=== PATIENT | female | born 1940 | race Caucasian/White ===

== ENCOUNTER 2017-04-11 19:38 | Inpatient (IN) | payer MEDICARE, MEDICAID ==
[2017-04-11] MEDS ORDERED: Albuterol 2.5 MG/3 ML NEB.SOL* (0.083%) INH PRN (20:13)
[2017-04-11] MEDS ORDERED: Piperacillin/Tazobac ADVAN(*) 3.375 GM in NS 0.9% 100 ML* 100 ML IVPB ONE (20:17)
[2017-04-11] MEDS ORDERED: NS 0.9% 1000 ML* 1,000 ML IV SCH (20:30)
[2017-04-11 21:20] LABS: Hematocrit 43 % (35-47); Hemoglobin 13.8 g/dl (12.0-16.0); Mean Corpuscular HGB Conc 32 g/dl (31-36); Mean Corpuscular Hemoglobin 29 pg (27-31); Mean Corpuscular Volume 92 fL (80-97); Mean Platelet Volume 10 um3 (7.4-10.4); Red Blood Count 4.71 10^6/ul (4.0-5.4); Red Cell Distribution Width 14 % (10.5-15); White Blood Count 26.1 10^3/ul (3.5-10.8)
[2017-04-11 21:30] LABS: Albumin 3.5 g/dL (3.2-5.2); BUN/Creatinine Ratio 26.6 (8-20); Calcium 9.9 mg/dL (8.6-10.3); Direct Bilirubin 0.3 mg/dL (0.03-0.18); EGFR African American 36.9 (>60); EGFR Non-African American 28.7 (>60); Globulin 4.5 g/dL (2-4); Indirect Bilirubin 0.4 mg/dL (0.3-1.0); Potassium 4.1 mmol/L (3.5-5.0); Total Bilirubin 0.7 mg/dL (0.2-1.0)
[2017-04-11 21:33] LABS: Troponin I 0.04 ng/mL (<0.04)
[2017-04-11] MEDS ORDERED: Levofloxacin 500 MG IVPREMIX(* 500 MG/100 ML BAG IVPB ONE (21:58)
--- NOTE | 2017-04-11 22:11 | RAD ---
Indication: Fever, sepsis. Single frontal view of the chest performed at 2119 hours was reviewed. Comparison is made with previous exam dated July 31, 2015. Cardiomegaly is noted. Mild vascular congestion is noted. Left base atelectasis is noted. IMPRESSION: CARDIOMEGALY. MILD INTERSTITIAL EDEMA IS NOTED.
[2017-04-11] MEDS ORDERED: Acetaminophen TAB* 325 MG PO PRN ×2 (23:03→23:05)
[2017-04-11] MEDS ORDERED: CMCS: Melatonin (NF) 3 MG TAB PO PRN (23:09)
[2017-04-11] MEDS ORDERED: Ondansetron INJ* 2 MG/ML VIAL IV PRN (23:21)
--- NOTE | 2017-04-12 00:14 | HP ---
H&P (Free Text) History and Physical: PCP: Jesenia Date/Time: 04/11/2017 2282 CC: "They [[facility] staff] thought I was sick." HPI: Mrs Munoz is a 76YO female HX chronic diastolic HF, DM2, AFIB who states she doesn't know why she is in the ER. She was brought in by ambulance from [facility] with report of confusion & fever to 102F. She reports chills, but denies fever, sweats, N/V/D, chest pain, cough, congestion, headache, neck pain , abdominal pain, earache, sore throat, change in bowel/bladder, open wound, and rash. She adds that she "feels fine". PMedHx DM2, insulin requiring CKD stg 3b chronic diastolic HF AFIB, on warfarin HTN GERD Ambulatory Orders Nursing to reconcile. Ascorbic Acid [Vitamin C] 250 mg PO DAILY 03/16/15 Cholecalciferol [Vitamin D3] 5,000 unit PO WEEKLY 03/16/15 Ferrous Sulfate TAB* 325 mg PO DAILY 03/16/15 Fesoterodine (NF) [Toviaz (NF)] 8 mg PO DAILY 03/16/15 Insulin Detemir (NF) [Levemir (NF)] 17 unit SUBCUT BID 03/16/15 Omeprazole CAP* [Prilosec CAP* 20 MG] 20 mg PO DAILY 03/16/15 Pregabalin CAP(*) [Lyrica CAP(*)] 100 mg PO BID 03/16/15 Simvastatin (NF) [Zocor (NF)] 40 mg PO DAILY 03/16/15 Torsemide TAB* [Demadex 20 MG*] 20 mg PO DAILY 03/16/15 HYDROcodone/ACETAMIN 5-325 MG* [[place] 5-325 TAB*] 2 tab PO Q4H PRN 04/08/15 Calcium Carbonate-Cholecalcife [Calcium 500+D 500-200 mg-Unit] 1 tab PO DAILY Polyethylene Glycol 3350* [Miralax*] 17 gm PO DAILY 07/31/15 Senna/Docusate (NF) [Sennokot-S(NF)] 2 tab PO BEDTIME 07/31/15 predniSONE TAB* [Deltasone TAB*] 5 mg PO DAILY 07/31/15 Heparin Sodium (Porcine) [Heparin Sodium] 5,000 unit SUBCUT Q8H 3 Days ml 08/02 Levofloxacin TAB* [Levaquin 250 Tab*] 250 mg PO DAILY #5 tab 08/03/15 Warfarin TAB(*) [Coumadin TAB(*)] 4 mg PO DAILY #0 08/03/15 Allergies No Known Allergies Allergy (Verified 07/31/15 15:51) SocHx: no tobacco, alcohol, or recreational drugs; resides at [facility], wheelchair bound; DNR code status FamHx: reviewed, paucity of information, non-contributory to presentation ROS: as above, otherwise reviewed and all were negative vitals: Vital Signs Temp 38.2 C 04/11/17 23:50 Pulse 86 04/11/17 23:50 Resp 16 04/11/17 23:50 BP 140/65 04/11/17 23:50 Pulse Ox 96 04/11/17 23:50 Intake & Output 04/11/17 04/11/17 04/12/17 11:59 23:59 11:59 Intake Total 1200 Balance 1200 Weight 136.078 kg Intake: IV Fluids 1200 Constitutional: NAD, normally developed, supermorbidly obese white female HEENM: atraumatic; sclera/conjunctiva: non-icteric/clear; hearing: clinically intact; oropharynx: clear, mucosa tacky Neck: soft tissue: no nuchal rigidity, non-tender; thyroid: normal Pulmonary: diminished B with sparse mild crackles, fair aeration, no accessory muscle use CV: RR/RR, normal S1S2, no carotid bruit, no jugular venous distention, 2+ B DP/ PT, no edema Abdominal: soft, non-distended, non-tender, no rebound/guarding/rigidity, normoactive bowel sounds, no hepatosplenomegaly or masses, no costovertebral angle tenderness Lymph: neck: ; axilla: ; groin: Musculoskeletal: general: grossly intact, non-tender to palpation; gait: non- ambulatory at baseline, uses wheelchair Integumental: normal appearance and texture of exposed skin Psychiatric orientation: AA&O to PP, not ST affect: calm mood: cooperative eye contact: fair content: unreliable responses: timely insight: poor Testing: Lab Results 04/11/17 04/11/17 04/11/17 Range/Units 21:02 21:02 21:02 WBC 26.1 H (3.5-10.8) 10^3/ul RBC 4.71 (4.0-5.4) 10^6/ul Hgb 13.8 (12.0-16.0) g/dl Hct 43 (35-47) % MCV 92 (80-97) fL MCH 29 (27-31) pg MCHC 32 (31-36) g/dl RDW 14 (10.5-15) % Plt Count 534 H (150-450) 10^3/ul MPV 10 (7.4-10.4) um3 Neut % (Auto) 74.9 (38-83) % Lymph % (Auto) 14.7 L (25-47) % [place] % (Auto) 8.7 (1-9) % Eos % (Auto) 0.4 (0-6) % Baso % (Auto) 1.3 (0-2) % Absolute Neuts (auto) 19.5 H (1.5-7.7) 10^3/ul Absolute Lymphs (auto) 3.8 (1.0-4.8) 10^3/ul Absolute Monos (auto) 2.3 H (0-0.8) 10^3/ul Absolute Eos (auto) 0.1 (0-0.6) 10^3/ul Absolute Basos (auto) 0.3 H (0-0.2) 10^3/ul Absolute Nucleated RBC 0.02 10^3/ul Nucleated RBC % 0.1 INR (Anticoag Therapy) 1.20 H (0.77-1.02) APTT 58.1 H (26.0-36.3) seconds Sodium 136 (133-145) mmol/L Potassium 4.1 (3.5-5.0) mmol/L Chloride 86 L (101-111) mmol/L Carbon Dioxide 43 H* (22-32) mmol/L Anion Gap 7 (2-11) mmol/L BUN 46 H (6-24) mg/dL Creatinine 1.73 H (0.51-0.95) mg/dL Est GFR ( Amer) 36.9 (>60) Est GFR (Non-Af Amer) 28.7 (>60) BUN/Creatinine Ratio 26.6 H (8-20) Glucose 197 H (70-100) mg/dL Lactic Acid (0.5-2.0) mmol/L Calcium 9.9 (8.6-10.3) mg/dL Total Bilirubin 0.70 (0.2-1.0) mg/dL Direct Bilirubin 0.30 H (0.03-0.18) mg/dL Indirect Bilirubin 0.4 (0.3-1.0) mg/dL AST 18 (13-39) U/L ALT 8 (7-52) U/L Alkaline Phosphatase 129 H (34-104) U/L Troponin I 0.04 H* (<0.04) ng/mL Total Protein 8.0 (6.4-8.9) g/dL Albumin 3.5 (3.2-5.2) g/dL Globulin 4.5 H (2-4) g/dL Albumin/Globulin Ratio 0.8 L (1-3) 04/11/17 Range/Units 21:02 WBC (3.5-10.8) 10^3/ul RBC (4.0-5.4) 10^6/ul Hgb (12.0-16.0) g/dl Hct (35-47) % MCV (80-97) fL MCH (27-31) pg MCHC (31-36) g/dl RDW (10.5-15) % Plt Count (150-450) 10^3/ul MPV (7.4-10.4) um3 Neut % (Auto) (38-83) % Lymph % (Auto) (25-47) % [place] % (Auto) (1-9) % Eos % (Auto) (0-6) % Baso % (Auto) (0-2) % Absolute Neuts (auto) (1.5-7.7) 10^3/ul Absolute Lymphs (auto) (1.0-4.8) 10^3/ul Absolute Monos (auto) (0-0.8) 10^3/ul Absolute Eos (auto) (0-0.6) 10^3/ul Absolute Basos (auto) (0-0.2) 10^3/ul Absolute Nucleated RBC 10^3/ul Nucleated RBC % INR (Anticoag Therapy) (0.77-1.02) APTT (26.0-36.3) seconds Sodium (133-145) mmol/L Potassium (3.5-5.0) mmol/L Chloride (101-111) mmol/L Carbon Dioxide (22-32) mmol/L Anion Gap (2-11) mmol/L BUN (6-24) mg/dL Creatinine (0.51-0.95) mg/dL Est GFR ( Amer) (>60) Est GFR (Non-Af Amer) (>60) BUN/Creatinine Ratio (8-20) Glucose (70-100) mg/dL Lactic Acid 1.6 (0.5-2.0) mmol/L Calcium (8.6-10.3) mg/dL Total Bilirubin (0.2-1.0) mg/dL Direct Bilirubin (0.03-0.18) mg/dL Indirect Bilirubin (0.3-1.0) mg/dL AST (13-39) U/L ALT (7-52) U/L Alkaline Phosphatase (34-104) U/L Troponin I (<0.04) ng/mL Total Protein (6.4-8.9) g/dL Albumin (3.2-5.2) g/dL Globulin (2-4) g/dL Albumin/Globulin Ratio (1-3) ECG, personally reviewed: sinus tachycardia rate 103, no ischemia CXR, personally reviewed: IMPRESSION: CARDIOMEGALY. MILD INTERSTITIAL EDEMA IS NOTED. Impression: 76F presenting from [place] w/ AMS and fever to 102F found to have bibasilar pneumonia w/ probable L effusion DIAGNOSIS & PLAN Primary sepsis 2nd bibasilar pneumonia w/ probable L effusion, HCAP : IV piperacillin & levofloxacin; will hold on using vancomycin to avoid nephrotoxicity as her renal function is stg 3b : IVFs, cautiously given chronic distolic HF : supplemental oxygen : blood & sputum CXs : check urine Legionella & S pneumo antigens : check rapid influenza : supportive care Secondary DM2, insulin requiring : update A1c : insulin carb ratio diet : basal/bolus/correctional insulin : ACHS glucometry CKD stg 3b : montitor periodically chronic diastolic HF : daily weights : strict I&Os AFIB, on warfarin : review meds once reconciled HTN : review meds once reconciled GERD : continue omeprazole Admission Rational: inpatient for sepsis 2nd HCAP requiring IVFs & IV ABX in patient at high risk of rapid/terminal decompensation; inappropriate for outpatient setting DVTp: warfarin, once reconciled Code Status: DNR/I HCP: son, Syed
[2017-04-12 01:47] LABS: Urine Bacteria Absent (Absent); Urine Bilirubin Negative (Negative); Urine Glucose Negative (Negative); Urine Nitrite Negative (Negative)
[2017-04-12] MEDS: NS 0.9% 1000 ML* 1,000 ML IV SCH ×2 (02:32→13:26)
[2017-04-12] MEDS ORDERED: Omeprazole CAP* 20 MG PO SCH (06:00)
[2017-04-12] MEDS ORDERED: Cefepime 1 GM in Dextrose(*) 1 GM/50 ML BAG IV SCH (06:00)
[2017-04-12 06:41] LABS: Hematocrit 40 % (35-47); Mean Corpuscular HGB Conc 32 g/dl (31-36); Mean Corpuscular Hemoglobin 30 pg (27-31); Mean Corpuscular Volume 93 fL (80-97); Mean Platelet Volume 10 um3 (7.4-10.4); Red Blood Count 4.35 10^6/ul (4.0-5.4); Red Cell Distribution Width 14 % (10.5-15); White Blood Count 22.8 10^3/ul (3.5-10.8)
[2017-04-12 06:45] LABS: Comments Flag Yes
[2017-04-12 07:07] LABS: Calcium 9.2 mg/dL (8.6-10.3); EGFR African American 39.6 (>60); EGFR Non-African American 30.8 (>60); Potassium 3.4 mmol/L (3.5-5.0)
[2017-04-12] MEDS ORDERED: Docusate CAP* 100 MG PO SCH (09:00)
[2017-04-12] MEDS: Insulin LISPRO* 1 UNITS UNIT SUBCUT SCH ×8 (09:00→22:43)
[2017-04-12] MEDS: guaiFENesin ER TAB 600 MG PO SCH ×2 (09:01→22:22)
[2017-04-12 10:15] LABS: Troponin I 0.05 ng/mL (<0.04)
--- NOTE | 2017-04-12 18:01 | PN ---
Subjective Date of Service: 04/12/17 Interval History: Pt is feeling well. She denies any pain or SOB. She states she is not coughing much. Objective Active Medications: Acetaminophen (Tylenol Tab*) 650 mg PO Q6H PRN PRN Reason: FEVER/PAIN Last Admin: 04/12/17 02:51 Dose: 650 mg Guaifenesin (Mucinex*) 1,200 mg PO BID [facility] Last Admin: 04/12/17 09:01 Dose: 1,200 mg Levofloxacin/Dextrose (Levaquin 750 Mg Ivpremix(*)) 750 mg in 150 mls @ 100 mls /hr IVPB Q24H [facility] Sodium Chloride (Ns 0.9% 1000 Ml*) 1,000 mls @ 100 mls/hr IV PER RATE [facility] Last Admin: 04/12/17 13:26 Dose: 100 mls/hr Insulin Glargine (Lantus(*)) 17 units SUBCUT BID [facility] Stop: 04/13/17 20:00 Insulin Human Lispro (Humalog*) 0 units SUBCUT AC [facility] PRN Reason: Protocol Last Admin: 04/12/17 13:05 Dose: 4 unit Insulin Human Lispro (Humalog*) 0 units SUBCUT ACHS [facility] PRN Reason: Protocol Last Admin: 04/12/17 13:05 Dose: 6 unit Melatonin (Melatonin (Nf)) 3 mg PO BEDTIME PRN; Protocol PRN Reason: Sleep Omeprazole (Prilosec Cap*) 20 mg PO DAILY@0600 [facility] Last Admin: 04/12/17 05:40 Dose: 20 mg Ondansetron HCl (Zofran Inj*) 4 mg IV Q6H PRN PRN Reason: NAUSEA Vital Signs - 8 hr 04/12/17 04/12/17 11:21 15:31 Temperature 98.2 F 98.1 F Pulse Rate 76 76 Respiratory 16 15 Rate Blood Pressure 112/43 126/63 (mmHg) O2 Sat by Pulse 95 97 Oximetry Oxygen Devices in Use Now: Nasal Cannula Appearance: Elderly obese female sitting in a recliner, NAD Eyes: No Scleral Icterus Ears/Nose/Mouth/Throat: Mucous Membranes Moist Respiratory: Symmetrical Chest Expansion and Respiratory Effort, Clear to Auscultation - few bibasilar crackles Cardiovascular: NL Sounds; No Murmurs; No JVD, RRR, No Edema Abdominal: NL Sounds; No Tenderness; No Distention Extremities: No Clubbing, Cyanosis Skin: No Rash or Ulcers, No Nodules or Sclerosis Neurological: - - pleasantly confused Result Diagrams: 04/12/17 06:13 04/12/17 06:13 Microbiology and Other Data: Microbiology 04/12/17 01:20 Legionella Urinary Antigen - Final Urine Negative Legionella Streptococcus pneumoniae Ag Screen - Final Negative S. pneumo Antigen 04/12/17 02:00 Nasal Screen MRSA (PCR)(ANDREEA) - Final Nasal Mrsa Negative 04/12/17 02:00 Influenza Types A,B Antigen (ANDREEA) - Final Nasal Specimen received for Influenza A/B Molecular testing Assess/Plan/Problems-Billing Ms Munoz is a 76 yo F who has a h/o type II DM, afib, diastolic CHF, CKD and HTN who presented to the ER with confusion and fever from [facility]. - Patient Problems (1) Sepsis Current Visit: Yes Status: Acute Comment: Sepsis by sepsis 2 criteria ( leukocytosis and fever). Continue IVF and treat bibasilar pneumonia. (2) Pneumonia Current Visit: Yes Status: Acute Code(s): J18.9 - PNEUMONIA, UNSPECIFIED ORGANISM SNOMED Code(s): 785509958 Comment: The patient has a bibasilar pneumonia. Will check sputum culture, legionella and s. pneumoniae urinary antigens. Continue levaquin 750mg IV daily. (3) Type 2 diabetes mellitus Current Visit: Yes Status: Acute Comment: Sugars are under fair control. Monitor on home dose of insulin. (4) CKD (chronic kidney disease) stage 3, GFR 30-59 ml/min Current Visit: Yes Status: Acute Code(s): N18.3 - CHRONIC KIDNEY DISEASE, STAGE 3 (MODERATE) SNOMED Code(s): 919215137 Comment: Creatinine is close to baseline. Hold diuretic and follow up labs tomorrow. (5) Afib Current Visit: Yes Status: Acute Code(s): I48.91 - UNSPECIFIED ATRIAL FIBRILLATION SNOMED Code(s): 80191503 Comment: INR is subtherapeutic. Will increase coumadin to 6mg daily. She is in a controlled rate. (6) DVT prophylaxis Current Visit: Yes Status: Acute Code(s): TIR7344 - SNOMED Code(s): 362764817 Comment: SQ heparin while INR is subtherapeutic. (7) DNR (do not resuscitate) Current Visit: Yes Status: Acute
[2017-04-12] MEDS ORDERED: HYDROcodone/ACETAMIN 5-325 MG* 1 TAB PO PRN (18:15)
[2017-04-12] MEDS ORDERED: Warfarin TAB(*) 6 MG PO SCH (18:17)
[2017-04-12] MEDS ORDERED: Insulin GLARGINE(*) 1 UNITS UNIT SUBCUT SCH (21:00)
[2017-04-12] MEDS ORDERED: Levofloxacin 750 MG IVPREMIX(* 750 MG/150 ML BAG IVPB SCH (22:00)
[2017-04-12] MEDS: Heparin VIAL(*) 5000 UNITS/ML VIAL (FIVE THOUSAND) SUBCUT SCH (22:22)
[2017-04-12] MEDS: Pregabalin CAP(*) 100 MG PO SCH (22:22)
[2017-04-12] MEDS: Insulin GLARGINE(*) 1 UNITS UNIT SUBCUT SCH (22:36)
[2017-04-13] MEDS: NS 0.9% 1000 ML* 1,000 ML IV SCH ×2 (01:16→11:10)
[2017-04-13] MEDS ORDERED: Albuterol 2.5 MG/3 ML NEB.SOL* (0.083%) INH ONE (01:20)
[2017-04-13] MEDS: Heparin VIAL(*) 5000 UNITS/ML VIAL (FIVE THOUSAND) SUBCUT SCH (06:12)
[2017-04-13] MEDS: Insulin LISPRO* 1 UNITS UNIT SUBCUT SCH ×4 (08:03→12:41)
[2017-04-13] MEDS ORDERED: predniSONE TAB* 5 MG PO SCH (09:00)
[2017-04-13] MEDS ORDERED: Omeprazole CAP* 20 MG PO SCH (09:00)
[2017-04-13] MEDS ORDERED: Atorvastatin* 20 MG TAB PO SCH (09:00)
[2017-04-13 10:07] LABS: Hematocrit 41 % (35-47); Mean Corpuscular HGB Conc 32 g/dl (31-36); Mean Corpuscular Hemoglobin 30 pg (27-31); Mean Corpuscular Volume 93 fL (80-97); Mean Platelet Volume 10 um3 (7.4-10.4); Red Blood Count 4.42 10^6/ul (4.0-5.4); Red Cell Distribution Width 14 % (10.5-15); White Blood Count 18.1 10^3/ul (3.5-10.8)
[2017-04-13 10:08] LABS: Add Diff/Slide Review? Slide Review Added; Comments Flag Yes
[2017-04-13] MEDS: Pregabalin CAP(*) 100 MG PO SCH (10:08)
[2017-04-13] MEDS: guaiFENesin ER TAB 600 MG PO SCH (10:08)
[2017-04-13] MEDS: Insulin GLARGINE(*) 1 UNITS UNIT SUBCUT SCH (10:10)
[2017-04-13] MEDS: Polyethylene Glycol 3350* 17 GM PACKET PO SCH ×2 (10:10→10:12)
[2017-04-13 10:21] LABS: BUN/Creatinine Ratio 25.8 (8-20); Calcium 9.4 mg/dL (8.6-10.3); EGFR African American 52.3 (>60); EGFR Non-African American 40.7 (>60); Potassium 3.5 mmol/L (3.5-5.0)
[2017-04-13 12:09] VITALS: BP 136/59
--- NOTE | 2017-04-13 15:12 | DS ---
CC: Providers at [facility] * DISCHARGE SUMMARY DATE OF ADMISSION: 04/11/2017 DATE OF DISCHARGE: 04/13/2017 PRIMARY CARE PROVIDER: Provider at [facility] PRINCIPAL DIAGNOSIS: 1. Probable pneumonia. SECONDARY DIAGNOSES: 1. Type 2 diabetes. 2. Stage 4 chronic kidney disease. 3. Chronic diastolic congestive heart failure. 4. Atrial fibrillation. 5. Hypertension. 6. Gastroesophageal reflux disease. DISCHARGE MEDICATIONS: 1. Prednisone 5 mg p.o. daily. 2. Torsemide 20 mg p.o. daily. 3. Simvastatin 40 mg p.o. daily. 4. Senokot S 2 tabs p.o. q.h.s. 5. Lyrica 100 mg p.o. b.i.d. 6. MiraLAX 17 g p.o. daily. 7. Omeprazole 20 mg p.o. daily. 8. Insulin detemir 17 units subcutaneous twice a day. 9. Heparin 5000 units subcutaneous every 8 hours until INR is greater than 2. 10. [place] 5/325 two tabs p.o. every 4 hours p.r.n. pain. 11. Toviaz 8 mg p.o. daily. 12. Ferrous sulfate 325 mg p.o. daily. 13. Vitamin D3 5000 units p.o. weekly. 14. Calcium Plus D 1 tab p.o. daily. 15. Ascorbic acid 250 mg p.o. daily. 16. Coumadin 6 mg p.o. daily (new dose). 17. Melatonin 3 mg p.o. q.h.s. p.r.n. insomnia. 18. Levofloxacin 500 mg p.o. daily x4 doses. HOSPITAL COURSE: Ms. Munoz is a 76-year-old female who was brought to the emergency room with confusion and fever. The patient in the emergency room stated that she felt fine. She reported that the [facility] staff thought she was ill. The patient was found to have possible bibasilar pneumonia and was admitted, and started on IV antibiotic therapy. This has been tailored to levofloxacin. She will continue on levofloxacin 500 mg p.o. daily x4 more doses. The patient did have a markedly elevated white blood cell count of 26.1 thousand on admission. It is down to 18.1 thousand on the day of discharge. The patient has been afebrile since admission. The patient is requiring supplemental oxygen at 3L per minute but states she uses oxygen at [facility]. Also on admission patient was found to have also have elevated platelet count. This is trending down. Of note, the patient does have a chronically elevated white blood cell count and platelet count. Patient was also found to have increased creatinine above her baseline. This has now trended down back to her baseline with hydration. At this point the patient is felt to be stable for discharge back to [facility]. FOLLOWUP CONCERNS: The patient is being discharged to [facility] today 04/13/17. ACTIVITY LEVEL: As tolerated. DIET: Diabetic heart healthy. CONDITION ON DISCHARGE: Stable. 35 minutes was spent discharging this patient. [id number]/CPS #: [id number] EVELINE
== END 2017-04-13 16:51 | DRG 871 ==
LOC: ED 19:38 → MEDTELE 22:35
PROVIDERS: ADMIT Hospitalist; ATTEND Hospitalist
DX: A41.9 Sepsis, unspecified organism (principal); J18.9 Pneumonia, unspecified organism; N18.4 Chronic kidney disease, stage 4 (severe); E11.22 Type 2 diabetes mellitus with diabetic chronic kidney disease; I48.91 Unspecified atrial fibrillation; I13.0 Hypertensive heart and chronic kidney disease with heart failure and stage 1 through stage 4 chronic kidney disease, or unspecified chronic kidney disease; I50.32 Chronic diastolic (congestive) heart failure; Z68.41 Body mass index [BMI] 40.0-44.9, adult; E66.01 Morbid (severe) obesity due to excess calories; K21.9 Gastro-esophageal reflux disease without esophagitis; Z66 Do not resuscitate; Z79.52 Long term (current) use of systemic steroids; Z99.81 Dependence on supplemental oxygen; Z79.4 Long term (current) use of insulin; Z79.01 Long term (current) use of anticoagulants
CPT/HCPCS: 36415; 71010; 80048; 80053; 80076; 81003; 81015; 83036; 83605; 84484; 85025; 85610; 85730; 87040; 87502; 87641; 87899; 93005; 94640; A9270-GY; J0692; J1644; J1956; J2543; J7512

== ENCOUNTER 2017-04-14 14:40 | Inpatient (IN) | payer MEDICAID, MEDICARE ==
--- NOTE | 2017-04-14 15:44 | RAD ---
Indication: Shortness of breath, respiratory distress. Chronic obstructive pulmonary disease. Comparison: April 11, 2017 chest radiograph and March 18, 2015 CT abdomen. Technique: Upright AP 1524 hours Report: Elevated lung volumes and mild prominence of the interstitial markings. Grossly clear pleural spaces. Negative for pneumothorax. Cardiomegaly. Prominent mildly ill-defined central pulmonary vasculature with cephalization. Pulmonary vascular congestion may account for the prominence of the RIGHT hilum. IMPRESSION: 1. The constellation of findings favors pulmonary vascular congestion and interstitial edema. Radiographic follow-up suggested after therapy to assess for decrease in size of the RIGHT hilum to exclude a RIGHT hilar mass. 2. Stigmata of chronic obstructive pulmonary disease.
[2017-04-14] MEDS ORDERED: Ondansetron INJ* 2 MG/ML VIAL IV PRN (15:52)
[2017-04-14] MEDS ORDERED: Melatonin (NF) 3 MG TAB PO PRN (15:56)
[2017-04-14] MEDS ORDERED: Albuterol 2.5 MG/3 ML NEB.SOL* (0.083%) INH PRN (15:58)
[2017-04-14] MEDS ORDERED: Cefepime 2 GM in Dextrose(*) 2 GM/50 ML BAG IV SCH (16:00)
[2017-04-14] MEDS ORDERED: NS 0.9% 1000 ML* 1,000 ML IV SCH (16:00)
[2017-04-14] MEDS ORDERED: Albuterol/Ipratropium NEB.SOL* Albuterol 2.5 MG/Ipratropium 0.5 MG 3 ML INH SCH ×3 (16:00→19:00)
[2017-04-14] MEDS ORDERED: Dextrose 50% Syringe 50 ML* 25 GM/50 ML SYRINGE IV PUSH PRN (16:01)
[2017-04-14] MEDS ORDERED: Cefepime 2 GM in Dextrose(*) 2 GM/50 ML BAG IV ONE (16:22)
[2017-04-14 16:35] LABS: Add Diff/Slide Review? Manual Diff Added; Comments Flag Yes; Hematocrit 41 % (35-47); Hemoglobin 12.9 g/dl (12.0-16.0); Mean Corpuscular HGB Conc 32 g/dl (31-36); Mean Corpuscular Hemoglobin 30 pg (27-31); Mean Corpuscular Volume 93 fL (80-97); Mean Platelet Volume 10 um3 (7.4-10.4); Red Blood Count 4.35 10^6/ul (4.0-5.4); Red Cell Distribution Width 14 % (10.5-15); White Blood Count 13.4 10^3/ul (3.5-10.8)
[2017-04-14 16:47] LABS: Albumin 3.4 g/dL (3.2-5.2); C Reactive Protein 49.11 mg/L (< 5.00); Calcium 9.4 mg/dL (8.6-10.3); EGFR African American 47.9 (>60); EGFR Non-African American 37.3 (>60); Globulin 4.5 g/dL (2-4); Potassium 3.2 mmol/L (3.5-5.0); Total Bilirubin 0.3 mg/dL (0.2-1.0); Total Protein 7.9 g/dL (6.4-8.9)
[2017-04-14 16:49] LABS: Troponin I 0.01 ng/mL (<0.04)
[2017-04-14] MEDS ORDERED: Potassium Chlor TAB* 20 MEQ TAB.ER PO ONE (16:49)
[2017-04-14 16:52] LABS: Eosinophils % 2 % (0-6); Immature Granulocytes 1 % (0-9); Neutrophil % 61 % (38-83); Reactive Lymph % 7 % (0-6)
[2017-04-14 16:53] LABS: Add Path Review? YES; RBC Morphology Normal (Normal)
[2017-04-14] MEDS: Warfarin TAB(*) 6 MG PO SCH (17:52)
[2017-04-14] MEDS: Insulin LISPRO* 1 UNITS UNIT SUBCUT SCH (17:52)
[2017-04-14] MEDS ORDERED: Azithromycin IV(*) 500 MG in D5W 250 ML BAG* 250 ML IVPB SCH (18:00)
[2017-04-14] MEDS: Azithromycin IV(*) 500 MG in NS 0.9% 250 ML* 250 ML IVPB SCH (18:26)
[2017-04-14] MEDS ORDERED: Vancomycin(*) 2,000 MG in NS 0.9% 500 ML* 500 ML IVPB ONE (18:30)
[2017-04-14] MEDS: Pregabalin CAP(*) 100 MG PO SCH (20:49)
[2017-04-14] MEDS: Heparin VIAL(*) 5000 UNITS/ML VIAL (FIVE THOUSAND) SUBCUT SCH (20:56)
[2017-04-14] MEDS: Mometasone/Formoter 200/5 MDI INH SCH (21:15)
--- NOTE | 2017-04-14 21:18 | ED ---
Orion Millan Gabriel, scribed for Jack Crews MD on 04/14/17 at 1452 . Respiratory - HPI Summary HPI Summary: This patient is a 76 year old F BIBA to [facility] with a chief complaint of PNA exacerbation since [employer]. Patient reports chills and fever. Patient denies SOB. Patient was admitted last night for PNA and was released this morning. She has used her at home neb with some relief and uses 2L of NC O2 at home. - History of Current Complaint Chief Complaint: EDShortnessOfBreath Stated Complaint: RESPIRATORY DISTRESS Time Seen by Provider: 04/14/17 14:49 Hx Obtained From: Patient Onset/Duration: Still Present Timing: Constant Alleviating Factor(s): Other - neb Associated Signs and Symptoms: Fever, Chills - Allergy/Home Medications Allergies/Adverse Reactions: Allergies Allergy/AdvReac Type Severity Reaction Status Date / Time Cetirizine [From [facility]] Allergy Unknown Verified 04/14/17 14:59 Reaction Details PMH/Surg Hx/FS Hx/Imm Hx Previously Healthy: No Endocrine/Hematology History: Reports: Hx Diabetes - DM II requries insulin Cardiovascular History: Reports: Hx Hypertension, Other Cardiovascular Problems/ Disorders - Afib, Chronic diastolic heart failure Respiratory History: Reports: Hx Chronic Obstructive Pulmonary Disease (COPD) GI History: Reports: Hx Gastroesophageal Reflux Disease History: Comment Only: Other Problems/Disorders - CKD stage 3 Sensory History: Reports: Hx Contacts or Glasses - glasses Denies: Hx Hearing Aid Opthamlomology History: Reports: Hx Contacts or Glasses - glasses Psychiatric History: Reports: Hx Depression - Surgical History Surgery Procedure, Year, and Place: hysterectomy Hx Anesthesia Reactions: No - Immunization History Date of Tetanus Vaccine: Unk Date of Influenza Vaccine: Fall 2014 - Family History Known Family History: Positive: Diabetes - Social History Alcohol Use: None Substance Use Type: Reports: None Smoking Status (MU): Former Smoker Have You Smoked in the Last Year: No Review of Systems Positive: Fever, Chills Positive: Other - PNA exacerbation. Negative: Shortness Of Breath All Other Systems Reviewed And Are Negative: Yes Physical Exam - Summary Physical Exam Summary: Appearance: The patient is obese in no acute distress and in no acute pain. Skin: The skin is warm and dry and skin color reflects adequate perfusion. HEENT: ~The head is normocephalic and atraumatic. The pupils are equal and reactive. The conjunctivae are clear and without drainage. ~Nares are patent and without drainage. ~Mouth reveals moist mucous membranes and the throat is without erythema and exudate. ~The external ears are intact. The ear canals are patent and without drainage. The tympanic membranes are intact. Neck: the neck is supple with full range of motion and non-tender. There are no carotid bruits. ~There is no neck vein distension. Respiratory: Chest is non-tender. ~Lungs are clear to auscultation and very decreased breath sounds Cardiovascular: Heart is regular rate and rhythm. ~There is no murmur or rub auscultated. ~ pulses are symmetrical and equal. Abdomen: The abdomen is soft and non-tender. ~There are normal bowel sounds heard in all four quadrants and there is no organomegaly palpated. Musculoskeletal: There is no back tenderness noted. ~Extremities are non-tender with full range of motion. ~There is good capillary refill. ~There is peripheral pitting edema Neurological: Patient is alert and oriented to person, place and time. ~The patient has symmetrical motor strength in all four extremities. ~Cranial nerves are grossly intact. Deep tendon reflexes are symmetrical and equal in all four extremities. Psychiatric: The patient has an appropriate affect and does not exhibit any anxiety or depression. Triage Information Reviewed: Yes Vital Signs On Initial Exam: Initial Vitals BP 156/68 04/14/17 14:47 Vital Signs Reviewed: Yes Diagnostics - Vital Signs Vital Signs Temp Pulse Resp BP Pulse Ox 04/14/17 17:00 99 19 125/58 92 04/14/17 16:39 98 19 149/66 92 04/14/17 16:30 172/72 04/14/17 16:29 100 93 04/14/17 16:05 103 87 04/14/17 16:00 130/79 04/14/17 15:58 103 99 04/14/17 15:30 95 147/64 80 04/14/17 15:00 106 133/75 93 04/14/17 14:49 101.4 F 104 16 156/68 88 04/14/17 14:47 156/68 - Laboratory Lab Results: Lab Results 04/14/17 04/14/17 04/14/17 Range/Units 16:15 16:15 16:15 WBC 13.4 H (3.5-10.8) 10^3/ul RBC 4.35 (4.0-5.4) 10^6/ul Hgb 12.9 (12.0-16.0) g/dl Hct 41 (35-47) % MCV 93 (80-97) fL MCH 30 (27-31) pg MCHC 32 (31-36) g/dl RDW 14 (10.5-15) % Plt Count 604 H D (150-450) 10^3/ul MPV 10 (7.4-10.4) um3 Immature Gran % (Auto) 1 (0-9) % Absolute Neuts (auto) 8.3 H (1.5-7.7) 10^3/ul Absolute Lymphs (auto) 4.0 (1.0-4.8) 10^3/ul Absolute Monos (auto) 0.8 (0-0.8) 10^3/ul Absolute Eos (auto) 0.3 (0-0.6) 10^3/ul Absolute Basos (auto) 0 (0-0.2) 10^3/ul Absolute Nucleated RBC 0.01 10^3/ul Neutrophils % 61 (38-83) % Band Neutrophils % 1 (0-8) % Lymphocytes % 23 L (25-47) % Reactive Lymphs % 7 H (0-6) % Monocytes % 6 (0-13) % Eosinophils % 2 (0-6) % Normal RBC Morphology Normal (Normal) Hem Pathologist Commnt Pending Sodium 139 (133-145) mmol/L Potassium 3.2 L (3.5-5.0) mmol/L Chloride 91 L (101-111) mmol/L Carbon Dioxide 42 H* (22-32) mmol/L Anion Gap 6 (2-11) mmol/L BUN 29 H (6-24) mg/dL Creatinine 1.38 H (0.51-0.95) mg/dL Est GFR ( Amer) 47.9 (>60) Est GFR (Non-Af Amer) 37.3 (>60) BUN/Creatinine Ratio 21.0 H (8-20) Glucose 276 H (70-100) mg/dL Lactic Acid (0.5-2.0) mmol/L Calcium 9.4 (8.6-10.3) mg/dL Total Bilirubin 0.30 (0.2-1.0) mg/dL AST 16 (13-39) U/L ALT 12 (7-52) U/L Alkaline Phosphatase 93 (34-104) U/L Troponin I 0.01 (<0.04) ng/mL C-Reactive Protein 49.11 H (< 5.00) mg/L B-Natriuretic Peptide 74 ( - 100) pg/mL Total Protein 7.9 (6.4-8.9) g/dL Albumin 3.4 (3.2-5.2) g/dL Globulin 4.5 H (2-4) g/dL Albumin/Globulin Ratio 0.8 L (1-3) Influenza A (Rapid) (Negative) Influenza B (Rapid) (Negative) 04/14/17 04/14/17 Range/Units 16:15 16:39 WBC (3.5-10.8) 10^3/ul RBC (4.0-5.4) 10^6/ul Hgb (12.0-16.0) g/dl Hct (35-47) % MCV (80-97) fL MCH (27-31) pg MCHC (31-36) g/dl RDW (10.5-15) % Plt Count (150-450) 10^3/ul MPV (7.4-10.4) um3 Immature Gran % (Auto) (0-9) % Absolute Neuts (auto) (1.5-7.7) 10^3/ul Absolute Lymphs (auto) (1.0-4.8) 10^3/ul Absolute Monos (auto) (0-0.8) 10^3/ul Absolute Eos (auto) (0-0.6) 10^3/ul Absolute Basos (auto) (0-0.2) 10^3/ul Absolute Nucleated RBC 10^3/ul Neutrophils % (38-83) % Band Neutrophils % (0-8) % Lymphocytes % (25-47) % Reactive Lymphs % (0-6) % Monocytes % (0-13) % Eosinophils % (0-6) % Normal RBC Morphology (Normal) Hem Pathologist Commnt Sodium (133-145) mmol/L Potassium (3.5-5.0) mmol/L Chloride (101-111) mmol/L Carbon Dioxide (22-32) mmol/L Anion Gap (2-11) mmol/L BUN (6-24) mg/dL Creatinine (0.51-0.95) mg/dL Est GFR ( Amer) (>60) Est GFR (Non-Af Amer) (>60) BUN/Creatinine Ratio (8-20) Glucose (70-100) mg/dL Lactic Acid 1.9 (0.5-2.0) mmol/L Calcium (8.6-10.3) mg/dL Total Bilirubin (0.2-1.0) mg/dL AST (13-39) U/L ALT (7-52) U/L Alkaline Phosphatase (34-104) U/L Troponin I (<0.04) ng/mL C-Reactive Protein (< 5.00) mg/L B-Natriuretic Peptide ( - 100) pg/mL Total Protein (6.4-8.9) g/dL Albumin (3.2-5.2) g/dL Globulin (2-4) g/dL Albumin/Globulin Ratio (1-3) Influenza A (Rapid) Negative (Negative) Influenza B (Rapid) Negative (Negative) Result Diagrams: 04/14/17 16:15 04/14/17 16:15 Lab Statement: Any lab studies that have been ordered have been reviewed, and results considered in the medical decision making process. - Radiology CXR Radiology Interpretation Completed By: Radiologist - 1. The constellation of findings favors pulmonary vascular congestion and interstitial edema. Radiographic follow-up suggested after therapy to assess for decrease in size of the RIGHT hilum to exclude a RIGHT hilar mass. 2. Stigmata of chronic obstructive pulmonary disease. ED physician has reviewed this radiology report. - EKG 15:56 Cardiac Rate: Tachycardia EKG Rhythm: Sinus Tachycardia - at 102 BPM EKG Interpretation: horizontal axis, diffuse non-specific ST changes Disposition - Course Course Of Treatment: Ms. Munoz got worse at home and was hypoxic when the EMS crew got there in spite of 2l NC O2. She was a bit better by the time she arrived here but still relativiely hypoxic and febrile. She is being admitted to the hospitalist service. - Diagnoses Provider Diagnoses: Pneumonia - Physician Notifications Discussed Care Of Patient With: Shante Shaffer Time Discussed With Above Provider: 15:01 Instructed by Provider To: Other - Discussed patient care with Dr. Shaffer, hospitalist and they agreed to admit the patient after she has labs done. Discharge - Discharge Plan Condition: Stable Disposition: ADMITTED TO [facility] The documentation as recorded by the Orion sterling Gabriel accurately reflects the service I personally performed and the decisions made by me, Jack Crews MD.
--- NOTE | 2017-04-14 22:57 | HP ---
CC: [facility] * HISTORY AND PHYSICAL: DATE OF ADMISSION: 04/14/17 PRIMARY CARE PROVIDER: [facility]. ATTENDING PHYSICIAN WHILE IN THE HOSPITAL: Dr. Shante Shaffer * (report dictated by Scott Birch NP) CHIEF COMPLAINT: 1. Fever. 2. Hypoxia. HISTORY OF PRESENT ILLNESS: Ms. Munoz is a 76-year-old female patient, who was recently just discharged yesterday with probable pneumonia. She comes in to our ER today. She said when she left yesterday she was feeling good. She was at her baseline. She felt well. She was breathing better. She had no complaints of chest pain or shortness of breath. She had no abdominal discomfort. She said she had been coughing and no fevers and she felt like she was back to her baseline. Unfortunately, though today, the patient around noon time developed rigors. She was not feeling well. She was having chills. She was feeling weak. She is coughing little bit more. She was concerned so was nursing staff. They checked her, it was noted that she had a fever and she was hypoxic, so they sent her back to our emergency room for evaluation. Apparently , her O2 saturations were down in the 70s. The patient came in to the ED. She was evaluated and when asking the patient, she says that she does have some pain in her chest when she takes deep breath. She denies having any abdominal pain or any nausea or vomiting. She said that she is not feeling short of breath. She has been now coughing, it has been nonproductive, and she does admit to having a fever and there has been no nausea, vomiting, or diarrhea. She came in, was evaluated in the ED. There was concern that she may have recurrence of pneumonia and we were asked to evaluate for admission. PAST MEDICAL HISTORY: Significant for: 1. Diabetes. 2. AFib. 3. Hypertension. 4. History of CHF. 5. CKD. 6. History of overactive bladder. PAST SURGICAL HISTORY: 1. She had a history of left hip surgery. 2. She has had a hysterectomy. MEDICATIONS: The home meds according to the discharge summary yesterday: 1. Prednisone 5 mg daily. 2. Demadex 20 mg daily. 3. Simvastatin 40 mg daily. 4. Senna-S 2 tablets p.o. h.s. 5. Lyrica 100 mg p.o. b.i.d. 6. MiraLAX 17 g p.o. daily. 7. Omeprazole 20 mg p.o. daily. 8. Insulin detemir 17 units twice a day. 9. Heparin 5000 units subcu every 8 hours until INR greater than 2. 10. [place] 5/325 two tablets every 4 hours as needed for pain. 11. Toviaz 8 mg daily. 12. Ferrous sulfate 325 mg daily. 13. Vitamin D 5000 units p.o. weekly. 14. Calcium with vitamin D 1 tablet p.o. daily. 15. Vitamin C 250 units daily. 16. Coumadin 6 mg daily, which is a new dose for her. 17. Melatonin 3 mg at h.s. as needed. 18. Lyrica 500 mg daily for 4 more days. ALLERGIES TO MEDICATIONS: Include no known drug allergies. FAMILY HISTORY: Her mother had a history of MVA and in MVA. Father had history of heart disease. SOCIAL HISTORY: She does not smoke. She does not drink. Surrogate decision maker is her son, Syed. REVIEW OF SYSTEMS: There is a documented fever here. She denied having any significant weight change. There was no double vision. There was no ear discharge. She denied having any rhinorrhea. No sore throat. No thyroid enlargement. She does admit to having chest pain and described as a short stabbing pain, worsening while taking a deep breath. She denies having any abdominal pain. There has been no nausea or vomiting. No dysuria, no frequency. She denied having any seizure. No loss of consciousness. No pruritus and no skin ulcerations. Review of 14 systems completed, all others negative. PHYSICAL EXAMINATION GENERAL: At this time, Ms. Dennison is a 76-year-old female patient. She is sitting in the ED stretcher. She appears to be well nourished, well developed, and does not appear to be in any distress. VITAL SIGNS: Here today revealed blood pressure 156/68, pulse 106, respirations 16, O2 sat 93% on 3 L, temperature 101.4. HEENT: Head atraumatic. Eyes: EOMs intact. Sclerae anicteric and not pale. Throat: Oral mucosa appears to be moist. No oropharyngeal erythema. NECK: Supple. LUNGS: She had crackles on the right side. She had equal diaphragmatic expansion. HEART: Sounds S1, S2. Regular rate and rhythm. No murmurs, rubs, or gallops. ABDOMEN: Soft. It was flat. Nontender. Bowel sounds present. EXTREMITIES: Pulses were 2+ throughout. She had 2+ pitting edema bilaterally. 5/5 strength NEUROLOGICAL: She is awake, she is alert, she is oriented x3. Speech is clear. Tongue is midline. [employer] were equal, no gross focal deficits. SKIN: Grossly intact. DIAGNOSTIC TESTS/LAB DATA: Labs from yesterday, WBC of 18.1, RBC of 4.42, hemoglobin of 13.0, hematocrit of 41, platelet count of 489. Her INR yesterday was 1.22. Sodium 137, potassium 3.5, chloride 91, bicarb 39, BUN 33, creatinine 1.28, glucose was 216. She had a chest x-ray obtained today. Impression: Constellation of findings favors pulmonary vascular congestion and interstitial edema. Radiographic followup suggested decrease in size of the right hilum to exclude a right hilar mass, stigmata of chronic obstructive pulmonary disease. She did have an EKG obtained today as well, which revealed sinus tachycardia, rate of 102 with what appears to be no ST elevations or T-wave inversions. It was reviewed to the previous EKG. There appears to be a right bundle branch block, which is similar to previous EKG. Old medical records were reviewed. ASSESSMENT AND PLAN: Ms. Munoz is a 76-year-old female patient, coming into the ED today after it was found that she was having rigors and she was complaining of shortness of breath and found to be in hypoxia at [facility] after being discharged for presumed pneumonia. She will be admitted under inpatient status for: 1. Pneumonia with signs of sepsis as evidenced by temperature and fever. At this point, I am going to go ahead and hold off on giving her fluid boluses because her blood pressure is stable. She does appear to have some edema on the x-ray. She does have some crackles. I am not going to diurese her. I think we will try to support her with p.o. fluids and p.r.n. boluses. She is perfusing well now. We will check her lactate, blood cultures, we will get legionella antigen, Strep pneumo antigen, flu swab her. In addition to this, try to get a sputum culture if possible. I am going to put her on vanco, cefepime. In addition to this, I will also put her on azithromycin and we will continue to follow. I have also checked a urine as well as there could be another source. We will put her on inhaled steroids and nebs around the clock with a flutter valve to help us mobilize secretions. 2. History of diabetes. Lispro sliding scale has been ordered along with her detemir. 3. Atrial fibrillation. Continue her meds as prescribed. Checking an INR. We will continue subcu heparin until her INR is greater than 2. 4. Hypertension. I will continue the meds as prescribed. 5. History of congestive heart failure. She does have a little bit of failure on x-ray. I am checking the BNP. I am not going to diurese her. We would check daily weights. We will follow her if she does become showing worsening signs of shortness of breath, we may consider some diuresis. 6. Chronic kidney failure, stage 3. Her creatinine yesterday was stable. We will check this today and follow. 7. Overactive bladder. Continue her meds as prescribed. 8. DVT prophylaxis. Again, the INR yesterday was 1.2. We will repeat the INR today. Restart her on Coumadin at 6 and continue Coumadin and heparin subcu until the INR is greater than 2. 9. Fluids, electrolytes, and nutrition. She can have a consistent carb diet. 10. Code status. She is a DNR. TIME SPENT: On admission 60 minutes, greater than half the time spent face-to- face with the patient obtaining my history and physical; other half time spent going over the plan of care with the patient and implementing plan of care. I did discuss plan of care with my attending, Dr. Shaffer; she is in agreement. SCOTT BIRCH, GUY [id number]/[facility] #: [id number] EVELINE
[2017-04-15] MEDS: Albuterol/Ipratropium NEB.SOL* Albuterol 2.5 MG/Ipratropium 0.5 MG 3 ML INH SCH ×3 (01:05→08:16)
[2017-04-15] MEDS: Cefepime 2 GM in Dextrose(*) 2 GM/50 ML BAG IV SCH ×2 (04:21→17:14)
[2017-04-15 05:08] LABS: Add Diff/Slide Review? Slide Review Added; Comments Flag Yes; Hematocrit 38 % (35-47); Hemoglobin 12.1 g/dl (12.0-16.0); Mean Corpuscular HGB Conc 32 g/dl (31-36); Mean Corpuscular Hemoglobin 30 pg (27-31); Mean Corpuscular Volume 93 fL (80-97); Mean Platelet Volume 9 um3 (7.4-10.4); Red Blood Count 4.05 10^6/ul (4.0-5.4); Red Cell Distribution Width 14 % (10.5-15); White Blood Count 16.4 10^3/ul (3.5-10.8)
[2017-04-15 05:38] LABS: BUN/Creatinine Ratio 20.9 (8-20); Calcium 8.9 mg/dL (8.6-10.3); EGFR African American 42.6 (>60); EGFR Non-African American 33.1 (>60); Potassium 3.4 mmol/L (3.5-5.0)
[2017-04-15] MEDS: Heparin VIAL(*) 5000 UNITS/ML VIAL (FIVE THOUSAND) SUBCUT SCH ×3 (05:43→21:48)
[2017-04-15] MEDS: Vancomycin(*) 1,000 MG in NS 0.9% 250 ML* 250 ML IVPB SCH ×2 (08:08→21:46)
[2017-04-15] MEDS: Omeprazole CAP* 20 MG PO SCH (08:09)
[2017-04-15] MEDS: Ferrous Sulfate TAB* 325 MG PO SCH (08:09)
[2017-04-15] MEDS: predniSONE TAB* 5 MG PO SCH (08:12)
[2017-04-15] MEDS: Pregabalin CAP(*) 100 MG PO SCH ×2 (08:12→21:48)
[2017-04-15] MEDS: Atorvastatin* 20 MG TAB PO SCH (08:12)
[2017-04-15] MEDS: Insulin GLARGINE(*) 1 UNITS UNIT SUBCUT SCH ×3 (08:14→21:48)
[2017-04-15] MEDS: Insulin LISPRO* 1 UNITS UNIT SUBCUT SCH ×3 (08:15→17:14)
[2017-04-15] MEDS: Polyethylene Glycol 3350* 17 GM PACKET PO SCH (08:15)
[2017-04-15] MEDS: Mometasone/Formoter 200/5 MDI INH SCH ×2 (08:17→21:12)
--- NOTE | 2017-04-15 08:54 | PN ---
Subjective Date of Service: 04/15/17 Interval History: HOSPITALIST PROGRESS NOTE Patient seen and examined at bedside. She feels better today. Still has dyspnea, but less intense than last night. Denies chest pain. Family History: Unchanged from Admission Social History: Unchanged from Admission Past Medical History: Unchanged from Admission Objective Active Medications: Acetaminophen (Tylenol Tab*) 650 mg PO Q4H PRN PRN Reason: FEVER/PAIN Hydrocodone Bitart/Acetaminophen (Tina 5-325 Tab*) 2 tab PO Q4H PRN PRN Reason: PAIN Albuterol (Ventolin 2.5 Mg/3 Ml Neb.Trisha*) 2.5 mg INH Q2H PRN PRN Reason: SOB/WHEEZING Atorvastatin Calcium (Lipitor*) 20 mg PO DAILY [facility] Last Admin: 04/15/17 08:12 Dose: 20 mg Dextrose (D50w Syringe 50 Ml*) 12.5 gm IV PUSH .FOR FS < 60 - SS PRN PRN Reason: FS < 60 Ferrous Sulfate (Ferrous Sulfate Tab*) 325 mg PO DAILY [facility] Last Admin: 04/15/17 08:09 Dose: 325 mg Fesoterodine Fumarate (Toviaz (Nf)) 8 mg PO DAILY [facility] Heparin Sodium (Porcine) (Heparin Vial(*)) 5,000 units SUBCUT Q8HR [facility] Last Admin: 04/15/17 05:43 Dose: 5,000 units Cefepime HCl (Maxipime 2 Gm In Dextrose Duplex (*)) 2 gm in 50 mls @ 100 mls/ hr IV Q12HR@0400,1600 [facility] Last Admin: 04/15/17 04:21 Dose: 100 mls/hr Vancomycin HCl 1,000 mg/ (Sodium Chloride) 250 mls @ 166.667 mls/hr IVPB Q12H [facility] Last Admin: 04/15/17 08:08 Dose: 166.667 mls/hr Azithromycin 500 mg/ Sodium (Chloride) 250 mls @ 250 mls/hr IVPB Q24H [facility] Last Admin: 04/14/17 18:26 Dose: 250 mls/hr Insulin Glargine (Lantus(*)) 17 units SUBCUT BID [facility] Last Admin: 04/15/17 08:14 Dose: 17 units Insulin Human Lispro (Humalog*) 0 units SUBCUT AC [facility] PRN Reason: Protocol Last Admin: 04/15/17 08:15 Dose: 3 unit Melatonin (Melatonin (Nf)) 3 mg PO BEDTIME PRN; Protocol PRN Reason: Sleep Mometasone Furoate/Formoterol Fumar (Dulera 200/5 Mdi*) 2 puff INH BID [facility] Last Admin: 04/15/17 08:17 Dose: 2 puff Omeprazole (Prilosec Cap*) 20 mg PO DAILY [facility] Last Admin: 04/15/17 08:09 Dose: 20 mg Ondansetron HCl (Zofran Inj*) 4 mg IV Q6H PRN PRN Reason: NAUSEA Pharmacy Profile Note (Vancomycin Trough Check) 1 note FOLLOW UP 07 ONE Stop: 04/17/17 07:31 Polyethylene Glycol/Electrolytes (Miralax*) 17 gm PO DAILY [facility] Last Admin: 04/15/17 08:15 Dose: 17 gm Prednisone (Deltasone Tab*) 5 mg PO DAILY [facility] Last Admin: 04/15/17 08:12 Dose: 5 mg Pregabalin (Lyrica Cap(*)) 100 mg PO BID [facility] Last Admin: 04/15/17 08:12 Dose: 100 mg Warfarin Sodium (Coumadin Tab(*)) 6 mg PO DAILY@1700 [facility] PRN Reason: Protocol Last Admin: 04/14/17 17:52 Dose: 6 mg Vital Signs - 8 hr 04/15/17 04/15/17 04/15/17 03:55 04:15 07:21 Temperature 98.7 F 99.6 F Pulse Rate 85 80 Respiratory 18 16 20 Rate Blood Pressure 141/61 121/54 (mmHg) O2 Sat by Pulse 97 98 Oximetry Oxygen Devices in Use Now: Nasal Cannula - 3 liters Appearance: Morbid obese lady lying in bed in NAD. Eyes: No Scleral Icterus Ears/Nose/Mouth/Throat: Mucous Membranes Moist Neck: Trachea Midline Respiratory: Symmetrical Chest Expansion and Respiratory Effort, - - BS+ bilaterally with crackles on the right Cardiovascular: RRR - Normal S1 and S2 Abdominal: NL Sounds; No Tenderness; No Distention Neurological: Alert and Oriented x 3 Result Diagrams: 04/15/17 04:41 04/15/17 04:41 Assess/Plan/Problems-Billing Assessment: Mrs. Munoz is a 76yo F with PMH of morbid obesity, type 2 DM, HTN, diastolic CHF , CKD stage 3, OAB, recent admission for pneumonia, who presents 24h after discharge with c/o dyspnea and fever. - Patient Problems (1) Sepsis Comment: - Patient met sepsis criteria on admission with fever and leukocytosis. - Source is pneumonia. (2) HCAP (healthcare-associated pneumonia) Comment: - Cultures so far show no growth. - Influenza is negative. - Continue Vanco and Cefepime. If no MRSA growing by tomorrow, will d/c Vanco. - Check CT chest. (3) Afib Comment: - Continue Warfarin and monitor INR. (4) CKD (chronic kidney disease) stage 3, GFR 30-59 ml/min Comment: - Renal function remains stable. (5) DVT prophylaxis Comment: - SQ heparin while INR is subtherapeutic. (6) DNR (do not resuscitate) Status and Disposition: Inpatient.
[2017-04-15] MEDS ORDERED: FESOTERODINE 8 MG PO SCH (09:00)
--- NOTE | 2017-04-15 12:50 | RAD ---
INDICATION: Chest x-ray shows pulmonary vascular congestion with right hilar fullness. Suggest follow-up chest x-ray request for CT to exclude hilar mass. COMPARISON: Chest x-ray April 14, 2017 TECHNIQUE: Axial source images were obtained from the thoracic inlet to the hemidiaphragms. Coronal and sagittal reconstructed images were acquired. The visualized neck to include the thyroid appear normal. Chest wall: There are no acute abnormalities of the bony thorax or chest wall. There is no supraclavicular, infraclavicular, or axillary lymphadenopathy. Lungs : There is mild bibasilar airspace disease with air bronchograms. The findings are most likely related atelectasis. The pulmonary interstitium is prominent consistent with interstitial edema with or without chronic interstitial change. There are no endobronchial lesions. Cardiomediastinal structures: The heart is normal in size. There is no pericardial effusion. There is no evidence of aortic aneurysm or dissection. The pulmonary vessels appear normal. There is no mediastinal or hilar adenopathy. There is prominent mediastinal fat. The esophagus appears normal. Pleura : There are no pleural-based masses or effusions. Other: There are no acute or significant CT findings of the visualized upper abdomen. IMPRESSION: AIRSPACE DISEASE CONSISTENT WITH INFILTRATE OR ATELECTASIS. SUSPECT INTERSTITIAL CONGESTION. NO EVIDENCE OF A HILAR MASS
[2017-04-15] MEDS: Oxybutynin XL TAB* 5 MG PO SCH (14:27)
[2017-04-15] MEDS ORDERED: Potassium Chlor TAB* 20 MEQ TAB.ER PO ONE (16:06)
[2017-04-15] MEDS: Warfarin TAB(*) 6 MG PO SCH (17:14)
[2017-04-15] MEDS: Azithromycin IV(*) 500 MG in NS 0.9% 250 ML* 250 ML IVPB SCH (18:15)
[2017-04-16] MEDS: Cefepime 2 GM in Dextrose(*) 2 GM/50 ML BAG IV SCH ×2 (03:42→16:28)
[2017-04-16] MEDS: Heparin VIAL(*) 5000 UNITS/ML VIAL (FIVE THOUSAND) SUBCUT SCH ×3 (05:38→21:26)
[2017-04-16 06:07] LABS: Hematocrit 39 % (35-47); Hemoglobin 12.4 g/dl (12.0-16.0); Mean Corpuscular HGB Conc 32 g/dl (31-36); Mean Corpuscular Hemoglobin 29 pg (27-31); Mean Corpuscular Volume 93 fL (80-97); Mean Platelet Volume 10 um3 (7.4-10.4); Red Cell Distribution Width 14 % (10.5-15); White Blood Count 16.3 10^3/ul (3.5-10.8)
[2017-04-16 06:09] LABS: Add Diff/Slide Review? Slide Review Added; Comments Flag Yes
[2017-04-16 07:30] LABS: BUN/Creatinine Ratio 22.8 (8-20); Calcium 9.2 mg/dL (8.6-10.3); EGFR African American 54.7 (>60); EGFR Non-African American 42.6 (>60); Potassium 3.9 mmol/L (3.5-5.0)
[2017-04-16] MEDS: Polyethylene Glycol 3350* 17 GM PACKET PO SCH (07:37)
[2017-04-16] MEDS: Pregabalin CAP(*) 100 MG PO SCH ×2 (07:37→21:25)
[2017-04-16] MEDS: Atorvastatin* 20 MG TAB PO SCH (07:37)
[2017-04-16] MEDS: Omeprazole CAP* 20 MG PO SCH (07:38)
[2017-04-16] MEDS: Ferrous Sulfate TAB* 325 MG PO SCH (07:38)
[2017-04-16] MEDS: predniSONE TAB* 5 MG PO SCH (07:38)
[2017-04-16] MEDS: Insulin GLARGINE(*) 1 UNITS UNIT SUBCUT SCH ×2 (07:38→21:25)
[2017-04-16] MEDS: Insulin LISPRO* 1 UNITS UNIT SUBCUT SCH ×3 (07:39→17:23)
[2017-04-16] MEDS: Mometasone/Formoter 200/5 MDI INH SCH ×2 (07:54→20:13)
[2017-04-16] MEDS: HYDROcodone/ACETAMIN 5-325 MG* 1 TAB PO PRN (07:55)
[2017-04-16 08:10] LABS: Eosinophils % 6 % (0-6); Immature Granulocytes 3 % (0-9); Myelocytes % 3 % (0-1); Neutrophil % 45 % (38-83); RBC Morphology Normal (Normal); Reactive Lymph % 3 % (0-6)
[2017-04-16] MEDS: Oxybutynin XL TAB* 5 MG PO SCH (14:06)
--- NOTE | 2017-04-16 14:25 | PN ---
Subjective Date of Service: 04/16/17 Interval History: HOSPITALIST PROGRESS NOTE Patient seen and examined at bedside. She feels a little better today, breathing is easier. Cough still present. C/o difficulty swallowing sometimes. Family History: Unchanged from Admission Social History: Unchanged from Admission Past Medical History: Unchanged from Admission Objective Active Medications: Acetaminophen (Tylenol Tab*) 650 mg PO Q4H PRN PRN Reason: FEVER/PAIN Hydrocodone Bitart/Acetaminophen ([place] 5-325 Tab*) 2 tab PO Q4H PRN PRN Reason: PAIN Last Admin: 04/16/17 07:55 Dose: 2 tab Albuterol (Ventolin 2.5 Mg/3 Ml Neb.Trisha*) 2.5 mg INH Q2H PRN PRN Reason: SOB/WHEEZING Atorvastatin Calcium (Lipitor*) 20 mg PO DAILY [facility] Last Admin: 04/16/17 07:37 Dose: 20 mg Dextrose (D50w Syringe 50 Ml*) 12.5 gm IV PUSH .FOR FS < 60 - SS PRN PRN Reason: FS < 60 Ferrous Sulfate (Ferrous Sulfate Tab*) 325 mg PO DAILY [facility] Last Admin: 04/16/17 07:38 Dose: 325 mg Heparin Sodium (Porcine) (Heparin Vial(*)) 5,000 units SUBCUT Q8HR [facility] Last Admin: 04/16/17 14:07 Dose: 5,000 units Heparin Sodium (Porcine) (Heparin Flush Picc/Ml/Cvc(*)) 1 - 3 ml FLUSH 0600, 1800 [facility] PRN Reason: Protocol Last Admin: 04/16/17 05:39 Dose: 1 ml Cefepime HCl (Maxipime 2 Gm In Dextrose Duplex (*)) 2 gm in 50 mls @ 100 mls/ hr IV Q12HR@0400,1600 [facility] Last Admin: 04/16/17 03:42 Dose: 100 mls/hr Azithromycin 500 mg/ Sodium (Chloride) 250 mls @ 250 mls/hr IVPB Q24H [facility] Last Admin: 04/15/17 18:15 Dose: 250 mls/hr Insulin Glargine (Lantus(*)) 20 units SUBCUT BID [facility] Last Admin: 04/16/17 07:38 Dose: 20 units Insulin Human Lispro (Humalog*) 0 units SUBCUT AC [facility] PRN Reason: Protocol Last Admin: 04/16/17 12:13 Dose: 9 unit Melatonin (Melatonin (Nf)) 3 mg PO BEDTIME PRN; Protocol PRN Reason: Sleep Mometasone Furoate/Formoterol Fumar (Dulera 200/5 Mdi*) 2 puff INH BID [facility] Last Admin: 04/16/17 07:54 Dose: 2 puff Omeprazole (Prilosec Cap*) 20 mg PO DAILY [facility] Last Admin: 04/16/17 07:38 Dose: 20 mg Ondansetron HCl (Zofran Inj*) 4 mg IV Q6H PRN PRN Reason: NAUSEA Oxybutynin Chloride (Ditropan Xl Tab*) 10 mg PO DAILY [facility] Last Admin: 04/16/17 14:06 Dose: 10 mg Polyethylene Glycol/Electrolytes (Miralax*) 17 gm PO DAILY [facility] Last Admin: 04/16/17 07:37 Dose: 17 gm Prednisone (Deltasone Tab*) 5 mg PO DAILY [facility] Last Admin: 04/16/17 07:38 Dose: 5 mg Pregabalin (Lyrica Cap(*)) 100 mg PO BID [facility] Last Admin: 04/16/17 07:37 Dose: 100 mg Warfarin Sodium (Coumadin Tab(*)) 6 mg PO DAILY@1700 [facility] PRN Reason: Protocol Last Admin: 04/15/17 17:14 Dose: 6 mg Vital Signs - 8 hr 04/16/17 04/16/17 04/16/17 07:37 07:55 07:56 Temperature Pulse Rate 83 Respiratory 20 20 16 Rate Blood Pressure (mmHg) O2 Sat by Pulse 93 Oximetry 04/16/17 04/16/17 04/16/17 08:00 08:03 10:49 Temperature 99.4 F Pulse Rate 82 Respiratory 20 20 18 Rate Blood Pressure 144/58 (mmHg) O2 Sat by Pulse 96 Oximetry Oxygen Devices in Use Now: Nasal Cannula - 3 liters Appearance: Elderly lady sitting up in a chair in NAD. Eyes: No Scleral Icterus Ears/Nose/Mouth/Throat: Mucous Membranes Moist Neck: Trachea Midline Respiratory: Symmetrical Chest Expansion and Respiratory Effort, - - BS+ bilaterally with bibasilar crackles Cardiovascular: RRR - Normal S1 and S2 Neurological: Alert and Oriented x 3, NL Muscle Strength and Tone Result Diagrams: 04/16/17 05:30 04/16/17 05:30 Assess/Plan/Problems-Billing Assessment: Mrs. Munoz is a 76yo F with PMH of morbid obesity, type 2 DM, HTN, diastolic CHF , CKD stage 3, OAB, recent admission for pneumonia, who presents 24h after discharge with c/o dyspnea and fever. - Patient Problems (1) Sepsis Comment: - Patient met sepsis criteria on admission with fever and leukocytosis. - Source is pneumonia. (2) HCAP (healthcare-associated pneumonia) Comment: - Cultures so far show no growth. - Influenza is negative. - Continue Vanco and Cefepime. If no MRSA growing by tomorrow, will d/c Vanco. - CT chest showed bibasilar air space disease, but no hilar mass. - Suspect a component of aspiration - check Swallow eval. (3) Afib Comment: - Continue Warfarin and monitor INR. (4) CKD (chronic kidney disease) stage 3, GFR 30-59 ml/min Comment: - Renal function remains stable. (5) DVT prophylaxis Comment: - SQ heparin while INR is subtherapeutic. (6) DNR (do not resuscitate) Status and Disposition: Inpatient.
[2017-04-16] MEDS: Warfarin TAB(*) 6 MG PO SCH (16:28)
[2017-04-16] MEDS: Azithromycin IV(*) 500 MG in NS 0.9% 250 ML* 250 ML IVPB SCH (17:23)
[2017-04-17] MEDS: Cefepime 2 GM in Dextrose(*) 2 GM/50 ML BAG IV SCH ×2 (03:47→17:11)
[2017-04-17] MEDS: Heparin VIAL(*) 5000 UNITS/ML VIAL (FIVE THOUSAND) SUBCUT SCH ×2 (05:43→14:26)
[2017-04-17] MEDS ORDERED: Furosemide IV* 10 MG/ML 2 ML VIAL (20 MG) IV ONE (06:15)
[2017-04-17 06:50] LABS: Hematocrit 39 % (35-47); Hemoglobin 12.6 g/dl (12.0-16.0); Mean Corpuscular HGB Conc 32 g/dl (31-36); Mean Corpuscular Hemoglobin 30 pg (27-31); Mean Corpuscular Volume 92 fL (80-97); Mean Platelet Volume 9 um3 (7.4-10.4); Red Blood Count 4.26 10^6/ul (4.0-5.4); Red Cell Distribution Width 14 % (10.5-15); White Blood Count 18.3 10^3/ul (3.5-10.8)
[2017-04-17 07:10] LABS: Add Diff/Slide Review? Manual Diff Added; Comments Flag Yes
[2017-04-17 07:10] LABS: BUN/Creatinine Ratio 22.5 (8-20); Calcium 9.6 mg/dL (8.6-10.3); EGFR African American 56.3 (>60); EGFR Non-African American 43.8 (>60); Potassium 3.4 mmol/L (3.5-5.0)
[2017-04-17] MEDS: HYDROcodone/ACETAMIN 5-325 MG* 1 TAB PO PRN ×2 (07:18→21:42)
[2017-04-17] MEDS: Mometasone/Formoter 200/5 MDI INH SCH ×2 (07:23→20:26)
[2017-04-17] MEDS ORDERED: Vancomycin Trough Check NOTE FOLLOW UP ONE (07:30)
[2017-04-17 07:43] LABS: Add Path Review? YES; Immature Granulocytes 1 % (0-9); Myelocytes % 1 % (0-1); Neutrophil % 66 % (38-83)
[2017-04-17 07:44] LABS: RBC Morphology Normal (Normal)
--- NOTE | 2017-04-17 08:20 | RAD ---
INDICATION: Pulmonary edema COMPARISON: Chest x-ray April 14, 2011 TECHNIQUE: An AP portable view obtained at 0752 hours is submitted. FINDINGS: Bones/Soft Tissues: There are no acute bony findings. Cardiomediastinal: The correct silhouette is unchanged. The examination is mildly rotated. Small left-sided effusion there is interstitial edema Lungs: Left basilar infiltrate. Pleura: There are no pleural effusions. Other: None IMPRESSION: LEFT BASE INFILTRATE WITH INTERSTITIAL EDEMA. NO ACUTE FINDINGS.
[2017-04-17] MEDS: Insulin LISPRO* 1 UNITS UNIT SUBCUT SCH ×3 (08:34→17:55)
[2017-04-17] MEDS: Insulin GLARGINE(*) 1 UNITS UNIT SUBCUT SCH ×2 (08:34→20:54)
[2017-04-17] MEDS: Ferrous Sulfate TAB* 325 MG PO SCH (08:35)
[2017-04-17] MEDS: Oxybutynin XL TAB* 5 MG PO SCH (08:35)
[2017-04-17] MEDS: Atorvastatin* 20 MG TAB PO SCH (08:35)
[2017-04-17] MEDS: Omeprazole CAP* 20 MG PO SCH (08:35)
[2017-04-17] MEDS: predniSONE TAB* 5 MG PO SCH (08:36)
[2017-04-17] MEDS: Pregabalin CAP(*) 100 MG PO SCH ×2 (08:36→20:55)
[2017-04-17] MEDS: Polyethylene Glycol 3350* 17 GM PACKET PO SCH (08:38)
[2017-04-17] MEDS ORDERED: Potassium Chlor TAB* 20 MEQ TAB.ER PO ONE (08:56)
[2017-04-17] MEDS ORDERED: Furosemide IV* 10 MG/ML 2 ML VIAL (20 MG) IV SLOW PU ONE (08:56)
--- NOTE | 2017-04-17 15:22 | PN ---
Subjective Date of Service: 04/17/17 Interval History: HOSPITALIST PROGRESS NOTE Patient seen and examined at bedside. She had more dyspnea overnight, improved with diuretics. Family History: Unchanged from Admission Social History: Unchanged from Admission Past Medical History: Unchanged from Admission Objective Active Medications: Acetaminophen (Tylenol Tab*) 650 mg PO Q4H PRN PRN Reason: FEVER/PAIN Hydrocodone Bitart/Acetaminophen ([place] 5-325 Tab*) 2 tab PO Q4H PRN PRN Reason: PAIN Last Admin: 04/17/17 07:18 Dose: 2 tab Albuterol (Ventolin 2.5 Mg/3 Ml Neb.Trisha*) 2.5 mg INH Q2H PRN PRN Reason: SOB/WHEEZING Atorvastatin Calcium (Lipitor*) 20 mg PO DAILY [facility] Last Admin: 04/17/17 08:35 Dose: 20 mg Dextrose (D50w Syringe 50 Ml*) 12.5 gm IV PUSH .FOR FS < 60 - SS PRN PRN Reason: FS < 60 Ferrous Sulfate (Ferrous Sulfate Tab*) 325 mg PO DAILY [facility] Last Admin: 04/17/17 08:35 Dose: 325 mg Heparin Sodium (Porcine) (Heparin Vial(*)) 5,000 units SUBCUT Q8HR [facility] Last Admin: 04/17/17 14:26 Dose: 5,000 units Heparin Sodium (Porcine) (Heparin Flush Picc/Ml/Cvc(*)) 1 - 3 ml FLUSH 0600, 1800 [facility] PRN Reason: Protocol Last Admin: 04/17/17 05:43 Dose: 1 ml Cefepime HCl (Maxipime 2 Gm In Dextrose Duplex (*)) 2 gm in 50 mls @ 100 mls/ hr IV Q12HR@0400,1600 [facility] Last Admin: 04/17/17 03:47 Dose: 100 mls/hr Azithromycin 500 mg/ Sodium (Chloride) 250 mls @ 250 mls/hr IVPB Q24H [facility] Last Admin: 04/16/17 17:23 Dose: 250 mls/hr Insulin Glargine (Lantus(*)) 20 units SUBCUT BID [facility] Last Admin: 04/17/17 08:34 Dose: 20 units Insulin Human Lispro (Humalog*) 0 units SUBCUT AC [facility] PRN Reason: Protocol Last Admin: 04/17/17 12:40 Dose: 6 unit Melatonin (Melatonin (Nf)) 3 mg PO BEDTIME PRN; Protocol PRN Reason: Sleep Mometasone Furoate/Formoterol Fumar (Dulera 200/5 Mdi*) 2 puff INH BID [facility] Last Admin: 04/17/17 07:23 Dose: 2 puff Omeprazole (Prilosec Cap*) 20 mg PO DAILY [facility] Last Admin: 04/17/17 08:35 Dose: 20 mg Ondansetron HCl (Zofran Inj*) 4 mg IV Q6H PRN PRN Reason: NAUSEA Oxybutynin Chloride (Ditropan Xl Tab*) 10 mg PO DAILY [facility] Last Admin: 04/17/17 08:35 Dose: 10 mg Polyethylene Glycol/Electrolytes (Miralax*) 17 gm PO DAILY [facility] Last Admin: 04/17/17 08:38 Dose: Not Given Prednisone (Deltasone Tab*) 5 mg PO DAILY [facility] Last Admin: 04/17/17 08:36 Dose: 5 mg Pregabalin (Lyrica Cap(*)) 100 mg PO BID [facility] Last Admin: 04/17/17 08:36 Dose: 100 mg Warfarin Sodium (Coumadin Tab(*)) 6 mg PO DAILY@1700 [facility] PRN Reason: Protocol Last Admin: 04/16/17 16:28 Dose: 6 mg Vital Signs - 8 hr 04/17/17 04/17/17 04/17/17 08:36 11:09 13:02 Temperature 98.4 F Pulse Rate 74 Respiratory 16 20 15 Rate Blood Pressure 120/43 (mmHg) O2 Sat by Pulse 96 Oximetry Oxygen Devices in Use Now: Nasal Cannula - 3 liters Appearance: Pleasant elderly lady sitting up in a recliner in [facility]. Eyes: No Scleral Icterus Ears/Nose/Mouth/Throat: Mucous Membranes Moist Neck: Trachea Midline Respiratory: Symmetrical Chest Expansion and Respiratory Effort, - - BS+ bilaterally with bibasilar crackles Cardiovascular: RRR - Normal S1 and S2 Extremities: - - Bilateral LE are WILLIE wrapped Neurological: Alert and Oriented x 3, NL Muscle Strength and Tone Result Diagrams: 04/17/17 06:36 04/17/17 06:37 Assess/Plan/Problems-Billing Assessment: Mrs. Munoz is a 76yo F with PMH of morbid obesity, type 2 DM, HTN, diastolic CHF , CKD stage 3, OAB, recent admission for pneumonia, who presents 24h after discharge with c/o dyspnea and fever. - Patient Problems (1) Sepsis Comment: - Patient met sepsis criteria on admission with fever and leukocytosis. - Source is pneumonia. (2) HCAP (healthcare-associated pneumonia) Comment: - Cultures so far show no growth. - Influenza is negative. - One blood culture grew Staph epidermidis suggestive of contamination - d/c Vanco and continue Cefepime. - CT chest showed bibasilar air space disease, but no hilar mass. - Did well during her Swallow eval but had complaints at a lower position - will check esophagogram. (3) CHF (congestive heart failure) Comment: - Continue diuresis and check echocardiogram. - Daily weights have not been consistent. (4) Afib Comment: - INR is therapeutic - continue Warfarin. (5) CKD (chronic kidney disease) stage 3, GFR 30-59 ml/min Comment: - Renal function remains stable. (6) DVT prophylaxis Comment: - Warfarin. (7) DNR (do not resuscitate) Status and Disposition: Inpatient.
[2017-04-17] MEDS: Azithromycin IV(*) 500 MG in NS 0.9% 250 ML* 250 ML IVPB SCH (17:47)
[2017-04-17] MEDS: Warfarin TAB(*) 6 MG PO SCH (17:55)
[2017-04-18] MEDS: Cefepime 2 GM in Dextrose(*) 2 GM/50 ML BAG IV SCH ×2 (03:54→16:58)
[2017-04-18] MEDS: Mometasone/Formoter 200/5 MDI INH SCH ×2 (09:03→19:33)
[2017-04-18] MEDS: Insulin LISPRO* 1 UNITS UNIT SUBCUT SCH ×3 (09:18→17:51)
[2017-04-18] MEDS: Omeprazole CAP* 20 MG PO SCH (09:19)
[2017-04-18] MEDS: Oxybutynin XL TAB* 5 MG PO SCH (09:19)
[2017-04-18] MEDS: Pregabalin CAP(*) 100 MG PO SCH ×2 (09:19→20:56)
[2017-04-18] MEDS: Atorvastatin* 20 MG TAB PO SCH (09:19)
[2017-04-18] MEDS: predniSONE TAB* 5 MG PO SCH (09:19)
[2017-04-18] MEDS: Insulin GLARGINE(*) 1 UNITS UNIT SUBCUT SCH ×2 (09:19→20:48)
[2017-04-18] MEDS: Ferrous Sulfate TAB* 325 MG PO SCH (09:19)
[2017-04-18] MEDS: Polyethylene Glycol 3350* 17 GM PACKET PO SCH (09:24)
[2017-04-18 09:48] LABS: BUN/Creatinine Ratio 24.8 (8-20); EGFR African American 60.4 (>60); EGFR Non-African American 46.9 (>60); Potassium 3.9 mmol/L (3.5-5.0)
[2017-04-18] MEDS: HYDROcodone/ACETAMIN 5-325 MG* 1 TAB PO PRN ×2 (10:21→21:28)
--- NOTE | 2017-04-18 15:51 | RAD ---
INDICATION: Dysphasia COMPARISON: None TECHNIQUE: Barium was administered per os and digital fluoroscopy of the esophagus was performed. 42 seconds of fluoroscopy was utilized. This is a limited examination. The examination was performed with the patient in a wheelchair. Esophagus: Esophagus appears mildly ectatic and there is discoordinated peristaltic contractions but the esophagus did empty adequately in the upright position. No mucosal irregularities or fixed stricture is identified The GE junction appears normally positioned IMPRESSION: A LIMITED ESOPHAGRAM SHOWS TERTIARY PERISTALTIC CONTRACTIONS. CPT II Codes: 6045F PQRS (Fluoro time doc)
[2017-04-18] MEDS ORDERED: Furosemide IV* 10 MG/ML 2 ML VIAL (20 MG) IV SLOW PU ONE (16:18)
--- NOTE | 2017-04-18 16:19 | PN ---
Subjective Date of Service: 04/18/17 Interval History: HOSPITALIST PROGRESS NOTE Patient seen and examined at bedside. She's sleeping, but arousable to voice. Very tired today. Family History: Unchanged from Admission Social History: Unchanged from Admission Past Medical History: Unchanged from Admission Objective Active Medications: Acetaminophen (Tylenol Tab*) 650 mg PO Q4H PRN PRN Reason: FEVER/PAIN Hydrocodone Bitart/Acetaminophen ([place] 5-325 Tab*) 2 tab PO Q4H PRN PRN Reason: PAIN Last Admin: 04/18/17 10:21 Dose: 2 tab Albuterol (Ventolin 2.5 Mg/3 Ml Neb.Trisha*) 2.5 mg INH Q2H PRN PRN Reason: SOB/WHEEZING Last Admin: 04/17/17 20:25 Dose: 2.5 mg Atorvastatin Calcium (Lipitor*) 20 mg PO DAILY [facility] Last Admin: 04/18/17 09:19 Dose: 20 mg Dextrose (D50w Syringe 50 Ml*) 12.5 gm IV PUSH .FOR FS < 60 - SS PRN PRN Reason: FS < 60 Ferrous Sulfate (Ferrous Sulfate Tab*) 325 mg PO DAILY [facility] Last Admin: 04/18/17 09:19 Dose: 325 mg Heparin Sodium (Porcine) (Heparin Flush Picc/Ml/Cvc(*)) 1 - 3 ml FLUSH 0600, 1800 [facility] PRN Reason: Protocol Last Admin: 04/18/17 05:04 Dose: 1 ml Cefepime HCl (Maxipime 2 Gm In Dextrose Duplex (*)) 2 gm in 50 mls @ 100 mls/ hr IV Q12HR@0400,1600 [facility] Last Admin: 04/18/17 03:54 Dose: 100 mls/hr Azithromycin 500 mg/ Sodium (Chloride) 250 mls @ 250 mls/hr IVPB Q24H [facility] Last Admin: 04/17/17 17:47 Dose: 250 mls/hr Insulin Glargine (Lantus(*)) 20 units SUBCUT BID [facility] Last Admin: 04/18/17 09:19 Dose: 20 units Insulin Human Lispro (Humalog*) 0 units SUBCUT AC [facility] PRN Reason: Protocol Last Admin: 04/18/17 13:41 Dose: 9 unit Melatonin (Melatonin (Nf)) 3 mg PO BEDTIME PRN; Protocol PRN Reason: Sleep Mometasone Furoate/Formoterol Fumar (Dulera 200/5 Mdi*) 2 puff INH BID [facility] Last Admin: 04/18/17 09:03 Dose: 2 puff Omeprazole (Prilosec Cap*) 20 mg PO DAILY [facility] Last Admin: 04/18/17 09:19 Dose: 20 mg Ondansetron HCl (Zofran Inj*) 4 mg IV Q6H PRN PRN Reason: NAUSEA Oxybutynin Chloride (Ditropan Xl Tab*) 10 mg PO DAILY [facility] Last Admin: 04/18/17 09:19 Dose: 10 mg Prednisone (Deltasone Tab*) 5 mg PO DAILY [facility] Last Admin: 04/18/17 09:19 Dose: 5 mg Pregabalin (Lyrica Cap(*)) 100 mg PO BID [facility] Last Admin: 04/18/17 09:19 Dose: 100 mg Senna (Senokot Tab*) 2 tab PO BEDTIME [facility] Warfarin Sodium (Coumadin Tab(*)) 6 mg PO DAILY@1700 [facility] PRN Reason: Protocol Last Admin: 04/17/17 17:55 Dose: 6 mg Vital Signs - 8 hr 04/18/17 15:10 Temperature 97.6 F Pulse Rate 71 Respiratory 17 Rate Blood Pressure 134/52 (mmHg) O2 Sat by Pulse 97 Oximetry Oxygen Devices in Use Now: Nasal Cannula - 3 liters Appearance: Elderly obese lady lying in recliner in NAD. Eyes: No Scleral Icterus Ears/Nose/Mouth/Throat: Mucous Membranes Moist Neck: Trachea Midline Respiratory: Symmetrical Chest Expansion and Respiratory Effort, - - BS+ bilaterally with bibasilar rales Cardiovascular: RRR - Normal S1 and S2 Extremities: - - WILLIE wrapped bilateral LE Neurological: - - Sleeping, arousable to voice Result Diagrams: 04/17/17 06:36 04/18/17 08:50 Assess/Plan/Problems-Billing Assessment: Mrs. Munoz is a 76yo F with PMH of morbid obesity, type 2 DM, HTN, diastolic CHF , CKD stage 3, OAB, recent admission for pneumonia, who presents 24h after discharge with c/o dyspnea and fever. - Patient Problems (1) Sepsis Comment: - Patient met sepsis criteria on admission with fever and leukocytosis. - Source is pneumonia. (2) HCAP (healthcare-associated pneumonia) Comment: - Cultures so far show no growth. - Influenza is negative. - One blood culture grew Staph epidermidis suggestive of contamination - d/c Vanco and continue Cefepime. - CT chest showed bibasilar air space disease, but no hilar mass. - Did well during her Swallow eval but had complaints at a lower position - awaiting esophagogram. (3) CHF (congestive heart failure) Comment: - Continue diuresis and awaiting echocardiogram. - Daily weights have not been consistent. (4) Afib Comment: - INR is therapeutic - continue Warfarin. (5) CKD (chronic kidney disease) stage 3, GFR 30-59 ml/min Comment: - Renal function remains stable. (6) DVT prophylaxis Comment: - Warfarin. (7) DNR (do not resuscitate) Status and Disposition: Inpatient.
[2017-04-18] MEDS: Warfarin TAB(*) 6 MG PO SCH (16:58)
[2017-04-18] MEDS: Azithromycin IV(*) 500 MG in NS 0.9% 250 ML* 250 ML IVPB SCH (17:51)
[2017-04-18] MEDS: Senna TAB PO SCH (20:58)
[2017-04-19] MEDS: HYDROcodone/ACETAMIN 5-325 MG* 1 TAB PO PRN ×2 (02:32→13:36)
[2017-04-19] MEDS: Cefepime 2 GM in Dextrose(*) 2 GM/50 ML BAG IV SCH ×2 (04:54→16:23)
[2017-04-19 05:43] LABS: Hematocrit 39 % (35-47); Hemoglobin 12.6 g/dl (12.0-16.0); Mean Corpuscular HGB Conc 32 g/dl (31-36); Mean Corpuscular Hemoglobin 30 pg (27-31); Mean Corpuscular Volume 93 fL (80-97); Mean Platelet Volume 9 um3 (7.4-10.4); Red Blood Count 4.21 10^6/ul (4.0-5.4); Red Cell Distribution Width 14 % (10.5-15); White Blood Count 14.5 10^3/ul (3.5-10.8)
[2017-04-19 05:45] LABS: Comments Flag Yes
[2017-04-19 06:02] LABS: BUN/Creatinine Ratio 25.9 (8-20); Calcium 9.4 mg/dL (8.6-10.3); EGFR African American 63.6 (>60); EGFR Non-African American 49.5 (>60); Potassium 3.2 mmol/L (3.5-5.0)
[2017-04-19] MEDS: Mometasone/Formoter 200/5 MDI INH SCH ×2 (07:28→19:11)
[2017-04-19] MEDS: Atorvastatin* 20 MG TAB PO SCH (07:55)
[2017-04-19] MEDS: Insulin LISPRO* 1 UNITS UNIT SUBCUT SCH ×3 (07:55→18:16)
[2017-04-19] MEDS: Insulin GLARGINE(*) 1 UNITS UNIT SUBCUT SCH ×2 (07:55→21:20)
[2017-04-19] MEDS: predniSONE TAB* 5 MG PO SCH (07:56)
[2017-04-19] MEDS: Ferrous Sulfate TAB* 325 MG PO SCH (07:56)
[2017-04-19] MEDS: Oxybutynin XL TAB* 5 MG PO SCH (07:56)
[2017-04-19] MEDS: Pregabalin CAP(*) 100 MG PO SCH ×2 (07:56→21:22)
[2017-04-19] MEDS: Omeprazole CAP* 20 MG PO SCH (07:56)
--- NOTE | 2017-04-19 09:51 | PN ---
Subjective Date of Service: 04/19/17 Interval History: HOSPITALIST PROGRESS NOTE Patient seen and examined at bedside. Sleeping in her recliner, arousable, seems to be very tired, offers no complaints. Family History: Unchanged from Admission Social History: Unchanged from Admission Past Medical History: Unchanged from Admission Objective Active Medications: Acetaminophen (Tylenol Tab*) 650 mg PO Q4H PRN PRN Reason: FEVER/PAIN Hydrocodone Bitart/Acetaminophen ([place] 5-325 Tab*) 2 tab PO Q4H PRN PRN Reason: PAIN Last Admin: 04/19/17 02:32 Dose: 2 tab Albuterol (Ventolin 2.5 Mg/3 Ml Neb.Trisha*) 2.5 mg INH Q2H PRN PRN Reason: SOB/WHEEZING Last Admin: 04/17/17 20:25 Dose: 2.5 mg Atorvastatin Calcium (Lipitor*) 20 mg PO DAILY [facility] Last Admin: 04/19/17 07:55 Dose: 20 mg Dextrose (D50w Syringe 50 Ml*) 12.5 gm IV PUSH .FOR FS < 60 - SS PRN PRN Reason: FS < 60 Ferrous Sulfate (Ferrous Sulfate Tab*) 325 mg PO DAILY [facility] Last Admin: 04/19/17 07:56 Dose: 325 mg Heparin Sodium (Porcine) (Heparin Flush Picc/Ml/Cvc(*)) 1 - 3 ml FLUSH 0600, 1800 [facility] PRN Reason: Protocol Last Admin: 04/19/17 06:57 Dose: 1 ml Cefepime HCl (Maxipime 2 Gm In Dextrose Duplex (*)) 2 gm in 50 mls @ 100 mls/ hr IV Q12HR@0400,1600 [facility] Last Admin: 04/19/17 04:54 Dose: 100 mls/hr Azithromycin 500 mg/ Sodium (Chloride) 250 mls @ 250 mls/hr IVPB Q24H [facility] Last Admin: 04/18/17 17:51 Dose: 250 mls/hr Insulin Glargine (Lantus(*)) 20 units SUBCUT BID [facility] Last Admin: 04/19/17 07:55 Dose: 20 units Insulin Human Lispro (Humalog*) 0 units SUBCUT AC [facility] PRN Reason: Protocol Last Admin: 04/19/17 07:55 Dose: 3 unit Melatonin (Melatonin (Nf)) 3 mg PO BEDTIME PRN; Protocol PRN Reason: Sleep Mometasone Furoate/Formoterol Fumar (Dulera 200/5 Mdi*) 2 puff INH BID [facility] Last Admin: 04/19/17 07:28 Dose: 2 puff Omeprazole (Prilosec Cap*) 20 mg PO DAILY [facility] Last Admin: 04/19/17 07:56 Dose: 20 mg Ondansetron HCl (Zofran Inj*) 4 mg IV Q6H PRN PRN Reason: NAUSEA Oxybutynin Chloride (Ditropan Xl Tab*) 10 mg PO DAILY [facility] Last Admin: 04/19/17 07:56 Dose: 10 mg Prednisone (Deltasone Tab*) 5 mg PO DAILY [facility] Last Admin: 04/19/17 07:56 Dose: 5 mg Pregabalin (Lyrica Cap(*)) 100 mg PO BID [facility] Last Admin: 04/19/17 07:56 Dose: 100 mg Senna (Senokot Tab*) 2 tab PO BEDTIME [facility] Last Admin: 04/18/17 20:58 Dose: 2 tab Vital Signs - 8 hr 04/19/17 04/19/17 04/19/17 04:32 07:26 07:56 Temperature 98.3 F Pulse Rate 72 Respiratory 16 16 16 Rate Blood Pressure 127/56 (mmHg) O2 Sat by Pulse 96 Oximetry Oxygen Devices in Use Now: Nasal Cannula Appearance: Elderly obese lady sitting up in a recliner in [facility]. Eyes: No Scleral Icterus Ears/Nose/Mouth/Throat: Mucous Membranes Moist Neck: Trachea Midline Respiratory: Symmetrical Chest Expansion and Respiratory Effort, - - BS+ bilaterally decreased in both bases Cardiovascular: RRR - Normal S1 and S2 Abdominal: NL Sounds; No Tenderness; No Distention - obese Extremities: - - WILLIE wrapped Neurological: - - Sleeping, arousable to voice Result Diagrams: 04/19/17 05:26 04/19/17 05:26 Assess/Plan/Problems-Billing Assessment: Mrs. Munoz is a 76yo F with PMH of morbid obesity, type 2 DM, HTN, diastolic CHF , CKD stage 3, OAB, recent admission for pneumonia, who presents 24h after discharge with c/o dyspnea and fever. - Patient Problems (1) Sepsis Comment: - Patient met sepsis criteria on admission with fever and leukocytosis. - Source is pneumonia. (2) HCAP (healthcare-associated pneumonia) Comment: - Cultures so far show no growth. - Influenza is negative. - One blood culture grew Staph epidermidis suggestive of contamination - d/c Vanco and continue Cefepime #4. - CT chest showed bibasilar air space disease, but no hilar mass. - Did well during her Swallow eval and esophagogram showed tertiary peristaltic contractions. (3) CHF (congestive heart failure) Comment: - Developing contraction alkalosis although she still has some signs of fluid overload - hold off on further diuresis for now. - Awaiting echocardiogram - called tech - it will be done today. - Daily weights have not been consistent. (4) Afib Comment: - INR is supratherapeutic today - hold Warfarin. (5) CKD (chronic kidney disease) stage 3, GFR 30-59 ml/min Comment: - Renal function remains stable. (6) DVT prophylaxis Comment: - Warfarin. (7) DNR (do not resuscitate) Status and Disposition: Inpatient.
[2017-04-19] MEDS: Analgesic BALM* 114 GM TOPICAL SCH ×2 (14:37→21:26)
[2017-04-19] MEDS ORDERED: Perflutren Lipid Microsphere* 3 ML VIAL ONE (15:50)
--- NOTE | 2017-04-19 16:51 | ECHO ---
Patient: DORETHA VALERIO [facility] Rec#: [id number] : 1940 Date: 04/19/2017 Age: 76y Height: 162.56 cm / 64.0 in Weight: 124.28 kg / 273.9 lbs Sex: F BSA: 2.24 Room#: 433 Admit Date#: 04/14/2017 Type: Inpatient Referring: Beverly Mathew MD Reading: Conner Villatoro MD Business Records Manager: Iman Mendiola [facility] Transthoracic Echocardiogram Indication: CHF BP: 127/56 HR: 81 Rhythm: NSR Findings History: DM,a-fib in the past,HTN,CKD,CHF. Technical Comments: The study is technically limited due to patient body habitus. Completed at 1640. The study was technically limited due to the patient's inability to lay in the left lateral decubitus position. Study done with patient OOB in cardiac chair. Definity used to enhance images. Left Ventricle: The left ventricular chamber size is normal. Global left ventricular wall motion and contractility are within normal limits. There is normal left ventricular systolic function. The estimated ejection fraction is greater than 65%. The assessment of diastolic function is non-diagnostic. The patient was unable to perform a Valsalva maneuver. Left Atrium: The left atrial chamber size is normal. Right Ventricle: The right ventricle is not well visualized. The right ventricle wall thickness is moderately increased.8 mm. The right ventricular global systolic function is normal. Right Atrium: The right atrium is not well visualized. Aortic Valve: The aortic valve structure is not well visualized. Mitral Valve: The mitral valve leaflets appear normal. There is no evidence of mitral regurgitation. There is no evidence of mitral stenosis. Tricuspid Valve: The tricuspid valve structure is not well visualized. Pulmonic Valve: The pulmonic valve appears normal. There is no evidence of pulmonic regurgitation. There is no pulmonic stenosis. Pericardium: A pericardial fat pad is visualized. Aorta: The ascending aorta is not well visualized. There is no dilatation of the aortic arch. There is no dilation of the aortic root. Pulmonary Artery: The main pulmonary artery appears normal. Venous: The venous system is not well visualized. Contrast: Definity was used to optimize study. Intravenous contrast was used to enhance endocardial border definition. Conclusions The study was technically suboptimal due to the patient's inability to lay in the left lateral decubitus position. Study done with patient OOB in cardiac chair. Global left ventricular wall motion and contractility are within normal limits. The estimated ejection fraction is greater than 65%. The right ventricle wall thickness is moderately increased.8 mm. The right ventricular global systolic function is normal. No significant valve issues. Similar to 2015 except that the RV function has improved and TR was not seen this time. Measurements Name Value Normal Range RVIDd (AP) 2D 1.8 cm (0.9 - 2.6) IVSd (2D) 1 cm (0.6 - 1) LVPWd (2D) 1 cm (0.6 - 1) LVIDd (2D) 3.8 cm (3.6 - 5.4) LVIDs (2D) 2.4 cm - LV FS (2D) 37 % (25 - 45) Aortic Annulus 1.8 cm (1.4 - 2.6) Ao root diameter (2D) 3.1 cm (2.1 - 3.5) Aortic arch 2.4 cm (1.8 - 3.4) Descending Ao 0.5 cm - LA dimension (AP) 2D 3.1 cm (2.3 - 3.8) Name Value Normal Range MV E-wave Vmax 0.8 m/sec - MV deceleration time 176 msec - MV A-wave Vmax 0.8 m/sec - MV E:A ratio 0.93 ratio - LV septal e' Vmax 0.11 m/sec - LV lateral e' Vmax 0.07 m/sec - LV E:e' septal ratio 7.27 ratio - LV E:e' lateral ratio 11.42 ratio - Name Value Normal Range AV Vmax 1.6 m/sec - AV VTI 30.2 cm - AV peak gradient 10.29 mmHg - AV mean gradient 5.81 mmHg - LVOT Vmax 1.2 m/sec - LVOT VTI 25.6 cm - LVOT peak gradient 5.43 mmHg - LVOT mean gradient 2.5 mmHg - Name Value Normal Range PV Vmax 0.9 m/sec - PV peak gradient 3.42 mmHg -
[2017-04-19] MEDS: Azithromycin IV(*) 500 MG in NS 0.9% 250 ML* 250 ML IVPB SCH (18:18)
[2017-04-19] MEDS: Senna TAB PO SCH (21:23)
[2017-04-20] MEDS: Cefepime 2 GM in Dextrose(*) 2 GM/50 ML BAG IV SCH ×2 (04:20→15:53)
[2017-04-20 06:56] LABS: BUN/Creatinine Ratio 26.5 (8-20); Calcium 9.5 mg/dL (8.6-10.3); EGFR African American 71.2 (>60); EGFR Non-African American 55.3 (>60); Potassium 3.3 mmol/L (3.5-5.0)
[2017-04-20] MEDS: Mometasone/Formoter 200/5 MDI INH SCH ×2 (07:44→19:13)
[2017-04-20] MEDS: Analgesic BALM* 114 GM TOPICAL SCH ×3 (07:44→20:52)
[2017-04-20] MEDS: Insulin LISPRO* 1 UNITS UNIT SUBCUT SCH ×3 (09:09→17:55)
[2017-04-20] MEDS: Ferrous Sulfate TAB* 325 MG PO SCH (09:20)
[2017-04-20] MEDS: Pregabalin CAP(*) 100 MG PO SCH ×2 (09:20→20:51)
[2017-04-20] MEDS: Omeprazole CAP* 20 MG PO SCH (09:20)
[2017-04-20] MEDS: Oxybutynin XL TAB* 5 MG PO SCH (09:22)
[2017-04-20] MEDS: Atorvastatin* 20 MG TAB PO SCH (09:22)
[2017-04-20] MEDS: Insulin GLARGINE(*) 1 UNITS UNIT SUBCUT SCH ×2 (09:22→20:50)
[2017-04-20] MEDS: predniSONE TAB* 5 MG PO SCH (09:22)
--- NOTE | 2017-04-20 11:14 | RAD ---
INDICATION: Short of breath COMPARISON: Chest x-ray April 17, 2017 TECHNIQUE: An AP portable view obtained at 1100 hours is submitted. FINDINGS: Bones/Soft Tissues: There are no acute bony findings. Cardiomediastinal: The correct silhouette, central pulmonary vessels and interstitium are prominent compatible with interstitial congestion. Lungs: Mild basilar airspace disease left greater than right unchanged. This could reflect infiltrate, atelectasis, pleural fluid, or combination of the three. Pleura: Small bilateral pleural effusions. Other: None IMPRESSION: MODERATE VASCULAR CONGESTION WITH BASILAR AIRSPACE DISEASE.
[2017-04-20 14:15] LABS: FIO2 2; PCO2 Arterial 69 mmHg (35-45)
--- NOTE | 2017-04-20 16:33 | PN ---
Subjective Date of Service: 04/20/17 Interval History: . Many interactions with patient today Repeat CXR --> still some pulmonary edema. got lasix... ABG --> CO2 retention (pH normal, so, compensated.) . Family History: Unchanged from Admission Social History: Unchanged from Admission Past Medical History: Unchanged from Admission Objective Active Medications: . Acetaminophen (Tylenol Tab*) 650 mg PO Q4H PRN PRN Reason: FEVER/PAIN Hydrocodone Bitart/Acetaminophen ([place] 5-325 Tab*) 2 tab PO Q4H PRN PRN Reason: PAIN Last Admin: 04/19/17 13:36 Dose: 2 tab Albuterol (Ventolin 2.5 Mg/3 Ml Neb.Trisha*) 2.5 mg INH Q2H PRN PRN Reason: SOB/WHEEZING Last Admin: 04/17/17 20:25 Dose: 2.5 mg Atorvastatin Calcium (Lipitor*) 20 mg PO DAILY [facility] Last Admin: 04/20/17 09:22 Dose: 20 mg Dextrose (D50w Syringe 50 Ml*) 12.5 gm IV PUSH .FOR FS < 60 - SS PRN PRN Reason: FS < 60 Ferrous Sulfate (Ferrous Sulfate Tab*) 325 mg PO DAILY [facility] Last Admin: 04/20/17 09:20 Dose: 325 mg Heparin Sodium (Porcine) (Heparin Flush Picc/Ml/Cvc(*)) 1 - 3 ml FLUSH 0600, 1800 [facility] PRN Reason: Protocol Last Admin: 04/20/17 05:30 Dose: 1 ml Cefepime HCl (Maxipime 2 Gm In Dextrose Duplex (*)) 2 gm in 50 mls @ 100 mls/ hr IV Q12HR@0400,1600 [facility] Last Admin: 04/20/17 15:53 Dose: 100 mls/hr Azithromycin 500 mg/ Sodium (Chloride) 250 mls @ 250 mls/hr IVPB Q24H [facility] Last Admin: 04/19/17 18:18 Dose: 250 mls/hr Insulin Glargine (Lantus(*)) 20 units SUBCUT BID [facility] Last Admin: 04/20/17 09:22 Dose: 20 units Insulin Human Lispro (Humalog*) 0 units SUBCUT AC [facility] PRN Reason: Protocol Last Admin: 04/20/17 14:15 Dose: 2 unit Melatonin (Melatonin (Nf)) 3 mg PO BEDTIME PRN; Protocol PRN Reason: Sleep Mometasone Furoate/Formoterol Fumar (Dulera 200/5 Mdi*) 2 puff INH BID [facility] Last Admin: 04/20/17 07:44 Dose: 2 puff Multi-Ingredient Liniment/Rub (Riki Valera*) 1 applic TOPICAL TID [facility] Last Admin: 04/20/17 14:17 Dose: 1 applic Omeprazole (Prilosec Cap*) 20 mg PO DAILY [facility] Last Admin: 04/20/17 09:20 Dose: 20 mg Ondansetron HCl (Zofran Inj*) 4 mg IV Q6H PRN PRN Reason: NAUSEA Oxybutynin Chloride (Ditropan Xl Tab*) 10 mg PO DAILY [facility] Last Admin: 04/20/17 09:22 Dose: 10 mg Prednisone (Deltasone Tab*) 5 mg PO DAILY [facility] Last Admin: 04/20/17 09:22 Dose: 5 mg Pregabalin (Lyrica Cap(*)) 100 mg PO BID [facility] Last Admin: 04/20/17 09:20 Dose: 100 mg Senna (Senokot Tab*) 2 tab PO BEDTIME [facility] Last Admin: 04/19/17 21:23 Dose: 2 tab . Vital Signs - 8 hr 04/20/17 04/20/17 04/20/17 09:20 09:30 12:29 Respiratory 16 16 16 Rate Oxygen Devices in Use Now: Nasal Cannula, OxyTrach Appearance: elderly and frail. Eyes: No Scleral Icterus Ears/Nose/Mouth/Throat: Clear Oropharnyx Neck: NL Appearance and Movements; NL JVP Respiratory: Symmetrical Chest Expansion and Respiratory Effort Cardiovascular: NL Sounds; No Murmurs; No JVD Abdominal: NL Sounds; No Tenderness; No Distention Lymphatic: No Cervical Adenopathy Extremities: - - peripheral edema noted Skin: No Rash or Ulcers Neurological: Alert and Oriented x 3 Lines/Tubes/Other Access: Clean, Dry and Intact Peripheral IV Nutrition: Taking PO's Result Diagrams: 04/21/17 04:40 04/21/17 04:40 Additional Lab and Data: . Microbiology and Other Data: Microbiology 04/15/17 01:32 Legionella Urinary Antigen - Final Urine Negative Legionella Streptococcus pneumoniae Ag Screen - Final Negative S. pneumo Antigen Assess/Plan/Problems-Billing . Assessment: Mrs. Munoz is a 76 y.o. F with PMH of morbid obesity, type-2 DM, HTN, diastolic CHF, CKD stage 3, OAB, recent admission for pneumonia, who presents 24h after discharge with c/o dyspnea and fever. Admitted with healthcare acquired pneumonia AND fluid overload. Likely also obesity hypo-ventilation syndrome +/- MILLICENT. . - Patient Problems (1) Sepsis Current Visit: Yes Status: Acute Priority: High Comment: - Patient met sepsis criteria (and was septic) on admission with fever and leukocytosis. - Source is pneumonia. (2) Hypercapnic respiratory failure, chronic Current Visit: Yes Status: Chronic Priority: High Comment: - secondary to Obesity Hypoventilation vs. COPD vs. MILLICENT vs combination. - pulmonary consultation...is there value in attempting to utilize NIPPV/BiPAP in this case? (3) HCAP (healthcare-associated pneumonia) Current Visit: Yes Status: Acute Priority: High Code(s): J18.9 - PNEUMONIA , UNSPECIFIED ORGANISM Comment: - Cultures so far no growth. - Influenza negative. - One blood culture grew Staph epidermidis, suggestive of contamination - off Vanco - continuing Cefepime - CT chest showed bibasilar air space disease, but no hilar mass. - Did well during her Swallow eval and esophagogram showed tertiary peristaltic contractions. (4) Afib Current Visit: Yes Status: Acute Priority: High Code(s): I48.91 - UNSPECIFIED ATRIAL FIBRILLATION Comment: - cont Warfarin. - follow INR (5) CHF (congestive heart failure) Current Visit: Yes Status: Acute Priority: High Code(s): I50.9 - HEART FAILURE, UNSPECIFIED Comment: - CXR with pulmonary edema --> furosemide IV 04/20/17. - Echocardiogram with unclear diastolic picture --> I think she clinically has fluid overload and likely diastolic failure. - follow daily weights - peripheral edema noted. (6) CKD (chronic kidney disease) stage 3, GFR 30-59 ml/min Current Visit: Yes Status: Acute Priority: High Code(s): N18.3 - CHRONIC KIDNEY DISEASE, STAGE 3 (MODERATE) Comment: - Renal function stable. - with diuresis, expect some cr increase. (7) DNR (do not resuscitate) Current Visit: Yes Status: Acute Priority: High (8) DVT prophylaxis Current Visit: Yes Status: Acute Code(s): [id number] - SNOMED Code(s): 624648299 Comment: - Warfarin. Status and Disposition: Inpatient.
[2017-04-20] MEDS ORDERED: Furosemide IV* 10 MG/ML VIAL (40 MG) IV ONE (16:34)
[2017-04-20] MEDS ORDERED: Potassium Chlor TAB* 20 MEQ TAB.ER PO ONE (16:34)
[2017-04-20] MEDS: HYDROcodone/ACETAMIN 5-325 MG* 1 TAB PO PRN (17:11)
[2017-04-20] MEDS: Azithromycin IV(*) 500 MG in NS 0.9% 250 ML* 250 ML IVPB SCH (17:56)
[2017-04-20] MEDS: Acetaminophen TAB* 325 MG PO PRN (20:50)
[2017-04-20] MEDS: Senna TAB PO SCH (20:51)
[2017-04-21] MEDS: Cefepime 2 GM in Dextrose(*) 2 GM/50 ML BAG IV SCH ×2 (04:49→17:35)
[2017-04-21 05:07] LABS: Hematocrit 39 % (35-47); Hemoglobin 12.6 g/dl (12.0-16.0); Mean Corpuscular HGB Conc 33 g/dl (31-36); Mean Corpuscular Hemoglobin 30 pg (27-31); Mean Corpuscular Volume 92 fL (80-97); Mean Platelet Volume 9 um3 (7.4-10.4); Red Cell Distribution Width 14 % (10.5-15); White Blood Count 13.6 10^3/ul (3.5-10.8)
[2017-04-21 05:20] LABS: Comments Flag Yes
[2017-04-21 05:30] LABS: BUN/Creatinine Ratio 24.3 (8-20); Calcium 9.5 mg/dL (8.6-10.3); EGFR African American 64.3 (>60); Potassium 3.5 mmol/L (3.5-5.0)
[2017-04-21] MEDS: Mometasone/Formoter 200/5 MDI INH SCH ×2 (08:16→20:28)
[2017-04-21] MEDS: Insulin GLARGINE(*) 1 UNITS UNIT SUBCUT SCH ×2 (08:18→20:24)
[2017-04-21] MEDS: Insulin LISPRO* 1 UNITS UNIT SUBCUT SCH ×3 (08:19→17:34)
[2017-04-21] MEDS: predniSONE TAB* 5 MG PO SCH (08:19)
[2017-04-21] MEDS: Ferrous Sulfate TAB* 325 MG PO SCH (08:20)
[2017-04-21] MEDS: Atorvastatin* 20 MG TAB PO SCH (08:20)
[2017-04-21] MEDS: Omeprazole CAP* 20 MG PO SCH (08:20)
[2017-04-21] MEDS: Pregabalin CAP(*) 100 MG PO SCH ×2 (08:20→20:18)
[2017-04-21] MEDS: Oxybutynin XL TAB* 5 MG PO SCH (08:35)
[2017-04-21] MEDS: Analgesic BALM* 114 GM TOPICAL SCH ×3 (08:38→20:32)
[2017-04-21] MEDS ORDERED: Furosemide IV* 10 MG/ML VIAL (40 MG) IV ONE (13:14)
[2017-04-21] MEDS ORDERED: Potassium Chlor TAB* 10 MEQ TAB.ER PO ONE ×2 (13:14→20:00)
--- NOTE | 2017-04-21 13:20 | PN ---
Subjective Date of Service: 04/21/17 Interval History: . Long meeting with family last night. Discussed case informally with pulm; patient qualifies for BiPAP given her CO2...will do BiPAP trial and repeat ABG to assess tolerability and subjective benefit and decrease of chronic hypercarbia. Patient feels she has a slight cold "I have the sniffles." Update at 6 PM: NIPPV trial with confusing results --> pCO2 upt to 77 ?? pt slept with mask on apparently. Most likely did not sync with the mask...will d/ w Dr. Garcia --> given this result I am not certain BiPAP would help, but perhaps it is a matter of her becoming better accustomed to the mask. Family History: Unchanged from Admission Social History: Unchanged from Admission Past Medical History: Unchanged from Admission Objective Active Medications: Acetaminophen (Tylenol Tab*) 650 mg PO Q4H PRN PRN Reason: FEVER/PAIN Last Admin: 04/20/17 20:50 Dose: 650 mg Hydrocodone Bitart/Acetaminophen ([place] 5-325 Tab*) 2 tab PO Q4H PRN PRN Reason: PAIN Last Admin: 04/20/17 17:11 Dose: 2 tab Albuterol (Ventolin 2.5 Mg/3 Ml Neb.Trisha*) 2.5 mg INH Q2H PRN PRN Reason: SOB/WHEEZING Last Admin: 04/17/17 20:25 Dose: 2.5 mg Atorvastatin Calcium (Lipitor*) 20 mg PO DAILY [facility] Last Admin: 04/21/17 08:20 Dose: 20 mg Dextrose (D50w Syringe 50 Ml*) 12.5 gm IV PUSH .FOR FS < 60 - SS PRN PRN Reason: FS < 60 Ferrous Sulfate (Ferrous Sulfate Tab*) 325 mg PO DAILY [facility] Last Admin: 04/21/17 08:20 Dose: 325 mg Heparin Sodium (Porcine) (Heparin Flush Picc/Ml/Cvc(*)) 1 - 3 ml FLUSH 0600, 1800 [facility] PRN Reason: Protocol Last Admin: 04/21/17 06:12 Dose: Not Given Cefepime HCl (Maxipime 2 Gm In Dextrose Duplex (*)) 2 gm in 50 mls @ 100 mls/ hr IV Q12HR@0400,1600 [facility] Last Admin: 04/21/17 04:49 Dose: 100 mls/hr Azithromycin 500 mg/ Sodium (Chloride) 250 mls @ 250 mls/hr IVPB Q24H [facility] Last Admin: 04/20/17 17:56 Dose: 250 mls/hr Insulin Glargine (Lantus(*)) 20 units SUBCUT BID [facility] Last Admin: 04/21/17 08:18 Dose: 20 units Insulin Human Lispro (Humalog*) 0 units SUBCUT AC [facility] PRN Reason: Protocol Last Admin: 04/21/17 08:19 Dose: 2 unit Melatonin (Melatonin (Nf)) 3 mg PO BEDTIME PRN; Protocol PRN Reason: Sleep Last Admin: 04/20/17 20:51 Dose: 3 mg Mometasone Furoate/Formoterol Fumar (Dulera 200/5 Mdi*) 2 puff INH BID [facility] Last Admin: 04/21/17 08:16 Dose: 2 puff Multi-Ingredient Liniment/Rub (Riki Valera*) 1 applic TOPICAL TID [facility] Last Admin: 04/21/17 08:38 Dose: 1 applic Omeprazole (Prilosec Cap*) 20 mg PO DAILY [facility] Last Admin: 04/21/17 08:20 Dose: 20 mg Ondansetron HCl (Zofran Inj*) 4 mg IV Q6H PRN PRN Reason: NAUSEA Oxybutynin Chloride (Ditropan Xl Tab*) 10 mg PO DAILY [facility] Last Admin: 04/21/17 08:35 Dose: 10 mg Prednisone (Deltasone Tab*) 5 mg PO DAILY [facility] Last Admin: 04/21/17 08:19 Dose: 5 mg Pregabalin (Lyrica Cap(*)) 100 mg PO BID [facility] Last Admin: 04/21/17 08:20 Dose: 100 mg Senna (Senokot Tab*) 2 tab PO BEDTIME [facility] Last Admin: 04/20/17 20:51 Dose: 2 tab Vital Signs - 8 hr 04/21/17 04/21/17 04/21/17 07:38 07:42 08:18 Temperature 97.1 F Pulse Rate 71 71 Respiratory 16 18 19 Rate Blood Pressure 139/65 (mmHg) O2 Sat by Pulse 97 97 Oximetry 04/21/17 04/21/17 04/21/17 08:19 08:20 11:10 Temperature Pulse Rate 71 Respiratory 19 20 18 Rate Blood Pressure (mmHg) O2 Sat by Pulse 97 Oximetry Oxygen Devices in Use Now: Nasal Cannula, OxyTrach Appearance: elderly, obese. NAD. Eyes: No Scleral Icterus Ears/Nose/Mouth/Throat: Clear Oropharnyx Neck: NL Appearance and Movements; NL JVP Respiratory: - - distant BS, no rhonchi. inermittent non-vocal sounds (grunting , ? anxiety, ? tic) Cardiovascular: NL Sounds; No Murmurs; No JVD Abdominal: NL Sounds; No Tenderness; No Distention Lymphatic: No Cervical Adenopathy Extremities: - - + edema LE bilaterally. Skin: No Rash or Ulcers Neurological: Alert and Oriented x 3 Lines/Tubes/Other Access: Clean, Dry and Intact Peripheral IV Nutrition: Taking PO's Result Diagrams: 04/21/17 04:40 04/21/17 04:40 Additional Lab and Data: . Microbiology and Other Data: Microbiology 04/15/17 01:32 Legionella Urinary Antigen - Final Urine Negative Legionella Streptococcus pneumoniae Ag Screen - Final Negative S. pneumo Antigen Assess/Plan/Problems-Billing . Assessment: Mrs. Munoz is a 76 y.o. F with PMH of morbid obesity, type-2 DM, HTN, diastolic CHF, CKD stage 3, OAB, recent admission for pneumonia, who presents 24h after discharge with c/o dyspnea and fever. Admitted with healthcare acquired pneumonia AND fluid overload. Likely also obesity hypo-ventilation syndrome +/- MILLICENT. . - Patient Problems (1) Sepsis Current Visit: Yes Status: Acute Priority: High Comment: - Patient met sepsis criteria (and was septic) on admission with fever and leukocytosis. - Source is pneumonia. (2) Hypercapnic respiratory failure, chronic Current Visit: Yes Status: Chronic Priority: High Comment: - Secondary to Obesity Hypoventilation vs. COPD vs. MILLICENT vs Combination. - Will trial NIPPV to see if hypercarbia improves or patient feels relief (if she tolerates). - Her pCO2 of 69 while awake (her best) qualify her regardless of whether the dx is COPD or obesity hypoventilation. (3) HCAP (healthcare-associated pneumonia) Current Visit: Yes Status: Acute Priority: High Code(s): J18.9 - PNEUMONIA , UNSPECIFIED ORGANISM Comment: - Cultures so far no growth. - Influenza negative. - One blood culture grew Staph epidermidis, suggestive of contamination - off Vanco - continuing Cefepime - CT chest showed bibasilar air space disease, but no hilar mass. - Did well during her Swallow eval and esophagogram showed tertiary peristaltic contractions. (4) Afib Current Visit: Yes Status: Acute Priority: High Code(s): I48.91 - UNSPECIFIED ATRIAL FIBRILLATION Comment: - cont Warfarin. - follow INR (5) CHF (congestive heart failure) Current Visit: Yes Status: Acute Priority: High Code(s): I50.9 - HEART FAILURE, UNSPECIFIED Comment: - CXR with pulmonary edema --> furosemide IV 04/20/17. - Echocardiogram with unclear diastolic picture --> I think she clinically has fluid overload and likely diastolic failure. - follow daily weights - peripheral edema noted. (6) CKD (chronic kidney disease) stage 3, GFR 30-59 ml/min Current Visit: Yes Status: Acute Priority: High Code(s): N18.3 - CHRONIC KIDNEY DISEASE, STAGE 3 (MODERATE) Comment: - Renal function stable. - with diuresis, expect some cr increase. (7) DNR (do not resuscitate) Current Visit: Yes Status: Acute Priority: High (8) DVT prophylaxis Current Visit: Yes Status: Acute Code(s): [id number] - SNOMED Code(s): 208141119 Comment: - Warfarin. Status and Disposition: Inpatient.
[2017-04-21 16:07] LABS: EPAP 5; FIO2 70; IPAP 12; Resp Rate 12
[2017-04-21 16:29] LABS: PCO2 Arterial 77 mmHg (35-45)
[2017-04-21] MEDS: Azithromycin IV(*) 500 MG in NS 0.9% 250 ML* 250 ML IVPB SCH (19:14)
[2017-04-21] MEDS: HYDROcodone/ACETAMIN 5-325 MG* 1 TAB PO PRN (20:15)
[2017-04-21] MEDS: Senna TAB PO SCH (20:18)
[2017-04-22] MEDS: Cefepime 2 GM in Dextrose(*) 2 GM/50 ML BAG IV SCH ×2 (04:24→15:18)
[2017-04-22 05:26] LABS: BUN/Creatinine Ratio 26.3 (8-20); Calcium 9.7 mg/dL (8.6-10.3); EGFR African American 59.8 (>60); EGFR Non-African American 46.5 (>60); Potassium 4.5 mmol/L (3.5-5.0)
[2017-04-22] MEDS: Mometasone/Formoter 200/5 MDI INH SCH ×2 (07:44→21:15)
[2017-04-22] MEDS: Insulin GLARGINE(*) 1 UNITS UNIT SUBCUT SCH ×2 (08:39→21:24)
[2017-04-22] MEDS: Insulin LISPRO* 1 UNITS UNIT SUBCUT SCH ×3 (08:39→18:05)
[2017-04-22] MEDS: Oxybutynin XL TAB* 5 MG PO SCH (08:40)
[2017-04-22] MEDS: Ferrous Sulfate TAB* 325 MG PO SCH (08:40)
[2017-04-22] MEDS: predniSONE TAB* 5 MG PO SCH (08:40)
[2017-04-22] MEDS: Pregabalin CAP(*) 100 MG PO SCH ×2 (08:40→21:23)
[2017-04-22] MEDS: Analgesic BALM* 114 GM TOPICAL SCH ×3 (08:40→21:24)
[2017-04-22] MEDS: Atorvastatin* 20 MG TAB PO SCH (08:40)
[2017-04-22] MEDS: Omeprazole CAP* 20 MG PO SCH (08:40)
[2017-04-22] MEDS: HYDROcodone/ACETAMIN 5-325 MG* 1 TAB PO PRN (15:17)
[2017-04-22] MEDS: Senna TAB PO SCH (21:23)
[2017-04-23] MEDS: Cefepime 2 GM in Dextrose(*) 2 GM/50 ML BAG IV SCH ×2 (03:54→15:35)
[2017-04-23] MEDS: Mometasone/Formoter 200/5 MDI INH SCH ×2 (08:12→20:54)
[2017-04-23] MEDS: Insulin LISPRO* 1 UNITS UNIT SUBCUT SCH ×3 (08:18→16:50)
[2017-04-23] MEDS: Analgesic BALM* 114 GM TOPICAL SCH ×3 (09:48→21:21)
[2017-04-23] MEDS: Insulin GLARGINE(*) 1 UNITS UNIT SUBCUT SCH ×2 (09:48→21:20)
[2017-04-23] MEDS: Atorvastatin* 20 MG TAB PO SCH (09:49)
[2017-04-23] MEDS: predniSONE TAB* 5 MG PO SCH (09:49)
[2017-04-23] MEDS: Ferrous Sulfate TAB* 325 MG PO SCH (09:49)
[2017-04-23] MEDS: Omeprazole CAP* 20 MG PO SCH (09:49)
[2017-04-23] MEDS: Oxybutynin XL TAB* 5 MG PO SCH (09:49)
[2017-04-23] MEDS: Pregabalin CAP(*) 100 MG PO SCH ×2 (09:49→19:36)
--- NOTE | 2017-04-23 15:03 | PN ---
Subjective Date of Service: 04/22/17 Interval History: . did ok overall today no CP - still SOB often tolerated BiPAP acceptably, though did not get pCO2 reduction advantage I was hoping for. Will discuss with RT and formulate a plan Done with antibiotics. . Family History: Unchanged from Admission Social History: Unchanged from Admission Past Medical History: Unchanged from Admission Objective Active Medications: . Acetaminophen (Tylenol Tab*) 650 mg PO Q4H PRN PRN Reason: FEVER/PAIN Last Admin: 04/20/17 20:50 Dose: 650 mg Hydrocodone Bitart/Acetaminophen ([place] 5-325 Tab*) 2 tab PO Q4H PRN PRN Reason: PAIN Last Admin: 04/22/17 15:17 Dose: 2 tab Albuterol (Ventolin 2.5 Mg/3 Ml Neb.Trisha*) 2.5 mg INH Q2H PRN PRN Reason: SOB/WHEEZING Last Admin: 04/17/17 20:25 Dose: 2.5 mg Atorvastatin Calcium (Lipitor*) 20 mg PO DAILY [facility] Last Admin: 04/23/17 09:49 Dose: 20 mg Dextrose (D50w Syringe 50 Ml*) 12.5 gm IV PUSH .FOR FS < 60 - SS PRN PRN Reason: FS < 60 Ferrous Sulfate (Ferrous Sulfate Tab*) 325 mg PO DAILY [facility] Last Admin: 04/23/17 09:49 Dose: 325 mg Cefepime HCl (Maxipime 2 Gm In Dextrose Duplex (*)) 2 gm in 50 mls @ 100 mls/ hr IV Q12HR@0400,1600 [facility] Last Admin: 04/23/17 03:54 Dose: 100 mls/hr Insulin Glargine (Lantus(*)) 20 units SUBCUT BID [facility] Last Admin: 04/23/17 09:48 Dose: 20 units Insulin Human Lispro (Humalog*) 0 units SUBCUT AC [facility] PRN Reason: Protocol Last Admin: 04/23/17 12:41 Dose: 2 unit Melatonin (Melatonin (Nf)) 3 mg PO BEDTIME PRN; Protocol PRN Reason: Sleep Last Admin: 04/20/17 20:51 Dose: 3 mg Mometasone Furoate/Formoterol Fumar (Dulera 200/5 Mdi*) 2 puff INH BID [facility] Last Admin: 04/23/17 08:12 Dose: 2 puff Multi-Ingredient Liniment/Rub (Riki Valera*) 1 applic TOPICAL TID [facility] Last Admin: 04/23/17 13:35 Dose: Not Given Omeprazole (Prilosec Cap*) 20 mg PO DAILY [facility] Last Admin: 04/23/17 09:49 Dose: 20 mg Ondansetron HCl (Zofran Inj*) 4 mg IV Q6H PRN PRN Reason: NAUSEA Oxybutynin Chloride (Ditropan Xl Tab*) 10 mg PO DAILY [facility] Last Admin: 04/23/17 09:49 Dose: 10 mg Prednisone (Deltasone Tab*) 5 mg PO DAILY [facility] Last Admin: 04/23/17 09:49 Dose: 5 mg Pregabalin (Lyrica Cap(*)) 100 mg PO BID [facility] Last Admin: 04/23/17 09:49 Dose: 100 mg Senna (Senokot Tab*) 2 tab PO BEDTIME [facility] Last Admin: 04/22/17 21:23 Dose: 2 tab . Vital Signs - 8 hr 04/23/17 04/23/17 04/23/17 07:42 08:00 08:14 Temperature 97.7 F Pulse Rate 65 84 Respiratory 18 20 20 Rate Blood Pressure 126/56 (mmHg) O2 Sat by Pulse 95 95 Oximetry 04/23/17 09:49 Temperature Pulse Rate Respiratory 16 Rate Blood Pressure (mmHg) O2 Sat by Pulse Oximetry Oxygen Devices in Use Now: Nasal Cannula Appearance: NAD Eyes: No Scleral Icterus Ears/Nose/Mouth/Throat: Clear Oropharnyx Neck: Trachea Midline Respiratory: Symmetrical Chest Expansion and Respiratory Effort - evident difficult breathing at times Cardiovascular: NL Sounds; No Murmurs; No JVD Abdominal: NL Sounds; No Tenderness; No Distention Extremities: - - + lower extremity edema Skin: No Rash or Ulcers Neurological: Alert and Oriented x 3 Lines/Tubes/Other Access: Clean, Dry and Intact Peripheral IV Nutrition: Taking PO's Result Diagrams: 04/21/17 04:40 04/22/17 04:21 Additional Lab and Data: . Microbiology and Other Data: Microbiology 04/15/17 01:32 Legionella Urinary Antigen - Final Urine Negative Legionella Streptococcus pneumoniae Ag Screen - Final Negative S. pneumo Antigen Assess/Plan/Problems-Billing . Assessment: Mrs. Munoz is a 76 y.o. F with PMH of morbid obesity, type-2 DM, HTN, diastolic CHF, CKD stage 3, OAB, recent admission for pneumonia, who presents 24h after discharge with c/o dyspnea and fever. Admitted with healthcare acquired pneumonia AND fluid overload. Likely also obesity hypo-ventilation syndrome +/- MILLICENT. . - Patient Problems (1) Sepsis Current Visit: Yes Status: Acute Priority: High Comment: - Patient met sepsis criteria (and was septic) on admission with fever and leukocytosis. - Source is pneumonia. (2) Hypercapnic respiratory failure, chronic Current Visit: Yes Status: Chronic Priority: High Comment: - Secondary to Obesity Hypoventilation vs. COPD vs. MILLICENT vs Combination. - Pt accepts NIPVV, but does not sync with settings well. I think she would benefit from trilogy system. (3) HCAP (healthcare-associated pneumonia) Current Visit: Yes Status: Acute Priority: High Code(s): J18.9 - PNEUMONIA , UNSPECIFIED ORGANISM Comment: - Cultures so far no growth. - Influenza negative. - One blood culture grew Staph epidermidis, suggestive of contamination - off Vanco - continuing Cefepime - CT chest showed bibasilar air space disease, but no hilar mass. - Did well during her Swallow eval and esophagogram showed tertiary peristaltic contractions. (4) Afib Current Visit: Yes Status: Acute Priority: High Code(s): I48.91 - UNSPECIFIED ATRIAL FIBRILLATION Comment: - cont Warfarin. - follow INR (5) CHF (congestive heart failure) Current Visit: Yes Status: Acute Priority: High Code(s): I50.9 - HEART FAILURE, UNSPECIFIED Comment: - CXR with pulmonary edema --> furosemide IV 04/20/17. - Echocardiogram with unclear diastolic picture --> I think she clinically has fluid overload and likely diastolic failure. - follow daily weights - peripheral edema noted. (6) CKD (chronic kidney disease) stage 3, GFR 30-59 ml/min Current Visit: Yes Status: Acute Priority: High Code(s): N18.3 - CHRONIC KIDNEY DISEASE, STAGE 3 (MODERATE) Comment: - Renal function stable. - with diuresis, expect some cr increase. (7) DNR (do not resuscitate) Current Visit: Yes Status: Acute Priority: High (8) DVT prophylaxis Current Visit: Yes Status: Acute Code(s): OFF4268 - SNOMED Code(s): 644447249 Comment: - Warfarin. Status and Disposition: Inpatient.
--- NOTE | 2017-04-23 15:11 | PN ---
Subjective Date of Service: 04/23/17 Interval History: . After consultation with RT and review of the last few days and reconsideration of this patient: I think the patient will benefit from the Trilogy due to chronic respiratory failure secondary to obesity hypoventilation syndrome. Bipap has been considered but does not offer the best modes of therapy. The trilogy offers the AVAP-AE mode which will target her tidal volume based on her ideal body weight. Patient will benefit from the sip and puff mode so she can use mouth piece ventilation during the day and mask at night utilizing therapy up to 24 hours a day. The trilogy offers a battery life of 6 hours which can be used in the event of a power outage as interruption of ventilation can lead to serious medical consequence. This vent will provide the pulmonary support she needs to reduce her CO2 levels. . Family History: Unchanged from Admission Social History: Unchanged from Admission Past Medical History: Unchanged from Admission Objective Active Medications: . Acetaminophen (Tylenol Tab*) 650 mg PO Q4H PRN PRN Reason: FEVER/PAIN Last Admin: 04/20/17 20:50 Dose: 650 mg Hydrocodone Bitart/Acetaminophen ([place] 5-325 Tab*) 2 tab PO Q4H PRN PRN Reason: PAIN Last Admin: 04/22/17 15:17 Dose: 2 tab Albuterol (Ventolin 2.5 Mg/3 Ml Neb.Trisha*) 2.5 mg INH Q2H PRN PRN Reason: SOB/WHEEZING Last Admin: 04/17/17 20:25 Dose: 2.5 mg Atorvastatin Calcium (Lipitor*) 20 mg PO DAILY [facility] Last Admin: 04/23/17 09:49 Dose: 20 mg Dextrose (D50w Syringe 50 Ml*) 12.5 gm IV PUSH .FOR FS < 60 - SS PRN PRN Reason: FS < 60 Ferrous Sulfate (Ferrous Sulfate Tab*) 325 mg PO DAILY [facility] Last Admin: 04/23/17 09:49 Dose: 325 mg Cefepime HCl (Maxipime 2 Gm In Dextrose Duplex (*)) 2 gm in 50 mls @ 100 mls/ hr IV Q12HR@0400,1600 [facility] Last Admin: 04/23/17 03:54 Dose: 100 mls/hr Insulin Glargine (Lantus(*)) 20 units SUBCUT BID [facility] Last Admin: 04/23/17 09:48 Dose: 20 units Insulin Human Lispro (Humalog*) 0 units SUBCUT AC [facility] PRN Reason: Protocol Last Admin: 04/23/17 12:41 Dose: 2 unit Melatonin (Melatonin (Nf)) 3 mg PO BEDTIME PRN; Protocol PRN Reason: Sleep Last Admin: 04/20/17 20:51 Dose: 3 mg Mometasone Furoate/Formoterol Fumar (Dulera 200/5 Mdi*) 2 puff INH BID [facility] Last Admin: 04/23/17 08:12 Dose: 2 puff Multi-Ingredient Liniment/Rub (Riki Valera*) 1 applic TOPICAL TID [facility] Last Admin: 04/23/17 13:35 Dose: Not Given Omeprazole (Prilosec Cap*) 20 mg PO DAILY [facility] Last Admin: 04/23/17 09:49 Dose: 20 mg Ondansetron HCl (Zofran Inj*) 4 mg IV Q6H PRN PRN Reason: NAUSEA Oxybutynin Chloride (Ditropan Xl Tab*) 10 mg PO DAILY [facility] Last Admin: 04/23/17 09:49 Dose: 10 mg Prednisone (Deltasone Tab*) 5 mg PO DAILY [facility] Last Admin: 04/23/17 09:49 Dose: 5 mg Pregabalin (Lyrica Cap(*)) 100 mg PO BID [facility] Last Admin: 04/23/17 09:49 Dose: 100 mg Senna (Senokot Tab*) 2 tab PO BEDTIME [facility] Last Admin: 04/22/17 21:23 Dose: 2 tab Vital Signs - 8 hr 04/23/17 04/23/17 04/23/17 07:42 08:00 08:14 Temperature 97.7 F Pulse Rate 65 84 Respiratory 18 20 20 Rate Blood Pressure 126/56 (mmHg) O2 Sat by Pulse 95 95 Oximetry 04/23/17 09:49 Temperature Pulse Rate Respiratory 16 Rate Blood Pressure (mmHg) O2 Sat by Pulse Oximetry Oxygen Devices in Use Now: Nasal Cannula Appearance: NAD at rest - appears short of breath at times Eyes: No Scleral Icterus Ears/Nose/Mouth/Throat: Clear Oropharnyx Neck: Trachea Midline Respiratory: - - distant breath sounds; impaired air exchange. Abdominal: No Hepatosplenomegaly, - - obese abd: restrictive effedct on c[place] ([facility]) Lymphatic: No Cervical Adenopathy Extremities: - - + lowe rextremity edema Skin: No Nodules or Sclerosis Neurological: Alert and Oriented x 3 Lines/Tubes/Other Access: Clean, Dry and Intact Peripheral IV Nutrition: Taking PO's Result Diagrams: 04/21/17 04:40 04/22/17 04:21 Additional Lab and Data: . Microbiology and Other Data: Microbiology 04/15/17 01:32 Legionella Urinary Antigen - Final Urine Negative Legionella Streptococcus pneumoniae Ag Screen - Final Negative S. pneumo Antigen Assess/Plan/Problems-Billing . Assessment: Mrs. Munoz is a 76 y.o. F with PMH of morbid obesity, type-2 DM, HTN, diastolic CHF, CKD stage 3, OAB, recent admission for pneumonia, who presents 24h after discharge with c/o dyspnea and fever. Admitted with healthcare acquired pneumonia AND fluid overload. Likely also obesity hypo-ventilation syndrome +/- MILLICENT. Advising patient be treated with trilogy NIPPV. . - Patient Problems (1) Sepsis Current Visit: Yes Status: Acute Priority: High Comment: - Patient met sepsis criteria (and was septic) on admission with fever and leukocytosis. - Source is pneumonia. (2) Hypercapnic respiratory failure, chronic Current Visit: Yes Status: Chronic Priority: High Comment: - Secondary to Obesity Hypoventilation vs. COPD vs. MILLICENT vs Combination. - Pt accepts NIPVV, but does not sync well with bipap settings. I think she would benefit from Trilogy system. (3) HCAP (healthcare-associated pneumonia) Current Visit: Yes Status: Acute Priority: High Code(s): J18.9 - PNEUMONIA , UNSPECIFIED ORGANISM Comment: - Cultures so far no growth. - Influenza negative. - One blood culture grew Staph epidermidis, suggestive of contamination - Off Vanco - continuing Cefepime - CT chest showed bibasilar air space disease, but no hilar mass. - Did well during her Swallow eval and esophagogram showed tertiary peristaltic contractions. (4) Afib Current Visit: Yes Status: Acute Priority: High Code(s): I48.91 - UNSPECIFIED ATRIAL FIBRILLATION Comment: - cont Warfarin. - follow INR (5) CHF (congestive heart failure) Current Visit: Yes Status: Acute Priority: High Code(s): I50.9 - HEART FAILURE, UNSPECIFIED Comment: - CXR with pulmonary edema --> furosemide IV 04/20/17. - Echocardiogram with unclear diastolic picture --> I think she clinically has fluid overload and likely diastolic failure. - follow daily weights - peripheral edema noted. (6) CKD (chronic kidney disease) stage 3, GFR 30-59 ml/min Current Visit: Yes Status: Acute Priority: High Code(s): N18.3 - CHRONIC KIDNEY DISEASE, STAGE 3 (MODERATE) Comment: - Renal function stable. - with diuresis, expect some cr increase. (7) DNR (do not resuscitate) Current Visit: Yes Status: Acute Priority: High (8) DVT prophylaxis Current Visit: Yes Status: Acute Code(s): MTH7916 - SNOMED Code(s): 465568595 Comment: - Warfarin. Status and Disposition: Inpatient.
[2017-04-23] MEDS: Senna TAB PO SCH (19:35)
[2017-04-23] MEDS: HYDROcodone/ACETAMIN 5-325 MG* 1 TAB PO PRN (19:36)
[2017-04-24] MEDS: HYDROcodone/ACETAMIN 5-325 MG* 1 TAB PO PRN ×2 (01:49→21:25)
[2017-04-24] MEDS: Cefepime 2 GM in Dextrose(*) 2 GM/50 ML BAG IV SCH (04:50)
[2017-04-24] MEDS: Oxybutynin XL TAB* 5 MG PO SCH (08:36)
[2017-04-24] MEDS: Omeprazole CAP* 20 MG PO SCH (08:36)
[2017-04-24] MEDS: Atorvastatin* 20 MG TAB PO SCH (08:36)
[2017-04-24] MEDS: predniSONE TAB* 5 MG PO SCH (08:36)
[2017-04-24] MEDS: Ferrous Sulfate TAB* 325 MG PO SCH (08:37)
[2017-04-24] MEDS: Pregabalin CAP(*) 100 MG PO SCH ×2 (08:37→21:26)
[2017-04-24] MEDS: Mometasone/Formoter 200/5 MDI INH SCH ×2 (08:39→21:15)
[2017-04-24] MEDS: Analgesic BALM* 114 GM TOPICAL SCH ×3 (08:41→21:24)
[2017-04-24] MEDS: Insulin LISPRO* 1 UNITS UNIT SUBCUT SCH ×3 (08:45→18:19)
[2017-04-24] MEDS: Insulin GLARGINE(*) 1 UNITS UNIT SUBCUT SCH ×2 (09:22→21:25)
--- NOTE | 2017-04-24 14:54 | PN ---
Subjective Date of Service: 04/24/17 Interval History: Pt is feeling upset currently. She just learned that if she needs the trilogy machine she can not return to [facility] and needs to go to [place] in [place]. This upsets the patient greatly that she would be further away from her children. She states currently her breathing is ok. Family History: Unchanged from Admission Social History: Unchanged from Admission Past Medical History: Unchanged from Admission Objective Active Medications: Acetaminophen (Tylenol Tab*) 650 mg PO Q4H PRN PRN Reason: FEVER/PAIN Last Admin: 04/20/17 20:50 Dose: 650 mg Hydrocodone Bitart/Acetaminophen ([place] 5-325 Tab*) 2 tab PO Q4H PRN PRN Reason: PAIN Last Admin: 04/24/17 01:49 Dose: 2 tab Albuterol (Ventolin 2.5 Mg/3 Ml Neb.Trisha*) 2.5 mg INH Q2H PRN PRN Reason: SOB/WHEEZING Last Admin: 04/17/17 20:25 Dose: 2.5 mg Atorvastatin Calcium (Lipitor*) 20 mg PO DAILY [facility] Last Admin: 04/24/17 08:36 Dose: 20 mg Dextrose (D50w Syringe 50 Ml*) 12.5 gm IV PUSH .FOR FS < 60 - SS PRN PRN Reason: FS < 60 Ferrous Sulfate (Ferrous Sulfate Tab*) 325 mg PO DAILY [facility] Last Admin: 04/24/17 08:37 Dose: 325 mg Cefepime HCl (Maxipime 2 Gm In Dextrose Duplex (*)) 2 gm in 50 mls @ 100 mls/ hr IV Q12HR@0400,1600 [facility] Last Admin: 04/24/17 04:50 Dose: 100 mls/hr Insulin Glargine (Lantus(*)) 20 units SUBCUT BID [facility] Last Admin: 04/24/17 09:22 Dose: 20 units Insulin Human Lispro (Humalog*) 0 units SUBCUT AC [facility] PRN Reason: Protocol Last Admin: 04/24/17 13:16 Dose: 6 unit Melatonin (Melatonin (Nf)) 3 mg PO BEDTIME PRN; Protocol PRN Reason: Sleep Last Admin: 04/20/17 20:51 Dose: 3 mg Mometasone Furoate/Formoterol Fumar (Dulera 200/5 Mdi*) 2 puff INH BID [facility] Last Admin: 04/24/17 08:39 Dose: 2 puff Multi-Ingredient Liniment/Rub (Riki Valera*) 1 applic TOPICAL TID [facility] Last Admin: 04/24/17 08:41 Dose: 1 applic Omeprazole (Prilosec Cap*) 20 mg PO DAILY [facility] Last Admin: 04/24/17 08:36 Dose: 20 mg Ondansetron HCl (Zofran Inj*) 4 mg IV Q6H PRN PRN Reason: NAUSEA Oxybutynin Chloride (Ditropan Xl Tab*) 10 mg PO DAILY [facility] Last Admin: 04/24/17 08:36 Dose: 10 mg Prednisone (Deltasone Tab*) 5 mg PO DAILY [facility] Last Admin: 04/24/17 08:36 Dose: 5 mg Pregabalin (Lyrica Cap(*)) 100 mg PO BID [facility] Last Admin: 04/24/17 08:37 Dose: 100 mg Senna (Senokot Tab*) 2 tab PO BEDTIME [facility] Last Admin: 04/23/17 19:35 Dose: 2 tab Vital Signs - 8 hr 04/24/17 04/24/17 04/24/17 07:18 08:30 08:37 Temperature 97.7 F Pulse Rate 69 Respiratory 16 16 16 Rate Blood Pressure 157/54 (mmHg) O2 Sat by Pulse 96 Oximetry 04/24/17 10:40 Temperature Pulse Rate Respiratory 16 Rate Blood Pressure (mmHg) O2 Sat by Pulse Oximetry Oxygen Devices in Use Now: Nasal Cannula Appearance: Elderly obese female sitting up in a chair, NAD Eyes: No Scleral Icterus Ears/Nose/Mouth/Throat: Mucous Membranes Moist Respiratory: Symmetrical Chest Expansion and Respiratory Effort, Clear to Auscultation - diminished breath sounds at the bases but clear Cardiovascular: NL Sounds; No Murmurs; No JVD, RRR, - - improved LE edema with laci wraps in place Abdominal: NL Sounds; No Tenderness; No Distention Extremities: No Clubbing, Cyanosis Skin: No Nodules or Sclerosis Neurological: Alert and Oriented x 3, - - tearful in talking about the potential move Result Diagrams: 04/21/17 04:40 04/22/17 04:21 Additional Lab and Data: . Microbiology and Other Data: Microbiology 04/15/17 01:32 Legionella Urinary Antigen - Final Urine Negative Legionella Streptococcus pneumoniae Ag Screen - Final Negative S. pneumo Antigen Assess/Plan/Problems-Billing Mrs. Munoz is a 76 yo F with PMHx of morbid obesity, type-2 DM, HTN, diastolic CHF, CKD stage 3 and recent admission for pneumonia, who presents 24h after discharge with c/o dyspnea and fever. - Patient Problems (1) Sepsis Current Visit: Yes Status: Acute Priority: High Comment: Present on admission and now resolved. (2) HCAP (healthcare-associated pneumonia) Current Visit: Yes Status: Acute Priority: High Code(s): J18.9 - PNEUMONIA , UNSPECIFIED ORGANISM SNOMED Code(s): 540085019 Comment: d/c cefepime, she has had 9 days of therapy. (3) Hypercapnic respiratory failure, chronic Current Visit: Yes Status: Chronic Priority: High Comment: Pt is to be set up for trilogy now but I suspect, as does her son, she will refuse to use the trilogy as she does not want to leave [facility]. I have then recommended she consider hospice as she is likely to have recurrent hospitalizations for hypercapnic respiratory failure. She and her family are considering this. (4) Afib Current Visit: Yes Status: Acute Priority: High Code(s): I48.91 - UNSPECIFIED ATRIAL FIBRILLATION SNOMED Code(s): 25118649 Comment: Check INR today as she was slightly supratherapeutic on 04/20. (5) CKD (chronic kidney disease) stage 3, GFR 30-59 ml/min Current Visit: Yes Status: Acute Priority: High Code(s): N18.3 - CHRONIC KIDNEY DISEASE, STAGE 3 (MODERATE) SNOMED Code(s): 608182199 Comment: Creatinine is stable despite diuresis. (6) DVT prophylaxis Current Visit: Yes Status: Acute Code(s): UWM0299 - SNOMED Code(s): 437711808 Comment: coumadin (7) DNR (do not resuscitate) Current Visit: Yes Status: Acute Priority: High (8) Type 2 diabetes mellitus Current Visit: No Status: Acute Comment: Sugars are under fair control. Monitor on home dose of insulin. Status and Disposition: Inpatient.
[2017-04-24] MEDS: Senna TAB PO SCH (21:25)
[2017-04-24] MEDS: Acetaminophen TAB* 325 MG PO PRN (23:47)
[2017-04-25] MEDS: HYDROcodone/ACETAMIN 5-325 MG* 1 TAB PO PRN ×2 (02:38→21:28)
[2017-04-25] MEDS: Insulin LISPRO* 1 UNITS UNIT SUBCUT SCH ×3 (08:23→17:36)
[2017-04-25] MEDS: Insulin GLARGINE(*) 1 UNITS UNIT SUBCUT SCH ×2 (09:20→20:25)
[2017-04-25] MEDS: Omeprazole CAP* 20 MG PO SCH (09:20)
[2017-04-25] MEDS: Ferrous Sulfate TAB* 325 MG PO SCH (09:20)
[2017-04-25] MEDS: Oxybutynin XL TAB* 5 MG PO SCH (09:20)
[2017-04-25] MEDS: Atorvastatin* 20 MG TAB PO SCH (09:20)
[2017-04-25] MEDS: Pregabalin CAP(*) 100 MG PO SCH ×2 (09:20→20:24)
[2017-04-25] MEDS: Mometasone/Formoter 200/5 MDI INH SCH ×2 (09:21→21:32)
[2017-04-25] MEDS: Analgesic BALM* 114 GM TOPICAL SCH ×3 (09:21→20:27)
[2017-04-25] MEDS: predniSONE TAB* 5 MG PO SCH (09:21)
--- NOTE | 2017-04-25 10:17 | PN ---
Subjective Date of Service: 04/25/17 Interval History: Pt is very drowsy and falls asleep numerous times during my evaluation. She is not able to answer any of my questions as she falls asleep. Family History: Unchanged from Admission Social History: Unchanged from Admission Past Medical History: Unchanged from Admission Objective Active Medications: Acetaminophen (Tylenol Tab*) 650 mg PO Q4H PRN PRN Reason: FEVER/PAIN Last Admin: 04/24/17 23:47 Dose: 650 mg Hydrocodone Bitart/Acetaminophen ([place] 5-325 Tab*) 2 tab PO Q4H PRN PRN Reason: PAIN Last Admin: 04/25/17 02:38 Dose: 2 tab Albuterol (Ventolin 2.5 Mg/3 Ml Neb.Trisha*) 2.5 mg INH Q2H PRN PRN Reason: SOB/WHEEZING Last Admin: 04/17/17 20:25 Dose: 2.5 mg Atorvastatin Calcium (Lipitor*) 20 mg PO DAILY [facility] Last Admin: 04/25/17 09:20 Dose: 20 mg Dextrose (D50w Syringe 50 Ml*) 12.5 gm IV PUSH .FOR FS < 60 - SS PRN PRN Reason: FS < 60 Ferrous Sulfate (Ferrous Sulfate Tab*) 325 mg PO DAILY [facility] Last Admin: 04/25/17 09:20 Dose: 325 mg Insulin Glargine (Lantus(*)) 20 units SUBCUT BID [facility] Last Admin: 04/25/17 09:20 Dose: 20 units Insulin Human Lispro (Humalog*) 0 units SUBCUT AC [facility] PRN Reason: Protocol Last Admin: 04/25/17 08:23 Dose: Not Given Melatonin (Melatonin (Nf)) 3 mg PO BEDTIME PRN; Protocol PRN Reason: Sleep Last Admin: 04/20/17 20:51 Dose: 3 mg Mometasone Furoate/Formoterol Fumar (Dulera 200/5 Mdi*) 2 puff INH BID [facility] Last Admin: 04/25/17 09:21 Dose: 2 puff Multi-Ingredient Liniment/Rub (Riki Valera*) 1 applic TOPICAL TID [facility] Last Admin: 04/25/17 09:21 Dose: 1 applic Omeprazole (Prilosec Cap*) 20 mg PO DAILY [facility] Last Admin: 04/25/17 09:20 Dose: 20 mg Ondansetron HCl (Zofran Inj*) 4 mg IV Q6H PRN PRN Reason: NAUSEA Oxybutynin Chloride (Ditropan Xl Tab*) 10 mg PO DAILY [facility] Last Admin: 04/25/17 09:20 Dose: 10 mg Prednisone (Deltasone Tab*) 5 mg PO DAILY [facility] Last Admin: 04/25/17 09:21 Dose: 5 mg Pregabalin (Lyrica Cap(*)) 100 mg PO BID [facility] Last Admin: 04/25/17 09:20 Dose: 100 mg Senna (Senokot Tab*) 2 tab PO BEDTIME [facility] Last Admin: 04/24/17 21:25 Dose: 2 tab Warfarin Sodium (Coumadin Tab(*)) 5 mg PO DAILY@1700 [facility] PRN Reason: Protocol Vital Signs - 8 hr 04/25/17 04/25/17 04/25/17 02:38 03:23 05:20 Temperature 98.0 F Pulse Rate 66 Respiratory 21 17 18 Rate Blood Pressure 124/56 (mmHg) O2 Sat by Pulse 94 Oximetry 04/25/17 04/25/17 04/25/17 07:18 07:22 09:20 Temperature 97.5 F Pulse Rate 64 Respiratory 20 14 20 Rate Blood Pressure 121/54 (mmHg) O2 Sat by Pulse 96 Oximetry Oxygen Devices in Use Now: Nasal Cannula - 2L-96% Appearance: Elderly female sitting up in a recliner, very sleepy and frequently falls asleep without being able to answer any of my questions. Eyes: No Scleral Icterus Ears/Nose/Mouth/Throat: Mucous Membranes Moist Respiratory: Symmetrical Chest Expansion and Respiratory Effort, Clear to Auscultation - anteriorly Cardiovascular: NL Sounds; No Murmurs; No JVD, RRR, - - trace LE edema Abdominal: NL Sounds; No Tenderness; No Distention Extremities: No Clubbing, Cyanosis Skin: No Rash or Ulcers, No Nodules or Sclerosis Neurological: - - somnolent Result Diagrams: 04/21/17 04:40 04/22/17 04:21 Additional Lab and Data: . Microbiology and Other Data: Microbiology 04/15/17 01:32 Legionella Urinary Antigen - Final Urine Negative Legionella Streptococcus pneumoniae Ag Screen - Final Negative S. pneumo Antigen Assess/Plan/Problems-Billing Mrs. Munoz is a 76 yo F with PMHx of morbid obesity, type-2 DM, HTN, diastolic CHF, CKD stage 3 and recent admission for pneumonia, who presents 24h after discharge with c/o dyspnea and fever. - Patient Problems (1) Sepsis Current Visit: Yes Status: Acute Priority: High Comment: Present on admission and now resolved. (2) HCAP (healthcare-associated pneumonia) Current Visit: Yes Status: Acute Priority: High Code(s): J18.9 - PNEUMONIA , UNSPECIFIED ORGANISM SNOMED Code(s): 419138425 Comment: Pt has completed 9 days of therapy. (3) Hypercapnic respiratory failure, chronic Current Visit: Yes Status: Chronic Priority: High Comment: The patient is refusing to go to [place] so she can use the trilogy machine. I discussed with the patient yesterday and her daughter today that if the patient is refusing to use the trilogy we can try BiPAP but it was thought to be not effective, and I recommend a hospice evaluation as she will likely have recurrent issues with acute on chronic hypercapnic respiratory failure and need for repeat hospitalizations. If she refuses the trilogy/[place] placement now she is likely to continue to refuse and there would be no benefit hospitalization as the recommendations will be essentially the same which is to be started on trilogy and go to [place]. (4) Afib Current Visit: Yes Status: Acute Priority: High Code(s): I48.91 - UNSPECIFIED ATRIAL FIBRILLATION SNOMED Code(s): 04535332 Comment: INR is now subtherapeutic as she has been off coumadin since 04/20 when her INR went supratherapeutic. Will start coumadin 5mg daily and recheck INR tomorrow. (5) CKD (chronic kidney disease) stage 3, GFR 30-59 ml/min Current Visit: Yes Status: Acute Priority: High Code(s): N18.3 - CHRONIC KIDNEY DISEASE, STAGE 3 (MODERATE) SNOMED Code(s): 653044257 Comment: Creatinine is stable despite diuresis. (6) DVT prophylaxis Current Visit: Yes Status: Acute Code(s): TPM7165 - SNOMED Code(s): 342970125 Comment: SQ heparin until INR therapeutic (7) DNR (do not resuscitate) Current Visit: Yes Status: Acute Priority: High (8) Type 2 diabetes mellitus Current Visit: No Status: Acute Comment: Sugars are under fair control. Monitor on home dose of insulin. Status and Disposition: Inpatient.
[2017-04-25 10:24] LABS: PCO2 Arterial 72 mmHg (35-45)
[2017-04-25 11:10] LABS: PCO2 Arterial 64 mmHg (35-45)
--- NOTE | 2017-04-25 13:52 | CONSULT ---
Palliative / Hospice Consult Ordering Provider: Monisha Luevano - Subjective Code Status: DNR Advance Directives Location: In Chart MOLST Part A Completed: Yes - DNR MOL[facility] Part E Completed:: Yes - DNI - History or Present Illness History or Present Illness: This 76 year old woman with obesity, DM, AF, HTN, CHF, CKD, OAB, and chronic hypoxic hypercarbic respiratory failure is referred for consideration of hospice eligibility. SHe was admitted here 04/16/17, just one day after discharge, for recurrent sx/signs of pneumonia with sepsis. She began coughing with fever at her SNF and was found to be hypoxic. During her stay here, she has had consistent hyoercarbia. She has been deemed appropriate for a trilogy ventilator, but she has staunchly refused to move to a facility that can care for ventilator-dependent patients, the closest one being in [place]. Apparently she also finds the tight face mask very uncomfortable. Lab Values: Abnormal Lab Results 04/24/17 04/24/17 04/24/17 18:01 18:58 20:02 INR (Anticoag Therapy) 1.12 H Patient Temperature ABG pH ABG pH (Temp Correct) ABG pCO2 ABG pCO2 (Temp Corrct ABG pO2 ABG pO2 (Temp Correct ABG HCO3 ABG O2 Saturation ABG Base Excess Respiration Rate O2 Delivery Device Ventilator Type Vent Mode FiO2 Inspiratory Time PEEP Pressure Support Pressure Control EPAP IPAP BiPAP POC Glucose (mg/dL) 256 H 240 H 04/25/17 04/25/17 04/25/17 08:22 09:45 10:58 INR (Anticoag Therapy) Patient Temperature Not Reportable ABG pH 7.34 L 7.39 ABG pH (Temp Correct) Not Reportable ABG pCO2 72 H* 64 H ABG pCO2 (Temp Corrct Not Reportable ABG pO2 90 63 L ABG pO2 (Temp Correct Not Reportable ABG HCO3 32.8 H 33.6 H ABG O2 Saturation 97.1 94.7 L ABG Base Excess 10.1 H 11.2 H Respiration Rate Not Reportable O2 Delivery Device nasal cannula 2 lpm Ventilator Type Not Reportable Vent Mode Not Reportable FiO2 Not Reportable Inspiratory Time Not Reportable PEEP Not Reportable Pressure Support Not Reportable Pressure Control Not Reportable EPAP Not Reportable IPAP Not Reportable BiPAP Not Reportable POC Glucose (mg/dL) 109 H 04/25/17 12:09 INR (Anticoag Therapy) Patient Temperature ABG pH ABG pH (Temp Correct) ABG pCO2 ABG pCO2 (Temp Corrct ABG pO2 ABG pO2 (Temp Correct ABG HCO3 ABG O2 Saturation ABG Base Excess Respiration Rate O2 Delivery Device Ventilator Type Vent Mode FiO2 Inspiratory Time PEEP Pressure Support Pressure Control EPAP IPAP BiPAP POC Glucose (mg/dL) 225 H Laboratory Last Values WBC 13.6 10^3/ul (3.5-10.8) H 04/21/17 04:40 RBC 4.20 10^6/ul (4.0-5.4) 04/21/17 04:40 Hgb 12.6 g/dl (12.0-16.0) 04/21/17 04:40 Hct 39 % (35-47) 04/21/17 04:40 MCV 92 fL (80-97) 04/21/17 04:40 MCH 30 pg (27-31) 04/21/17 04:40 MCHC 33 g/dl (31-36) 04/21/17 04:40 RDW 14 % (10.5-15) 04/21/17 04:40 Plt Count 589 10^3/ul (150-450) H 04/21/17 04:40 MPV 9 um3 (7.4-10.4) 04/21/17 04:40 Immature Gran % (Auto) 1 % (0-9) 04/17/17 06:36 Neut % (Auto) 62.1 % (38-83) 04/21/17 04:40 Lymph % (Auto) 21.6 % (25-47) L 04/21/17 04:40 Ogle % (Auto) 12.2 % (1-9) H 04/21/17 04:40 Eos % (Auto) 3.2 % (0-6) 04/21/17 04:40 Baso % (Auto) 0.9 % (0-2) 04/21/17 04:40 Absolute Neuts (auto) 8.5 10^3/ul (1.5-7.7) H 04/21/17 04:40 Absolute Lymphs (auto) 2.9 10^3/ul (1.0-4.8) 04/21/17 04:40 Absolute Monos (auto) 1.7 10^3/ul (0-0.8) H 04/21/17 04:40 Absolute Eos (auto) 0.4 10^3/ul (0-0.6) 04/21/17 04:40 Absolute Basos (auto) 0.1 10^3/ul (0-0.2) 04/21/17 04:40 Absolute Nucleated RBC 0.05 10^3/ul 04/21/17 04:40 Neutrophils % 66 % (38-83) 04/17/17 06:36 Band Neutrophils % 1 % (0-8) 04/14/17 16:15 Lymphocytes % 18 % (25-47) L 04/17/17 06:36 Reactive Lymphs % 3 % (0-6) 04/16/17 05:30 Monocytes % 15 % (0-13) H 04/17/17 06:36 Eosinophils % 6 % (0-6) 04/16/17 05:30 Myelocytes % 1 % (0-1) 04/17/17 06:36 Nucleated RBC % 0.4 04/21/17 04:40 Normal RBC Morphology Normal (Normal) 04/17/17 06:36 Hem Pathologist Commnt 04/17/17 06:36 INR (Anticoag Therapy) 1.12 (0.77-1.02) H 04/24/17 18:58 Patient Temperature Not Reportable 04/25/17 09:45 ABG pH 7.39 (7.35-7.45) 04/25/17 10:58 ABG pH (Temp Correct) Not Reportable 04/25/17 09:45 ABG pCO2 64 mmHg (35-45) H 04/25/17 10:58 ABG pCO2 (Temp Corrct Not Reportable 04/25/17 09:45 ABG pO2 63 mmHg (80-100) L 04/25/17 10:58 ABG pO2 (Temp Correct Not Reportable 04/25/17 09:45 ABG HCO3 33.6 mmol/L (19-31) H 04/25/17 10:58 ABG O2 Saturation 94.7 % (95-98) L 04/25/17 10:58 ABG Base Excess 11.2 (-2.0-2.0) H 04/25/17 10:58 Respiration Rate Not Reportable 04/25/17 09:45 O2 Delivery Device nasal cannula 2 lpm 04/25/17 09:45 Ventilator Type Not Reportable 04/25/17 09:45 Vent Mode Not Reportable 04/25/17 09:45 FiO2 Not Reportable 04/25/17 09:45 Inspiratory Time Not Reportable 04/25/17 09:45 PEEP Not Reportable 04/25/17 09:45 Pressure Support Not Reportable 04/25/17 09:45 Pressure Control Not Reportable 04/25/17 09:45 EPAP Not Reportable 04/25/17 09:45 IPAP Not Reportable 04/25/17 09:45 BiPAP Not Reportable 04/25/17 09:45 Sodium 140 mmol/L (133-145) 04/22/17 04:21 Potassium 4.5 mmol/L (3.5-5.0) 04/22/17 04:21 Chloride 96 mmol/L (101-111) L 04/22/17 04:21 Carbon Dioxide 41 mmol/L (22-32) H* 04/22/17 04:21 Anion Gap 3 mmol/L (2-11) 04/22/17 04:21 BUN 30 mg/dL (6-24) H 04/22/17 04:21 Creatinine 1.14 mg/dL (0.51-0.95) H 04/22/17 04:21 Est GFR ( Amer) 59.8 (>60) 04/22/17 04:21 Est GFR (Non-Af Amer) 46.5 (>60) 04/22/17 04:21 BUN/Creatinine Ratio 26.3 (8-20) H 04/22/17 04:21 Glucose 124 mg/dL (70-100) H 04/22/17 04:21 POC Glucose (mg/dL) 225 mg/dL (70-100) H 04/25/17 12:09 Lactic Acid 1.9 mmol/L (0.5-2.0) 04/14/17 16:15 Calcium 9.7 mg/dL (8.6-10.3) 04/22/17 04:21 Magnesium 2.0 mg/dL (1.9-2.7) 04/22/17 04:21 Total Bilirubin 0.30 mg/dL (0.2-1.0) 04/14/17 16:15 AST 16 U/L (13-39) 04/14/17 16:15 ALT 12 U/L (7-52) 04/14/17 16:15 Alkaline Phosphatase 93 U/L (34-104) 04/14/17 16:15 Troponin I 0.01 ng/mL (<0.04) 04/14/17 16:15 C-Reactive Protein 49.11 mg/L (< 5.00) H 04/14/17 16:15 B-Natriuretic Peptide 74 pg/mL (-100) 04/14/17 16:15 Total Protein 7.9 g/dL (6.4-8.9) 04/14/17 16:15 Albumin 3.4 g/dL (3.2-5.2) 04/14/17 16:15 Globulin 4.5 g/dL (2-4) H 04/14/17 16:15 Albumin/Globulin Ratio 0.8 (1-3) L 04/14/17 16:15 Procalcitonin 0.1 ng/mL (<0.6) 04/14/17 18:53 Influenza A (Rapid) Negative (Negative) 04/14/17 16:39 Influenza B (Rapid) Negative (Negative) 04/14/17 16:39 - Objective Active Medications: Acetaminophen (Tylenol Tab*) 650 mg PO Q4H PRN PRN Reason: FEVER/PAIN Last Admin: 04/24/17 23:47 Dose: 650 mg Hydrocodone Bitart/Acetaminophen ([place] 5-325 Tab*) 2 tab PO Q4H PRN PRN Reason: PAIN Last Admin: 04/25/17 02:38 Dose: 2 tab Albuterol (Ventolin 2.5 Mg/3 Ml Neb.Trisha*) 2.5 mg INH Q2H PRN PRN Reason: SOB/WHEEZING Last Admin: 04/17/17 20:25 Dose: 2.5 mg Atorvastatin Calcium (Lipitor*) 20 mg PO DAILY [facility] Last Admin: 04/25/17 09:20 Dose: 20 mg Dextrose (D50w Syringe 50 Ml*) 12.5 gm IV PUSH .FOR FS < 60 - SS PRN PRN Reason: FS < 60 Ferrous Sulfate (Ferrous Sulfate Tab*) 325 mg PO DAILY [facility] Last Admin: 04/25/17 09:20 Dose: 325 mg Insulin Glargine (Lantus(*)) 20 units SUBCUT BID [facility] Last Admin: 04/25/17 09:20 Dose: 20 units Insulin Human Lispro (Humalog*) 0 units SUBCUT AC [facility] PRN Reason: Protocol Last Admin: 04/25/17 12:50 Dose: 6 unit Melatonin (Melatonin (Nf)) 3 mg PO BEDTIME PRN; Protocol PRN Reason: Sleep Last Admin: 04/20/17 20:51 Dose: 3 mg Mometasone Furoate/Formoterol Fumar (Dulera 200/5 Mdi*) 2 puff INH BID [facility] Last Admin: 04/25/17 09:21 Dose: 2 puff Multi-Ingredient Liniment/Rub (Riki Valera*) 1 applic TOPICAL TID [facility] Last Admin: 04/25/17 09:21 Dose: 1 applic Omeprazole (Prilosec Cap*) 20 mg PO DAILY [facility] Last Admin: 04/25/17 09:20 Dose: 20 mg Ondansetron HCl (Zofran Inj*) 4 mg IV Q6H PRN PRN Reason: NAUSEA Oxybutynin Chloride (Ditropan Xl Tab*) 10 mg PO DAILY [facility] Last Admin: 04/25/17 09:20 Dose: 10 mg Prednisone (Deltasone Tab*) 5 mg PO DAILY [facility] Last Admin: 04/25/17 09:21 Dose: 5 mg Pregabalin (Lyrica Cap(*)) 100 mg PO BID [facility] Last Admin: 04/25/17 09:20 Dose: 100 mg Senna (Senokot Tab*) 2 tab PO BEDTIME [facility] Last Admin: 04/24/17 21:25 Dose: 2 tab Warfarin Sodium (Coumadin Tab(*)) 5 mg PO DAILY@1700 [facility] PRN Reason: Protocol Vital Signs: Vital Signs: Temp Pulse Resp BP Pulse Ox 97.5 F 64 20 121/54 96 04/25/17 07:22 04/25/17 11:02 04/25/17 12:46 04/25/17 07:22 04/25/17 11:03 Patient Weight: Weight 265 lb 8 oz Intake and Output: Intake & Output 04/23/17 04/24/17 04/25/1717 06:59 06:59 06:59 06:59 Intake Total 1729 1281 1725 230 Output Total 700 1455 895 Balance 1029 -174 830 230 Weight 267 lb 14.4 oz 267 lb 265 lb 8 oz Intake: IV Fluids 75 50 cefepime 75 50 IVPB 54 41 cefepime 54 41 Oral 1600 1190 1725 230 Output: Urine 0 175 Lujan 700 1455 720 Other: Date of Last Bowel 0 Movement # Bowel Movements 0 0 Estimated Stool Amount Small ADLs: Meal Record Start: 04/14/17 16: 45 Freq: DAILY@0900,1400,1800 Status: Inactive Protocol: Document 04/14/17 18:00 [id number] (Rec: 04/14/17 18:56 EZQ3550 TELE-C05) Document 04/15/17 09:00 XCL1965 (Rec: 04/15/17 15:05 AMZ2610 TELE-C08) Document 04/15/17 14:00 EJH8425 (Rec: 04/15/17 15:07 LTE1001 TELE-C08) Document 04/15/17 18:00 RAA2807 (Rec: 04/15/17 18:53 VSU2137 TELE-C01) Document 04/16/17 09:17 APA7306 (Rec: 04/16/17 09:18 UMR7413 TELE-C08) Document 04/16/17 13:51 ORG5907 (Rec: 04/16/17 13:53 PKU6984 TELE-C13) Document 04/16/17 18:00 PJL6956 (Rec: 04/16/17 18:10 TNA0956 TELE-C03) Document 04/17/17 09:00 SXN2488 (Rec: 04/17/17 10:17 TNV3700 TELE-C09) Document 04/17/17 14:00 CFC8929 (Rec: 04/17/17 14:15 ELB0059 TELE-C09) Document 04/17/17 18:00 AQS0988 (Rec: 04/17/17 23:08 YAB9163 TELE-C01) Document 04/17/17 22:00 RHN4443 (Rec: 04/17/17 23:08 ZFM1531 TELE-C01) Document 04/18/17 08:46 HCU0184 (Rec: 04/18/17 08:46 YZY2212 TELE-C08) Document 04/18/17 12:46 DAT6215 (Rec: 04/18/17 12:46 YCX8409 TELE-C01) Document 04/18/17 18:00 UNH7939 (Rec: 04/18/17 18:53 IOA3849 TELE-C01) Document 04/19/17 09:00 AIB4268 (Rec: 04/19/17 10:40 VDC4467 TELE-C11) Document 04/19/17 13:41 UYW0956 (Rec: 04/19/17 13:47 QHX2214 TELE-C11) Document 04/19/17 18:00 YHI0058 (Rec: 04/19/17 21:52 WJH5086 TELE-C01) Document 04/20/17 09:00 CNF3369 (Rec: 04/20/17 12:01 IIA6873 TELE-C03) Document 04/20/17 14:00 VAP7142 (Rec: 04/20/17 14:26 FQR6919 TELE-C03) Document 04/20/17 17:50 FAZ8702 (Rec: 04/20/17 17:50 IMT1156 TELE-C08) Document 04/21/17 12:39 MEV0351 (Rec: 04/21/17 12:39 EGQ5649 TELE-C06) Document 04/21/17 18:00 XGT8327 (Rec: 04/21/17 18:32 GPP9123 TELE-C10) Document 04/22/17 09:00 EGU0093 (Rec: 04/22/17 11:38 VAQ6297 TELE-C11) Document 04/22/17 13:35 GTS3439 (Rec: 04/22/17 13:38 NCB2824 TELE-C11) Document 04/22/17 18:00 BPY1539 (Rec: 04/22/17 21:53 YXE6774 TELE-C01) Document 04/23/17 09:00 FKI0802 (Rec: 04/23/17 14:22 MIV7160 TELE-C01) Document 04/23/17 14:00 RLE3142 (Rec: 04/23/17 14:24 CWQ7007 TELE-C01) Document 04/23/17 18:00 DSC4903 (Rec: 04/23/17 22:20 LVN3034 TELE-C01) Document 04/24/17 09:34 BOR4743 (Rec: 04/24/17 09:34 YDD6685 SSU-C19) ADLs: Meal Record Start: 04/24/17 10: 34 Freq: Status: Active Protocol: Created 04/24/17 10:34 QIM0238 (Rec: 04/24/17 10:34 APR5513 SSU-C09) Document 04/24/17 14:34 LEK6168 (Rec: 04/24/17 14:35 XAE7934 SSU-C19) Document 04/24/17 18:17 EDW0635 (Rec: 04/24/17 18:18 AWI3811 SSU-C04) Document 04/25/17 09:57 YNA0704 (Rec: 04/25/17 09:57 ZAT0949 SSU-C04) Intake and Output Start: 04/14/17 16: 45 Freq: DAILY@0600,1400,2200 Status: Inactive Protocol: Document 04/14/17 21:56 DRV8809 (Rec: 04/14/17 21:57 TSE6527 TELE-C05) Document 04/15/17 06:00 FUE0438 (Rec: 04/15/17 06:15 PJV3130 TELE-C10) Document 04/15/17 14:00 FQG7946 (Rec: 04/15/17 15:07 PQB9250 TELE-C08) Document 04/15/17 22:00 XRH3062 (Rec: 04/15/17 22:43 VGQ3820 TELE-C01) Document 04/16/17 06:00 UQI2945 (Rec: 04/16/17 07:03 TLF3940 TELE-C10) Document 04/16/17 13:51 BDL0680 (Rec: 04/16/17 13:53 NMO6934 TELE-C13) Document 04/16/17 22:00 NPZ1278 (Rec: 04/16/17 22:37 MMP5931 TELE-C01) Document 04/17/17 06:00 UIP1685 (Rec: 04/17/17 06:11 ILP6565 TELE-C10) Document 04/17/17 14:00 OLD2586 (Rec: 04/17/17 14:15 UFO3111 TELE-C09) Document 12/13/17 22:00 JHE9693 (Rec: 04/17/17 22:36 QKJ8237 TELE-C07) Document 04/17/17 23:16 TGC0379 (Rec: 04/17/17 23:16 YDJ4490 TELE-C01) Document 04/18/17 06:00 CWC9738 (Rec: 04/18/17 06:24 KJI0794 TELE-C34) Document 04/18/17 14:03 QMV2620 (Rec: 04/18/17 14:03 DBU9073 TELE-C01) Document 04/18/17 22:00 QQE9483 (Rec: 04/18/17 22:18 NTP0301 TELE-C01) Document 04/19/17 06:00 EMI7735 (Rec: 04/19/17 06:07 VRQ7223 TELE-C11) Document 04/19/17 13:41 OZU0569 (Rec: 04/19/17 13:47 EQE1486 TELE-C11) Document 04/19/17 22:00 ZQW0711 (Rec: 04/19/17 22:25 UAP1886 TELE-C01) Document 04/20/17 01:17 OPP3315 (Rec: 04/20/17 01:17 CLU9301 [id number]) Document 04/20/17 14:00 DWS9920 (Rec: 04/20/17 14:26 TFO5552 TELE-C03) Document 04/20/17 22:00 KHZ4239 (Rec: 04/20/17 22:13 BDT6858 TELE-C01) Document 04/21/17 06:00 GPJ6848 (Rec: 04/21/17 06:30 WXM3178 TELE-C03) Document 04/21/17 08:17 CJP3652 (Rec: 04/21/17 08:17 RJM6102 [facility]-RDC2) Document 04/21/17 14:00 OVO8984 (Rec: 04/21/17 15:26 VTB7607 TELE-C01) Document 04/21/17 21:49 UEH0875 (Rec: 04/21/17 21:52 DHB7291 TELE-C10) Document 04/22/17 05:51 CNG7515 (Rec: 04/22/17 05:52 TEE6583 TELE-C03) Document 04/22/17 13:35 QTQ0609 (Rec: 04/22/17 13:38 JNP0649 TELE-C11) Document 04/22/17 22:00 ZUL7285 (Rec: 04/22/17 23:48 QLD7983 TELE-C01) Document 04/23/17 06:00 UPT3177 (Rec: 04/23/17 06:24 SGY4156 TELE-C10) Document 04/23/17 14:00 UAI0925 (Rec: 04/23/17 14:24 AXP1815 TELE-C01) Document 04/23/17 22:00 APV2122 (Rec: 04/23/17 22:28 ZGV7959 TELE-C01) Document 04/24/17 05:31 TJV3102 (Rec: 04/24/17 05:31 OZM5050 SSU-C11) Intake and Output Start: 04/24/17 10: 34 Freq: DAILY@0600,1400,2200 Status: Active Protocol: Created 04/24/17 10:34 NTV0806 (Rec: 04/24/17 10:34 BMA3462 SSU-C09) Document 04/24/17 14:34 LBG3906 (Rec: 04/24/17 14:35 EFQ8023 SSU-C19) Document 04/24/17 21:58 DFN6156 (Rec: 04/24/17 21:59 XOB3785 SSU-C04) Document 04/25/17 05:16 VQI2292 (Rec: 04/25/17 05:18 NVI1415 SSU-C09) General Impression: Obese woman visibly dyspneic. Head: Symmetrical Eyes: No Scleral Icterus Ears/Nose/Mouth/Throat: Mucous Membranes Moist Neck: Trachea Midline Cardiovascular: NL Sounds; No Murmurs; No JVD, RRR, - - trace LE edema Respiratory: Symmetrical Chest Expansion and Respiratory Effort, Clear to Auscultation Abdominal: NL Sounds; No Tenderness; No Distention Extremities: No Clubbing, Cyanosis Neurological: Alert and Oriented x 3 - Assessment Assessment: I met with this patient and she reiterated her desire to remain at [facility] which has been her home for over 2 years, and she realizes she may have less time because she refuses to use a Trilogy ventilator. She also reiterated her desire to never be intubated and placed on mechanical ventilation, and understands that hospitalization at this point is unlikely to offer her any benefits. I explained the Medicare Hospice benefit and she is interested in having services at [facility] which will allow her to avoid further hospitalizations. She does meet criteria for hospice services on the basis of her COPD and chronic hypoxic hypercarbic respiratory failure. Our hospice nurses will work with the patient to maximize her use of BiPAP and palliative measures. Please refer this patient to [facility] at or before the time of discharge so that the referral will be in place when she arrives there. Thanks for asking for palliative input! - Plan Consult Plan (MU): Hospice - Time On Unit Date of Evaluation: 04/25/17 Hospice Consult Time in: 13:30 Hospice Consult Time Out: 14:15 Hospice Consult Time Total: 45
[2017-04-25] MEDS ORDERED: Warfarin TAB(*) 5 MG PO SCH (17:00)
[2017-04-25] MEDS: Senna TAB PO SCH (20:24)
[2017-04-26] MEDS: HYDROcodone/ACETAMIN 5-325 MG* 1 TAB PO PRN (05:13)
[2017-04-26] MEDS: Ferrous Sulfate TAB* 325 MG PO SCH (09:04)
[2017-04-26] MEDS: Atorvastatin* 20 MG TAB PO SCH (09:04)
[2017-04-26] MEDS: Mometasone/Formoter 200/5 MDI INH SCH (09:04)
[2017-04-26] MEDS: Omeprazole CAP* 20 MG PO SCH (09:04)
[2017-04-26] MEDS: Oxybutynin XL TAB* 5 MG PO SCH (09:04)
[2017-04-26] MEDS: Pregabalin CAP(*) 100 MG PO SCH (09:05)
[2017-04-26] MEDS: Insulin GLARGINE(*) 1 UNITS UNIT SUBCUT SCH (09:05)
[2017-04-26] MEDS: Insulin LISPRO* 1 UNITS UNIT SUBCUT SCH ×2 (09:06→12:38)
[2017-04-26] MEDS: Analgesic BALM* 114 GM TOPICAL SCH ×2 (09:06→14:25)
[2017-04-26] MEDS: predniSONE TAB* 5 MG PO SCH (09:10)
--- NOTE | 2017-04-26 10:38 | PN ---
Subjective Date of Service: 04/26/17 Interval History: Pt is feeling well. She is happy about her decision to go back to [facility] with BiPAP (she may not use as she is supposed to) and be signed onto hospice. She denies any SOB. No pain. Family History: Unchanged from Admission Social History: Unchanged from Admission Past Medical History: Unchanged from Admission Objective Active Medications: Acetaminophen (Tylenol Tab*) 650 mg PO Q4H PRN PRN Reason: FEVER/PAIN Last Admin: 04/24/17 23:47 Dose: 650 mg Hydrocodone Bitart/Acetaminophen ([place] 5-325 Tab*) 2 tab PO Q4H PRN PRN Reason: PAIN Last Admin: 04/26/17 05:13 Dose: 2 tab Albuterol (Ventolin 2.5 Mg/3 Ml Neb.Trisha*) 2.5 mg INH Q2H PRN PRN Reason: SOB/WHEEZING Last Admin: 04/17/17 20:25 Dose: 2.5 mg Atorvastatin Calcium (Lipitor*) 20 mg PO DAILY [facility] Last Admin: 04/26/17 09:04 Dose: 20 mg Dextrose (D50w Syringe 50 Ml*) 12.5 gm IV PUSH .FOR FS < 60 - SS PRN PRN Reason: FS < 60 Ferrous Sulfate (Ferrous Sulfate Tab*) 325 mg PO DAILY [facility] Last Admin: 04/26/17 09:04 Dose: 325 mg Insulin Glargine (Lantus(*)) 20 units SUBCUT BID [facility] Last Admin: 04/26/17 09:05 Dose: 20 units Insulin Human Lispro (Humalog*) 0 units SUBCUT AC [facility] PRN Reason: Protocol Last Admin: 04/26/17 09:06 Dose: 3 unit Melatonin (Melatonin (Nf)) 3 mg PO BEDTIME PRN; Protocol PRN Reason: Sleep Last Admin: 04/20/17 20:51 Dose: 3 mg Mometasone Furoate/Formoterol Fumar (Dulera 200/5 Mdi*) 2 puff INH BID [facility] Last Admin: 04/26/17 09:04 Dose: 2 puff Multi-Ingredient Liniment/Rub (Riki Valera*) 1 applic TOPICAL TID [facility] Last Admin: 04/26/17 09:06 Dose: 1 applic Omeprazole (Prilosec Cap*) 20 mg PO DAILY [facility] Last Admin: 04/26/17 09:04 Dose: 20 mg Ondansetron HCl (Zofran Inj*) 4 mg IV Q6H PRN PRN Reason: NAUSEA Oxybutynin Chloride (Ditropan Xl Tab*) 10 mg PO DAILY [facility] Last Admin: 04/26/17 09:04 Dose: 10 mg Prednisone (Deltasone Tab*) 5 mg PO DAILY [facility] Last Admin: 04/26/17 09:10 Dose: 5 mg Pregabalin (Lyrica Cap(*)) 100 mg PO BID [facility] Last Admin: 04/26/17 09:05 Dose: 100 mg Senna (Senokot Tab*) 2 tab PO BEDTIME [facility] Last Admin: 04/25/17 20:24 Dose: 2 tab Warfarin Sodium (Coumadin Tab(*)) 5 mg PO DAILY@1700 [facility] PRN Reason: Protocol Last Admin: 04/25/17 16:54 Dose: 5 mg Vital Signs - 8 hr 04/26/17 04/26/17 04/26/17 03:14 05:13 07:27 Temperature 98.3 F 97.6 F Pulse Rate 72 70 Respiratory 16 16 16 Rate Blood Pressure 137/58 136/52 (mmHg) O2 Sat by Pulse 94 95 Oximetry 04/26/17 04/26/17 04/26/17 08:00 08:02 09:05 Temperature Pulse Rate Respiratory 20 20 18 Rate Blood Pressure (mmHg) O2 Sat by Pulse Oximetry Oxygen Devices in Use Now: Nasal Cannula Appearance: Elderly female sitting up in a recliner, NAD Eyes: No Scleral Icterus Ears/Nose/Mouth/Throat: Mucous Membranes Moist Respiratory: Symmetrical Chest Expansion and Respiratory Effort, Clear to Auscultation - with faint bibasilar crackles Cardiovascular: NL Sounds; No Murmurs; No JVD, RRR, - - trace-1+ LE edema Abdominal: NL Sounds; No Tenderness; No Distention Extremities: No Clubbing, Cyanosis Skin: No Rash or Ulcers, No Nodules or Sclerosis Neurological: Alert and Oriented x 3 Result Diagrams: 04/21/17 04:40 04/22/17 04:21 Additional Lab and Data: . Microbiology and Other Data: Microbiology 04/15/17 01:32 Legionella Urinary Antigen - Final Urine Negative Legionella Streptococcus pneumoniae Ag Screen - Final Negative S. pneumo Antigen Assess/Plan/Problems-Billing Mrs. Munoz is a 76 yo F with PMHx of morbid obesity, type-2 DM, HTN, diastolic CHF, CKD stage 3 and recent admission for pneumonia, who presents 24h after discharge with c/o dyspnea and fever. - Patient Problems (1) Sepsis Current Visit: Yes Status: Acute Priority: High Comment: Present on admission and now resolved. (2) HCAP (healthcare-associated pneumonia) Current Visit: Yes Status: Acute Priority: High Code(s): J18.9 - PNEUMONIA , UNSPECIFIED ORGANISM SNOMED Code(s): 547617045 Comment: Pt has completed 9 days of therapy. (3) Hypercapnic respiratory failure, chronic Current Visit: Yes Status: Chronic Priority: High Comment: Plan is for the patient to go to [facility] today with BiPAP. She understands that BiPAP is not the best option to treat her chronic hypercapnic respiratory failure. She is accepting of the hospice referal. (4) Afib Current Visit: Yes Status: Acute Priority: High Code(s): I48.91 - UNSPECIFIED ATRIAL FIBRILLATION SNOMED Code(s): 13863045 Comment: Repeat INR today. (5) CKD (chronic kidney disease) stage 3, GFR 30-59 ml/min Current Visit: Yes Status: Acute Priority: High Code(s): N18.3 - CHRONIC KIDNEY DISEASE, STAGE 3 (MODERATE) SNOMED Code(s): 850141689 Comment: Creatinine is stable despite diuresis. (6) Type 2 diabetes mellitus Current Visit: Yes Status: Acute Comment: Sugars are acceptable. Continue current insulin regimen. (7) DVT prophylaxis Current Visit: Yes Status: Acute Code(s): NWC8444 - SNOMED Code(s): 720167918 Comment: SQ heparin until INR therapeutic (8) DNR (do not resuscitate) Current Visit: Yes Status: Acute Priority: High Status and Disposition: Inpatient.
--- NOTE | 2017-04-26 14:08 | DS ---
CC: DISCHARGE SUMMARY: DATE OF ADMISSION: 04/14/17 DATE OF DISCHARGE: 04/26/17 PRIMARY CARE PROVIDER: PRINCIPAL DIAGNOSES: 1. Sepsis secondary to healthcare-associated pneumonia. 2. Chronic hypercarbic respiratory failure. 3. Type 2 diabetes. 4. Chronic leukocytosis and thrombocytosis. SECONDARY DIAGNOSES: 1. Atrial fibrillation. 2. Stage 3 chronic kidney disease. DISCHARGE MEDICATIONS: 1. Vitamin C 250 mg p.o. daily. 2. Calcium plus D, 1 tab p.o. daily. 3. Ferrous sulfate 325 mg p.o. daily. 4. Toviaz 8 mg p.o. daily. 5. Heparin 5000 units subcutaneous q.8 hours x3 days or until INR is therapeutic. 6. Levemir 20 units subcutaneous twice daily. 7. Melatonin 30 mg p.o. q.h.s. p.r.n. insomnia. 8. Omeprazole 20 mg p.o. daily. 9. MiraLAX 17 g p.o. daily. 10. Senokot S 2 tabs p.o. q.h.s. 11. Lyrica 100 mg p.o. b.i.d. 12. Torsemide 20 mg p.o. daily. 13. Simvastatin 40 mg p.o. daily. 14. Coumadin 6 mg p.o. daily. 15. Prednisone 5 mg p.o. daily. 16. [place] 5/325 two tabs p.o. q.4 hours p.r.n. pain. 17. Vitamin D 5000 units p.o. weekly. 18. Dulera 200/5 two puffs inhaled twice daily. 19. Albuterol neb, 1 neb inhaled q.2 hours p.r.n. shortness of breath. HOSPITAL COURSE: Ms. Munoz is 76-year-old female who was initially hospitalized from 04/11/17 through 04/13/17 with sepsis secondary to bibasilar pneumonia. Patient at that time was admitted with leukoc ytosis and fever and concern for sepsis; however, she was 24 hours without fever and discharged back to [facility], [place]. The day after discharge, the patient again developed fever up to 101.4 and was therefor e brought back to the emergency room where she was again admitted for sepsis secondary to healthcare- associated pneumonia. Of note, the patient has a chronic leukocytosis which is one of the qualifiers used to diagnose sepsis on this admission. Additionally, however, the patient was tachycardic. The patient was treated with vancomycin and cefepime. The patient completed several days of vancomycin and 9 days of cefepime with good response. The patient is now on her home O2 requirements. The damaso ent, during the course of this hospitalization, was also diagnosed with chronic hypercapnic respirato ry failure. It was recommended that the patient be placed on Trilogy with sleep as she did not have improvement in her ABG on BiPAP. The patient, however, refuses to go to the only facility near here that will accept the Trilogy machine. The patient understands that it is likely she will have recurr ent hospitalizations related to hypercapnic respiratory failure and BiPAP is a subpar therapy. The p atient understands the recommendation for Trilogy and makes an informed decision to refuse this and g o back to [facility], [place] with BiPAP alone. The patient, because of this decision, has also agreed to hosp ice referral to prevent the recurrent admissions that are expected by refusing this Trilogy. At this point, the patient is stable and ready to return back to [facility], [place]. A hospice referral has been mad e prior to her discharge from the hospital. In terms of the patient's type 2 diabetes, the patient's insulin dose was increased to 20 units subcu taneous twice daily to improve her blood sugar control. Her sugars have been under acceptable contro l ranging in the 100s to 200 range. We will not aim for any tighter control than this as low blood s ugars will be more detrimental than high, especially given the patient will be signed on to hospice. The patient also has a history of atrial fibrillation. Her INR on admission was subtherapeutic; barrett yadi, then went supratherapeutic and again subtherapeutic when her Coumadin dose was stopped. Her INR today is pending at the time of this dictation, though she will continue on her usual dose of Coumad in. She will need followup INR on 05/01/17 to ensure that her INR is therapeutic. While her INR is subtherapeutic, she will continue on subcu heparin 5000 units q.8 hours. FOLLOWUP CONCERNS: The patient is being discharged to [facility] [place] today, 04/26/17. She is to have an I NR on 05/01/17. ACTIVITY LEVEL: As tolerated. DIET: Diabetic. CONDITION ON DISCHARGE: Stable. Please note, if hospice does not contact the facility to do a sign on, please contact them as the pat ient is hospice eligible and has agreed to signing with hospice. TIME SPENT: Thirty-five minutes were spent discharging this patient. [id number]/[facility] #: [id number]
[2017-04-26 15:18] VITALS: BP 152/60
== END 2017-04-26 14:45 | DRG 871 ==
LOC: ED 14:40 → MEDTELE 15:49 → OBSVTOIN 17:20 → SSU 04-23 23:10
PROVIDERS: ADMIT Internal Medicine; ATTEND Hospitalist
PROC: 5A09357 Assistance with Respiratory Ventilation, Less than 24 Consecutive Hours, Continuous Positive Airway Pressure (ICD-10-PCS; principal; 2017-04-22)
DX: A41.9 Sepsis, unspecified organism (principal); J18.9 Pneumonia, unspecified organism; J96.11 Chronic respiratory failure with hypoxia; E11.22 Type 2 diabetes mellitus with diabetic chronic kidney disease; I13.0 Hypertensive heart and chronic kidney disease with heart failure and stage 1 through stage 4 chronic kidney disease, or unspecified chronic kidney disease; J96.12 Chronic respiratory failure with hypercapnia; I50.32 Chronic diastolic (congestive) heart failure; J44.0 Chronic obstructive pulmonary disease with (acute) lower respiratory infection; Z68.42 Body mass index [BMI] 45.0-49.9, adult; I48.91 Unspecified atrial fibrillation; I45.10 Unspecified right bundle-branch block; E66.01 Morbid (severe) obesity due to excess calories; N18.3 Chronic kidney disease, stage 3 (moderate); K21.9 Gastro-esophageal reflux disease without esophagitis; F32.9 Major depressive disorder, single episode, unspecified; N32.81 Overactive bladder; Z66 Do not resuscitate; Z88.8 Allergy status to other drugs, medicaments and biological substances; Z90.710 Acquired absence of both cervix and uterus; Z82.3 Family history of stroke; Z87.891 Personal history of nicotine dependence; Z82.49 Family history of ischemic heart disease and other diseases of the circulatory system; Z79.4 Long term (current) use of insulin; Z79.01 Long term (current) use of anticoagulants
CPT/HCPCS: 36415; 36600; 71010; 71250; 74220; 80048; 80053; 82803; 83605; 83735; 83880; 84145; 84484; 85025; 85060; 85610; 86140; 87040; 87077; 87150; 87205; 87502; 87899; 93005; 93306; 94640; 94660; 94760; A9270-GY; C8929; J0456; J0692; J1644; J1940; J3370; J7512

== ENCOUNTER 2017-07-11 23:27 | Inpatient (IN) | payer MEDICAID, MEDICARE ==
[2017-07-11] MEDS ORDERED: Acetaminophen TAB* 325 MG PO ONE (23:56)
[2017-07-11] MEDS ORDERED: Vancomycin(*) 1,000 MG in NS 0.9% 250 ML* 250 ML IVPB ONE (23:59)
[2017-07-11] MEDS ORDERED: NS 0.9% 1000 ML* 1,000 ML IV ONE (23:59)
[2017-07-11] MEDS ORDERED: Piperacillin/Tazobac ADVAN(*) 3.375 GM in NS 0.9% 100 ML* 100 ML IVPB ONE (23:59)
[2017-07-12] MEDS ORDERED: Albuterol/Ipratropium NEB.SOL* Albuterol 2.5 MG/Ipratropium 0.5 MG 3 ML INH ONE
[2017-07-12] MEDS ORDERED: Albuterol 2.5 MG/3 ML NEB.SOL* (0.083%) INH SCH
[2017-07-12] MEDS ORDERED: Magnesium Sulfate 2 GM IV* 2 GM/50 ML BAG IVPB ONE (00:08)
[2017-07-12] MEDS ORDERED: methylPREDNISolone 125 MG* 2 ML VIAL IV ONE (00:09)
[2017-07-12 01:06] LABS: ABS Basophils 0.2 10^3/ul (0-0.2); ABS Eosinophils 0.2 10^3/ul (0-0.6); ABS Lymphocytes 3.1 10^3/ul (1.0-4.8); ABS Monocytes 1.5 10^3/ul (0-0.8); ABS Nucleated RBC 0.1 10^3/ul; Eosinophil % 1.6 % (0-6); Hematocrit 44 % (35-47); Hemoglobin 13.8 g/dl (12.0-16.0); Lymphocyte % 20.5 % (25-47); Mean Corpuscular HGB Conc 32 g/dl (31-36); Mean Corpuscular Hemoglobin 31 pg (27-31); Mean Corpuscular Volume 97 fL (80-97); Mean Platelet Volume 10 um3 (7.4-10.4); Nucleated Red Blood Cells % 0.7; Platelet Count 372 10^3/ul (150-450); Red Blood Count 4.49 10^6/ul (4.0-5.4); Red Cell Distribution Width 15 % (10.5-15); White Blood Count 14.9 10^3/ul (3.5-10.8)
[2017-07-12 01:16] LABS: INR 1.5 (0.77-1.02)
[2017-07-12 01:24] LABS: EGFR Non-African American 47.4 (>60)
[2017-07-12] MEDS ORDERED: Furosemide IV* 10 MG/ML VIAL (40 MG) IV ONE (03:05)
--- NOTE | 2017-07-12 04:41 | ED ---
Suzette Millan Nilda, scribed for Krystian Andino MD on 07/11/17 at 2359 . Respiratory - HPI Summary HPI Summary: This patient is a 76 year old F BIBA from [facility] with a chief complaint of constant SOB for the past 3 weeks, which has worsened tonight. The patient rates the pain 7/10 in severity. Symptoms aggravated and alleviated by nothing. Patient reports chills and chronic erythematous edema, but denies cough and pain. Pt states she does not ambulate and uses a wheel chair. - History of Current Complaint Chief Complaint: EDShortnessOfBreath Stated Complaint: DIFFICULTY BREATHING Time Seen by Provider: 07/11/17 23:38 Hx Obtained From: Patient Onset/Duration: Sudden Onset, Lasting Weeks, Still Present Timing: Constant Current Severity: Severe Pain Intensity: 7 Character: Dyspnea at Rest Aggravating Factor(s): Nothing Alleviating Factor(s): Nothing Associated Signs and Symptoms: SOB, Edema, Chills - Allergy/Home Medications Allergies/Adverse Reactions: Allergies Allergy/AdvReac Type Severity Reaction Status Date / Time cetirizine Allergy Unknown Verified 07/12/17 01:03 Reaction Details PMH/Surg Hx/FS Hx/Imm Hx Endocrine/Hematology History: Reports: Hx Diabetes - DM II requries insulin Cardiovascular History: Reports: Hx Hypertension, Other Cardiovascular Problems/ Disorders - Afib, Chronic diastolic heart failure Respiratory History: Reports: Hx Chronic Obstructive Pulmonary Disease (COPD) GI History: Reports: Hx Gastroesophageal Reflux Disease History: Comment Only: Other Problems/Disorders - CKD stage 3 Sensory History: Reports: Hx Contacts or Glasses - glasses Denies: Hx Hearing Aid Opthamlomology History: Reports: Hx Contacts or Glasses - glasses Psychiatric History: Reports: Hx Depression - Surgical History Surgery Procedure, Year, and Place: hysterectomy. left hip surgery Hx Anesthesia Reactions: No - Immunization History Date of Tetanus Vaccine: Unk Date of Influenza Vaccine: Fall 2014 Infectious Disease History: No Infectious Disease History: Denies: Traveled Outside the [place] in Last 30 Days - Family History Known Family History: Positive: Diabetes - Social History [facility]: [facility] Alcohol Use: None Substance Use Type: Reports: None Smoking Status (MU): Former Smoker Have You Smoked in the Last Year: No Review of Systems Positive: Chills, Other - negative pain Positive: Shortness Of Breath. Negative: Cough Positive: Edema - erythematous All Other Systems Reviewed And Are Negative: Yes Physical Exam - Summary Physical Exam Summary: VITAL SIGNS: Reviewed. GENERAL: Patient is a morbidly obese female who is lying comfortable in the stretcher. Patient is not in any acute respiratory distress. Pt is shivering. HEAD AND FACE: No signs of trauma. No ecchymosis, hematomas or skull depressions. No sinus tenderness. EYES: PERRLA, EOMI x 2, No injected conjunctiva, no nystagmus. EARS: Hearing grossly intact. Ear canals and tympanic membranes are within normal limits. MOUTH: Oropharynx within normal limits. NECK: Supple, trachea is midline, no adenopathy, no JVD, no carotid bruit, no c- spine tenderness, neck with full ROM. CHEST: Symmetric, no tenderness at palpation LUNGS: Clear to auscultation bilaterally. No wheezing or crackles. Decreased breath sounds bilat. CVS: Regular rate and rhythm, S1 and S2 present, no murmurs or gallops appreciated. ABDOMEN: Soft, non-tender. No signs of distention. No rebound no guarding, and no masses palpated. Bowel sounds are normal. EXTREMITIES: FROM in all major joints, no cyanosis or clubbing. Bilat lower extremity edema and redness +3. NEURO: Alert and oriented x 3. No acute neurological deficits. Speech is normal and follows commands. SKIN: Dry and warm Triage Information Reviewed: Yes Vital Signs On Initial Exam: Initial Vitals Temp Pulse Resp BP Pulse Ox 99 F 91 20 155/98 92 07/11/17 23:41 07/11/17 23:41 07/11/17 23:41 07/11/17 23:41 07/11/17 23:41 Vital Signs Reviewed: Yes Diagnostics - Vital Signs Vital Signs Temp Pulse Resp BP Pulse Ox 07/11/17 23:41 99 F 91 20 155/98 92 - Laboratory Result Diagrams: 07/12/17 00:35 07/12/17 00:35 Lab Statement: Any lab studies that have been ordered have been reviewed, and results considered in the medical decision making process. - Radiology CXR Radiology Interpretation Completed By: ED Physician - cardiomegaly, bilat venous congestion, and right lower lobe infiltrate. - EKG 0028 Cardiac Rate: NL EKG Rhythm: Sinus Rhythm - 88 bpm EKG Interpretation: low voltage, R-axis deviation, normal interval, no acute changes. Re-Evaluation - Re-Evaluation First Eval Re-Evaluation Time: 03:27 Comment: Reviewed admission plan, lab and imaging results. Second Eval Re-Evaluation Time: 04:00 Comment: Reviewed with pt her lab work and CXR finding. Pt refused to be admitted to hospital. She wants to go back to care home. Explained risk of leaving including but not limited to exacerbation of condition which could lead to permanent disability, cardiac arrest, and . Pt understands and still wants to go. Recommended to care home was given to give abx for PNA and Lasix. Pt is leaving AMA. Disposition - Course Assessment/Plan: Pt 76 y/o c/o SOB with Hx of COPD and CHF. CXR reveals cardiomegaly, bilat venous congestion, and right lower lobe infiltrate. Consulted with Dr. Luevano (hospitalist) who agreed to see pt in ED. Reviewed with pt her lab work and CXR finding. Pt refused to be admitted to hospital. She wants to go back to care home. Explained risk of leaving including but not limited to exacerbation of condition which could lead to permanent disability, cardiac arrest, and . Pt understands and still wants to go. Recommended to care home was given to give abx for PNA and Lasix. Pt is leaving AMA. Dx COPD, CHF, and PNA. - Diagnoses Provider Diagnoses: COPD (chronic obstructive pulmonary disease), CHF (congestive heart failure), PNA (pneumonia) - Physician Notifications Discussed Care Of Patient With: Monisha Luevano - Hospitalist Time Discussed With Above Provider: 02:24 Instructed by Provider To: MD Will See In ED Discharge - Discharge Plan Condition: Stable Disposition: AGAINST MEDICAL ADVICE Referrals: No Primary Care Phys,NOPCP [Primary Care Provider] - The documentation as recorded by the Suzette sterling Nilda accurately reflects the service I personally performed and the decisions made by me, Krystian Andino MD.
--- NOTE | 2017-07-12 07:49 | RAD ---
INDICATION: Shortness of breath. COMPARISON: Comparison is made with a prior study from April 20, 2017. TECHNIQUE: A portable view of the chest was obtained. FINDINGS: The heart is mildly enlarged and unchanged. There is diffuse prominence of the interstitial markings which have increased and small bilateral pleural effusions. IMPRESSION: FINDINGS MOST CONSISTENT WITH CONGESTIVE HEART FAILURE.
[2017-07-12] MEDS ORDERED: Glycerin ADULT SUPP PR PRN (08:32)
[2017-07-12] MEDS ORDERED: Polyethylene Glycol 3350* 17 GM PACKET PO PRN (08:32)
[2017-07-12] MEDS ORDERED: Magnesium Hydroxide LIQ* 30 ML UDC PO PRN (08:32)
[2017-07-12] MEDS ORDERED: Melatonin (NF) 3 MG TAB PO PRN (08:32)
[2017-07-12] MEDS ORDERED: Albuterol 2.5 MG/3 ML NEB.SOL* (0.083%) INH PRN (08:32)
[2017-07-12] MEDS ORDERED: Sodium Phosphate ADULT ENEMA* 118 ml bottle PR PRN (08:32)
[2017-07-12] MEDS ORDERED: Acetaminophen TAB* 325 MG PO PRN (08:32)
[2017-07-12] MEDS: Albuterol 2.5 MG/3 ML NEB.SOL* (0.083%) INH SCH (10:36)
[2017-07-12] MEDS: Ferrous Sulfate TAB* 325 MG PO SCH (10:55)
[2017-07-12] MEDS: Calcium/Vitamin D TAB 250/125* TAB PO SCH (10:55)
[2017-07-12] MEDS: Omeprazole CAP* 20 MG PO SCH (10:55)
[2017-07-12] MEDS: Ascorbic Acid TAB* 500 MG PO SCH (10:55)
[2017-07-12] MEDS: Pregabalin CAP(*) 100 MG PO SCH ×2 (10:55→22:25)
[2017-07-12] MEDS: Insulin GLARGINE(*) 1 UNITS UNIT SUBCUT SCH ×2 (10:56→22:24)
[2017-07-12] MEDS: Furosemide IV* 10 MG/ML 10 ML VIAL (100 MG) IV SCH ×2 (10:56→16:21)
[2017-07-12] MEDS: NF:Fluticasone/Vilanterol MDI(NF) 200/25 MDI INH SCH (12:07)
[2017-07-12] MEDS: Heparin VIAL(*) 5000 UNITS/ML VIAL (FIVE THOUSAND) SUBCUT SCH ×2 (12:37→22:25)
[2017-07-12] MEDS: Insulin LISPRO* 1 UNITS UNIT SUBCUT SCH ×2 (12:37→17:28)
[2017-07-12 13:07] LABS: Urine Appearance Clear; Urine Blood Negative (Negative); Urine Color Yellow; Urine Ketones Negative (Negative); Urine Protein Negative (Negative); Urine Specific Gravity 1.007 (1.010-1.030); Urine Urobilinogen Negative (Negative)
--- NOTE | 2017-07-12 13:21 | RAD ---
HISTORY: Bilateral lower extremity edema, hypoxia COMPARISONS: None relevant TECHNIQUE: Multiple transverse and longitudinal ultrasound images were obtained of the bilateral lower extremities from the level of the common femoral vein inferiorly through to the infrapopliteal veins using grayscale, color Doppler, and spectral Doppler imaging with and without compression and with augmentation. FINDINGS: The study is limited by patient body habitus. VEINS: The venous system of the bilateral lower extremities is compressible throughout its course, with normal flow on color Doppler imaging and normal response to augmentation on spectral Doppler imaging. SOFT TISSUES: Unremarkable. OTHER FINDINGS: None. IMPRESSION: NO RIGHT LOWER EXTREMITY DEEP VEIN THROMBOSIS. NO LEFT LOWER EXTREMITY DEEP VEIN THROMBOSIS
--- NOTE | 2017-07-12 13:35 | HP ---
HISTORY AND PHYSICAL: DATE OF ADMISSION: 07/12/17 ADMITTING PROVIDER: Mick Peter MD PRIMARY CARE PROVIDER: Provider is at [facility]. CHIEF COMPLAINT: Shortness of breath; chest pressure. HISTORY OF PRESENT ILLNESS: Shaye Munoz is a 76-year-old female with past medical history of poorly controlled insulin-dependent diabetes mellitus (A1c of 11.3 on 06/20/17), atrial fibrillation, on Coumadin, chronic kidney disease stage 3, chronic leukocytosis, chronic hypercapnic respiratory failure, on 2 L, noncompliance with BiPAP, obstructive sleep apnea, morbid obesity, GERD, ? pulmonary embolism, who presents from [facility] with unclear complaints, but worse hypoxia from baseline. The patient is a very poor historian, unable to provide specifics, timeframes for her complaints. She states she has had some pounding chest pressure and her shortness of breath is "sometimes bad" and "going on for a while now" but cannot state with anymore specificity the timeframe. Ambulance notes state shortness of breath increased for the last 2 days and she was satting 85% on 3 L at [facility]. She has been noncompliant with BiPAP since 06/05/17 and had been sent to [facility] after she refused recommendations for trilogy machine, which would have necessitated moving to SNF outside the local area and her family. She had been referred for hospice evaluation, but refused that at [facility]. She denies any fevers, wheezing, coughing. Her left greater than right legs are swollen and feet are painful. She has been treated for "cellulitis." She says for quite a while, there is mention of ceftriaxone since July between 07/04/17 and 07/07/17 in the [facility] and previously had been on Keflex for 10 days at some point, presumably in June. She denies any abdominal pain, constipation, diarrhea. She is orthopneic at baseline, although she describes the reason for sleeping in a recliner is actually worse headaches when she lies down flat and she cannot do it. In the emergency room, she had a temperature of 99.0, blood pressure 155/98. She was satting 93% on 3.5 L. She is currently on 7 L, satting 95%. Heart rate was 90s to 78. She had a chest x-ray, which was concerning for congestive heart failure with some prominence of the interstitial markings, which have increased from prior and also small bilateral pleural effusions. She was given Lasix 40 mg IV, Solu-Medrol 125, a dose of vanc and Zosyn in the emergency room and referred to hospitalist service for admission overnight. She initially refused admission, but by morning time is now wanting to be admitted to the hospital for acute on chronic hypoxic respiratory failure. Of note, in the [facility] records, it mentions history of pulmonary embolism, but review of EMR notes at [facility] and the patient herself recalls no such diagnosis , but she again is a very poor historian. PAST MEDICAL HISTORY: 1. Insulin-dependent diabetes mellitus, poorly controlled A1c 11.3 on 06/20/17. 2. AFib, on Coumadin. 3. Hypertension. 4. Diastolic CHF (last ejection fraction was 65% on 06/20/16). 5. CKD, stage 3 6. Morbid obesity. 7. GERD. 8. Obstructive sleep apnea, noncompliant with BiPAP and refused former trilogy recommendations. 9. Chronic leukocytosis. 10. Chronic hypercapnic respiratory failure, ? pulmonary embolism noted in [facility], but not other records. PAST SURGICAL HISTORY: 1. Left hip surgery. 2. Hysterectomy. MEDICATIONS: Include: 1. Breo-Ellipta inhaled daily. 2. Melatonin 3 mg p.o. bedtime p.r.n. 3. Mylanta 30 mL p.o. q.6 hours p.r.n. 4. Albuterol 2.5 mg inhaled q.2 hours p.r.n. 5. Tylenol 650 mg p.o. q.4 hours p.r.n. 6. Oxycodone 5 mg p.o. q.6 hours p.r.n. 7. MiraLax 17 g p.o. daily. 8. Senna docusate 2 tabs p.o. bedtime. 9. Levemir 25 units b.i.d. 10. Lyrica 100 mg p.o. q.12 hours. 11. Omeprazole 20 mg p.o. daily. 12. Vitamin C 1250 mg p.o. daily. 13. Prednisone 5 mg p.o. daily. 14. Torsemide 20 mg p.o. daily. 15. Multivitamin (Theragran) 1 tab p.o. daily. 16. Ferrous sulfate 325 mg p.o. daily. 17. Calcium carbonate/vitamin D3, 1 tab p.o. q.a.m. 18. Warfarin 5 mg p.o. daily. 19. Sodium phosphate fleet enema p.r.n. daily per rectum. 20. Glycerine suppository q.a.m. p.r.n. per rectum. 21. Magnesium hydroxide 30 mL p.o. q.p.m. p.r.n. 22. Lispro sliding scale 0 to 14 units q.a.c. ALLERGIES: CETIRIZINE (unknown). FAMILY HISTORY: Mother in a motor vehicle accident. Father with heart disease. 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 She is a DNR/DNI, has copies of a MOLST form from 2015. Her son, Syed Haile, is her medical surrogate. REVIEW OF SYSTEMS: A complete 14-point review of systems is negative except as per HPI. PHYSICAL EXAMINATION GENERAL APPEARANCE: No acute distress. Chronically ill appearing, lying down in the hospital bed. VITAL SIGNS: Blood pressure 155/98. Satting 92% on 3.5 L on admission, currently 94% on 7 L. Pulse rate 91, now at 77. Temperature 99.0. Respiratory rate 20 on admission, is currently 12. HEENT: Normocephalic, atraumatic. Pupils are equal, round and reactive to light. Extraocular motions intact. NECK: Supple. No cervical lymphadenopathy. PULMONARY: Rales at the bilateral bases. No rhonchi or wheezing. CARDIO: Regular rate and rhythm. No murmurs, rubs, or gallops. ABDOMEN: Soft, morbidly obese, nontender. No rebound or guarding. EXTREMITIES: Warm, well perfused. 3+ pitting edema in the right foot, 2+ in the left. 2+ woody nonpitting edema in bilateral calves. NEUROLOGIC: Moving all extremities. Cranial nerves II through XII intact. SKIN: Erythema on bilateral lower extremity calves with minimal warmth, slightly larger on the left calf. Some areas of slight serosanguineous drainage on the left calf. LABORATORY DATA: White count 14.9, hemoglobin 13.8, hematocrit 44, MCV 97, platelets 372,000, neutrophils 66.7%. INR 1.50. Sodium 141, potassium 4.4, chloride 91, carbon dioxide 43, BUN 22, creatinine 1.12, glucose 202. Lactic acid 1.2. Total bili 0.5, AST 17, ALT 16, alk phos 110. Troponin 0.01. CRP 15.3. BNP 79. Flu serology negative. IMAGING: Chest x-ray concerning for most consistent with congestive heart failure with small bilateral pleural effusions and increased interstitial markings. EKG: Normal sinus rhythm, T-wave inversions in V1 through V2 and flat in V3, poor R-wave progression, no ST depressions or elevations. ASSESSMENT AND PLAN: Shaye Munoz is a 76-year-old female with chronic hypercapnic respiratory failure, obstructive sleep apnea and likely obesity hypoventilation syndrome, noncompliant with BiPAP for the last month, diastolic heart failure, atrial fibrillation, on Coumadin, question of pulmonary embolism , presenting with acute on chronic hypercapnic respiratory failure, and vague complaints of chest pounding/pressure of unknown duration. She is admitted to observation status. Potential diastolic congestive heart failure exacerbation. Her stated weight on admission was 300 pounds, we will get an actual weight, but that will be fairly increased from her readings in April. She is status post 40 mg IV Lasix in the emergency room. I am going to give her 60 mg IV b.i.d. for now, daily weights, strict I's and O's since we do not have a true weight on her yet. She is complaining of worse lower extremity edema and has chronic venous stasis changes. She denies any fevers, cough, wheezing. We will continue her Breo-Ellipta and albuterol nebs. She is a never smoker. We do not have access to pulmonary function tests. She said she is now going to use a BiPAP while in the hospital, but it may be challenging to get her to wear it as an outpatient. Consideration for pulmonary consult if necessary. We will continue her home prednisone 5 mg daily and try to look for pulmonary function tests. Continue her Lyrica, put her on sliding scale insulin in addition to her Levemir 25 units b.i.d. for her uncontrolled diabetes mellitus. She is afebrile. No clear signs of pneumonia. We will hold off on further empiric antibiotics at this point. We will add on procalcitonin. She is not complaining of any cough whatsoever. She is a DNR/DNI. Her medical surrogate is Syed Haile. She will continue carbohydrate consistent diet for her atrial fibrillation. Her INR is low. We will increase her Coumadin to 7.5 mg daily and I am getting an ultrasound duplex Doppler of her bilateral lower extremities to rule out deep venous thrombosis. We will give her heparin shots until therapeutic. [id number]/[facility] #: [id number] MTDD
[2017-07-12] MEDS ORDERED: Warfarin TAB(*) 7.5 MG PO SCH (17:00)
[2017-07-12] MEDS: Docusate CAP* 100 MG PO SCH (22:25)
[2017-07-12] MEDS: Senna TAB PO SCH (22:25)
[2017-07-13] MEDS ORDERED: Analgesic BALM* 114 GM TOPICAL PRN (03:26)
[2017-07-13] MEDS: Heparin VIAL(*) 5000 UNITS/ML VIAL (FIVE THOUSAND) SUBCUT SCH (05:32)
[2017-07-13] MEDS: oxyCODONE TAB* 5 MG TAB PO PRN ×2 (05:57→11:50)
[2017-07-13 07:09] LABS: INR 2.33 (0.77-1.02)
[2017-07-13 07:19] LABS: Hematocrit 42 % (35-47); Hemoglobin 13.4 g/dl (12.0-16.0); Mean Corpuscular HGB Conc 32 g/dl (31-36); Mean Corpuscular Hemoglobin 31 pg (27-31); Mean Corpuscular Volume 97 fL (80-97); Mean Platelet Volume 10 um3 (7.4-10.4); Platelet Count 458 10^3/ul (150-450); Red Blood Count 4.35 10^6/ul (4.0-5.4); Red Cell Distribution Width 15 % (10.5-15); White Blood Count 15.3 10^3/ul (3.5-10.8)
[2017-07-13 07:23] LABS: ABS Basophils 0.1 10^3/ul (0-0.2); ABS Eosinophils 0.1 10^3/ul (0-0.6); ABS Lymphocytes 2.8 10^3/ul (1.0-4.8); ABS Monocytes 1.8 10^3/ul (0-0.8); ABS Neutrophils 10.5 10^3/ul (1.5-7.7); ABS Nucleated RBC 0.2 10^3/ul; Eosinophil % 0.6 % (0-6); Lymphocyte % 18.3 % (25-47); Nucleated Red Blood Cells % 1.1
[2017-07-13 07:48] LABS: EGFR Non-African American 47.9 (>60)
[2017-07-13] MEDS: NF:Fluticasone/Vilanterol MDI(NF) 200/25 MDI INH SCH (09:09)
[2017-07-13] MEDS: Omeprazole CAP* 20 MG PO SCH (09:24)
[2017-07-13] MEDS: Ascorbic Acid TAB* 500 MG PO SCH (09:24)
[2017-07-13] MEDS: Furosemide IV* 10 MG/ML 10 ML VIAL (100 MG) IV SCH ×2 (09:24→18:00)
[2017-07-13] MEDS: Calcium/Vitamin D TAB 250/125* TAB PO SCH (09:24)
[2017-07-13] MEDS: Insulin GLARGINE(*) 1 UNITS UNIT SUBCUT SCH ×2 (09:24→21:04)
[2017-07-13] MEDS: Pregabalin CAP(*) 100 MG PO SCH ×2 (09:24→21:04)
[2017-07-13] MEDS: Ferrous Sulfate TAB* 325 MG PO SCH (09:24)
[2017-07-13] MEDS: Insulin LISPRO* 1 UNITS UNIT SUBCUT SCH ×4 (09:25→21:04)
[2017-07-13] MEDS ORDERED: Potassium Chlor TAB* 20 MEQ TAB.ER PO ONE (10:51)
--- NOTE | 2017-07-13 13:32 | PN ---
Subjective Date of Service: 07/13/17 Interval History: offered Bipap but was not actually used. ?waiting for ativan order very tired recorded weight dropped 5kg. attests to some cough. down to 4L Objective Active Medications: Acetaminophen (Tylenol Tab*) 650 mg PO Q4H PRN PRN Reason: PAIN Albuterol (Ventolin 2.5 Mg/3 Ml Neb.Trisha*) 2.5 mg INH Q2H PRN PRN Reason: SOB/WHEEZING Ascorbic Acid (Vitamin C Tab*) 250 mg PO DAILY [facility] Last Admin: 07/13/17 09:24 Dose: 250 mg Calcium/Vitamin D (Oscal D Tab 250/125*) 1 tab PO QAM [facility] Last Admin: 07/13/17 09:24 Dose: 1 tab Docusate Sodium (Colace Cap*) 100 mg PO BEDTIME [facility] Last Admin: 07/12/17 22:25 Dose: 100 mg Ferrous Sulfate (Ferrous Sulfate Tab*) 325 mg PO DAILY [facility] Last Admin: 07/13/17 09:24 Dose: 325 mg Fluticasone/Vilanterol (Breo Ellipta Mdi 200/25(Nf)) 1 puff INH DAILY [facility] Last Admin: 07/13/17 09:09 Dose: Not Given Furosemide (Lasix Iv*) 60 mg IV 0800,1700 [facility] Last Admin: 07/13/17 09:24 Dose: 60 mg Glycerin (Glycerin Adult Supp*) 1 supp [place] QAM PRN PRN Reason: CONSTIPATION Insulin Glargine (Lantus(*)) 25 units SUBCUT BID [facility] Last Admin: 07/13/17 09:24 Dose: 25 unit Insulin Human Lispro (Humalog*) [address] [facility] PRN Reason: Protocol Last Admin: 07/13/17 12:34 Dose: 6 unit Magnesium Hydroxide (Milk Of Magnesia Liq*) 30 ml PO QPM PRN PRN Reason: CONSTIPATION Melatonin (Melatonin (Nf)) 3 mg PO BEDTIME PRN; Protocol PRN Reason: INSOMNIA Multi-Ingredient Liniment/Rub (Riki Valera*) 1 applic TOPICAL BID PRN PRN Reason: TO LEGS Last Admin: 07/13/17 04:35 Dose: 1 applic Omeprazole (Prilosec Cap*) 20 mg PO DAILY [facility] Last Admin: 07/13/17 09:24 Dose: 20 mg Oxycodone HCl (Roxycodone Tab*) 5 mg PO Q6H PRN PRN Reason: PAIN Last Admin: 07/13/17 11:50 Dose: 5 mg Polyethylene Glycol/Electrolytes (Miralax*) 17 gm PO DAILY PRN PRN Reason: CONSTIPATION Pregabalin (Lyrica Cap(*)) 100 mg PO Q12H [facility] Last Admin: 07/13/17 09:24 Dose: 100 mg Senna (Senokot Tab*) 2 tab PO BEDTIME [facility] Last Admin: 07/12/17 22:25 Dose: 2 tab Sodium Biphosphate/Sodium Phosphate (Fleet Enema*) 1 bottle [place] DAILY PRN PRN Reason: CONSTIPATION Warfarin Sodium (Coumadin Tab(*)) 5 mg PO DAILY@1700 [facility] PRN Reason: Protocol Vital Signs - 8 hr 07/13/17 07/13/17 07/13/17 05:57 07:55 08:00 Temperature Pulse Rate Respiratory 20 18 Rate Blood Pressure (mmHg) O2 Sat by Pulse 93 Oximetry 07/13/17 07/13/17 07/13/17 09:02 09:24 09:37 Temperature 97.9 F Pulse Rate 78 Respiratory 16 18 18 Rate Blood Pressure 152/63 (mmHg) O2 Sat by Pulse 93 Oximetry 07/13/17 07/13/17 07/13/17 11:50 11:55 12:01 Temperature 98.1 F Pulse Rate 89 89 Respiratory 20 20 Rate Blood Pressure 169/75 (mmHg) O2 Sat by Pulse 90 Oximetry Oxygen Devices in Use Now: Nasal Cannula Appearance: NAD, more tired appearing. Eyes: No Scleral Icterus, PERRLA Respiratory: Symmetrical Chest Expansion and Respiratory Effort, - - rales right base. otherwise poor/limited exam. Cardiovascular: NL Sounds; No Murmurs; No JVD, RRR Abdominal: NL Sounds; No Tenderness; No Distention, No Hepatosplenomegaly Extremities: - - 3+ edema b/l, erythema R>L calf. Neurological: - - JIMENEZ, following commands. frequently falling asleep. Nutrition: Taking PO's Result Diagrams: 07/13/17 06:42 07/13/17 06:42 Additional Lab and Data: Laboratory Results - last 24 hr 07/12/17 07/12/17 07/13/17 16:41 19:53 06:42 WBC RBC Hgb Hct MCV MCH MCHC RDW Plt Count MPV Neut % (Auto) Lymph % (Auto) [place] % (Auto) Eos % (Auto) Baso % (Auto) Absolute Neuts (auto) Absolute Lymphs (auto) Absolute Monos (auto) Absolute Eos (auto) Absolute Basos (auto) Absolute Nucleated RBC Nucleated RBC % INR (Anticoag Therapy) Sodium 142 Potassium 3.7 Chloride 90 L Carbon Dioxide 44 H* Anion Gap 8 BUN 29 H Creatinine 1.11 H Est GFR ( Amer) 61.6 Est GFR (Non-Af Amer) 47.9 BUN/Creatinine Ratio 26.1 H Glucose 134 H POC Glucose (mg/dL) 326 H 264 H Calcium 8.9 07/13/17 07/13/17 07/13/17 06:42 06:42 07:38 WBC 15.3 H RBC 4.35 Hgb 13.4 Hct 42 MCV 97 MCH 31 MCHC 32 RDW 15 Plt Count 458 H D MPV 10 Neut % (Auto) 68.5 Lymph % (Auto) 18.3 L [place] % (Auto) 11.9 H Eos % (Auto) 0.6 Baso % (Auto) 0.7 Absolute Neuts (auto) 10.5 H Absolute Lymphs (auto) 2.8 Absolute Monos (auto) 1.8 H Absolute Eos (auto) 0.1 Absolute Basos (auto) 0.1 Absolute Nucleated RBC 0.2 Nucleated RBC % 1.1 INR (Anticoag Therapy) 2.33 H Sodium Potassium Chloride Carbon Dioxide Anion Gap BUN Creatinine Est GFR ( Amer) Est GFR (Non-Af Amer) BUN/Creatinine Ratio Glucose POC Glucose (mg/dL) 144 H Calcium 07/13/17 11:55 WBC RBC Hgb Hct MCV MCH MCHC RDW Plt Count MPV Neut % (Auto) Lymph % (Auto) [place] % (Auto) Eos % (Auto) Baso % (Auto) Absolute Neuts (auto) Absolute Lymphs (auto) Absolute Monos (auto) Absolute Eos (auto) Absolute Basos (auto) Absolute Nucleated RBC Nucleated RBC % INR (Anticoag Therapy) Sodium Potassium Chloride Carbon Dioxide Anion Gap BUN Creatinine Est GFR ( Amer) Est GFR (Non-Af Amer) BUN/Creatinine Ratio Glucose POC Glucose (mg/dL) 223 H Calcium Microbiology and Other Data: Microbiology 07/12/17 01:35 Blood Venous Aerobic Blood Culture - Preliminary No Growth Day 1 07/12/17 01:35 Blood Venous Anaerobic Blood Culture - Preliminary No Growth Day 1 07/12/17 00:35 Blood Venous Aerobic Blood Culture - Preliminary No Growth Day 1 07/12/17 00:35 Blood Venous Anaerobic Blood Culture - Preliminary No Growth Day 1 07/12/17 10:35 Nasal Nasal Screen MRSA (PCR)(ANDREEA) - Final Mrsa Detected 07/12/17 00:58 Nasal Influenza Types A,B Antigen (ANDREEA) - Final Specimen received for Influenza A/B Molecular testing Assess/Plan/Problems-Billing Assessment: 76 yo female PMH chronic hypoxic respiratory failure, MILLICENT/OHS not complaint with BIPAP recommendations, diastolic dysfunction p/w worse hypoxia, edema. Diuresing with some improvement. - Patient Problems (1) CHF (congestive heart failure) Current Visit: No Status: Acute Priority: High Code(s): I50.9 - HEART FAILURE, UNSPECIFIED SNOMED Code(s): 18271927 Comment: - CXR with pulmonary edema - continfue furosemide 60IV BID - Echocardiogram before last with diastolic dysfunction. - follow daily weights and strict ios - peripheral edema noted. - oxygen requirements reducing. - (2) Hypercapnic respiratory failure, chronic Current Visit: No Status: Chronic Priority: High Comment: Bipap while in house. Pt has refused as outpatient. Also refused Trilogy previously. (3) Leukocytosis Current Visit: No Status: Acute Code(s): D72.829 - ELEVATED WHITE BLOOD CELL COUNT, UNSPECIFIED SNOMED Code(s): 147329962 Comment: -chronic. - did start ceftriaxone given report of increased cough. will repeat CXR in AM. (4) Afib Current Visit: No Status: Acute Priority: High Code(s): I48.91 - UNSPECIFIED ATRIAL FIBRILLATION SNOMED Code(s): 83127409 Comment: Repeat INR daily. reduce back to home warfarin dose of 5mg daily. Status and Disposition: change to medicine inpatient.
[2017-07-13] MEDS: cefTRIAXone(*) 1 GM in NS 0.9% 50 ML* 50 ML IVPB SCH (15:10)
[2017-07-13] MEDS: Warfarin TAB(*) 5 MG PO SCH ×2 (18:01→19:32)
--- NOTE | 2017-07-13 18:44 | PN ---
Hospitalist Progress Note Date of Service: 07/13/17 Called to the bedside for trouble arousing Ms. Munoz. She awakes to sternal rub but only briefly. Her O2 saturation is 90% on 6L O2. Her lungs are rhonchorous b/l. ABG ordered stat, respiratory therapy attempting now. She has not received narcotics or benzos in the past 8 hours. I discussed these findings with her son Syed and daughter in law, Jane. They confirm that she absolutely would not want to intubated under any circumstances. Bipap is contraindicated given her mental status, but I explained that we may have no other options to improve her mentation. Will transfer to the ICU and attempt a brief trial of bipap with constant monitoring. I explained the risks of this to Syed and Jane, and they agree with a brief trial of bipap.
[2017-07-13] MEDS ORDERED: Vancomycin(*) 2,000 MG in NS 0.9% 500 ML* 500 ML IVPB ONE (20:00)
--- NOTE | 2017-07-13 21:02 | RAD ---
HISTORY: Respiratory failure, hypercarbia COMPARISONS: July 12, 2017 VIEWS: 1: frontal portable view of the chest at 8:50 PM FINDINGS: LINES AND TUBES: None. CARDIOMEDIASTINAL SILHOUETTE: The cardiomediastinal silhouette is stable. PLEURA: There is large right pleural effusion. There is a small left pleural effusion. LUNG PARENCHYMA: There is a diffuse reticular pattern with indistinct pulmonary vessels. ABDOMEN: The upper abdomen is clear. There is no subphrenic gas. BONES AND SOFT TISSUES: No bone or soft tissue abnormalities are noted. IMPRESSION: 1. PULMONARY INTERSTITIAL EDEMA. 2. LARGE RIGHT PLEURAL EFFUSION. SMALL LEFT PLEURAL EFFUSION.
[2017-07-13] MEDS: Senna TAB PO SCH (21:04)
[2017-07-13] MEDS: Mometasone/Formoter 200/5 MDI INH SCH (21:04)
[2017-07-13] MEDS: Docusate CAP* 100 MG PO SCH (21:04)
[2017-07-13] MEDS ORDERED: Vancomycin per Pharmacy* NOTE FOLLOW UP SCH (22:00)
[2017-07-13] MEDS ORDERED: CHLOROTHIAZIDE 500 MG IV ONE (23:00)
[2017-07-14] MEDS: Furosemide IV* 10 MG/ML 10 ML VIAL (100 MG) IV SCH ×4 (00:05→20:23)
[2017-07-14 06:21] LABS: ABS Basophils 0.1 10^3/ul (0-0.2); ABS Eosinophils 0.1 10^3/ul (0-0.6); ABS Lymphocytes 2.7 10^3/ul (1.0-4.8); ABS Monocytes 1.9 10^3/ul (0-0.8); ABS Neutrophils 9.3 10^3/ul (1.5-7.7); ABS Nucleated RBC 0.1 10^3/ul; Hematocrit 43 % (35-47); Hemoglobin 13.3 g/dl (12.0-16.0); Lymphocyte % 19.1 % (25-47); Mean Corpuscular HGB Conc 31 g/dl (31-36); Mean Corpuscular Hemoglobin 30 pg (27-31); Mean Corpuscular Volume 98 fL (80-97); Mean Platelet Volume 9 um3 (7.4-10.4); Nucleated Red Blood Cells % 0.7; Platelet Count 439 10^3/ul (150-450); Red Blood Count 4.39 10^6/ul (4.0-5.4); Red Cell Distribution Width 15 % (10.5-15); White Blood Count 14.2 10^3/ul (3.5-10.8)
[2017-07-14 06:33] LABS: EGFR Non-African American 46.5 (>60); INR 2.86 (0.77-1.02)
[2017-07-14] MEDS ORDERED: Dextrose 50% Syringe 50 ML* 25 GM/50 ML SYRINGE ONE (06:52)
[2017-07-14] MEDS ORDERED: Magnesium Sulfate 2 GM IV* 2 GM/50 ML BAG IVPB ONE ×2 (07:39→18:13)
--- NOTE | 2017-07-14 07:48 | PN ---
Subjective Date of Service: 07/14/17 Interval History: Transferred to ICU for difficulty to arouse and ABG demonstrating hypercapnic respiratory failure with pCO2 >125. Tolerated Bipap overnight. CXR with larger right pleural effusion. Lujan placed and diuresis increased. 850cc uop overnight. recorded weights from 131.2kg to127.6kg. Following commands this AM. hypoglycemic to 59 on BMP. Objective Active Medications: Acetaminophen (Tylenol Tab*) 650 mg PO Q4H PRN PRN Reason: PAIN Albuterol (Ventolin 2.5 Mg/3 Ml Neb.Trisha*) 2.5 mg INH Q2H PRN PRN Reason: SOB/WHEEZING Ascorbic Acid (Vitamin C Tab*) 250 mg PO DAILY [facility] Last Admin: 07/13/17 09:24 Dose: 250 mg Calcium/Vitamin D (Oscal D Tab 250/125*) 1 tab PO QAM [facility] Last Admin: 07/13/17 09:24 Dose: 1 tab Docusate Sodium (Colace Cap*) 100 mg PO BEDTIME [facility] Last Admin: 07/13/17 21:04 Dose: Not Given Ferrous Sulfate (Ferrous Sulfate Tab*) 325 mg PO DAILY [facility] Last Admin: 07/13/17 09:24 Dose: 325 mg Furosemide (Lasix Iv*) 80 mg IV Q8H [facility] Last Admin: 07/14/17 07:38 Dose: 80 mg Glycerin (Glycerin Adult Supp*) 1 supp [place] QAM PRN PRN Reason: CONSTIPATION Ceftriaxone Sodium 1 gm/ (Sodium Chloride) 50 mls @ 200 mls/hr IVPB Q24H [facility] Last Admin: 07/13/17 15:10 Dose: 200 mls/hr Vancomycin HCl 1,000 mg/ (Sodium Chloride) 250 mls @ 166.667 mls/hr IVPB Q12H [facility] Magnesium Sulfate (Magnesium Sulfate 2 Gm Iv*) 2 gm in 50 mls @ 50 mls/hr IVPB ONCE ONE Stop: 07/14/17 08:38 Insulin Human Lispro (Humalog*) 0 units SUBCUT ACHS [facility] PRN Reason: Protocol Last Admin: 07/13/17 21:04 Dose: Not Given Magnesium Hydroxide (Milk Of Magnesia Liq*) 30 ml PO QPM PRN PRN Reason: CONSTIPATION Melatonin (Melatonin (Nf)) 3 mg PO BEDTIME PRN; Protocol PRN Reason: INSOMNIA Mometasone Furoate/Formoterol Fumar (Dulera 200/5 Mdi*) 2 puff INH BID [facility] Last Admin: 07/13/17 21:04 Dose: Not Given Multi-Ingredient Liniment/Rub (Riki Valera*) 1 applic TOPICAL BID PRN PRN Reason: TO LEGS Last Admin: 07/13/17 04:35 Dose: 1 applic Omeprazole (Prilosec Cap*) 20 mg PO DAILY [facility] Last Admin: 07/13/17 09:24 Dose: 20 mg Oxycodone HCl (Roxycodone Tab*) 5 mg PO Q6H PRN PRN Reason: PAIN Last Admin: 07/13/17 11:50 Dose: 5 mg Pharmacy Consult (Vancomycin Per Pharmacy*) 1 note FOLLOW UP .VANC PER PHARMACY [facility] Pharmacy Profile Note (Vancomycin Trough Check) 1 note FOLLOW UP .ENTER TIME ONE Stop: 07/15/17 20:31 Polyethylene Glycol/Electrolytes (Miralax*) 17 gm PO DAILY PRN PRN Reason: CONSTIPATION Pregabalin (Lyrica Cap(*)) 100 mg PO Q12H [facility] Last Admin: 07/13/17 21:04 Dose: Not Given Senna (Senokot Tab*) 2 tab PO BEDTIME [facility] Last Admin: 07/13/17 21:04 Dose: Not Given Warfarin Sodium (Coumadin Tab(*)) 3 mg PO DAILY@1700 [facility] PRN Reason: Protocol Vital Signs - 8 hr 07/13/17 07/13/17 07/13/17 23:00 23:45 23:57 Temperature 97.0 F 97.0 F Pulse Rate 68 91 Respiratory 14 29 Rate Blood Pressure 98/63 170/135 (mmHg) O2 Sat by Pulse 97 85 Oximetry 07/13/17 07/14/17 07/14/17 23:58 00:00 00:01 Temperature 98.6 F 98.4 F Pulse Rate 85 83 82 Respiratory 18 20 21 Rate Blood Pressure 106/85 149/87 (mmHg) O2 Sat by Pulse 98 98 99 Oximetry 07/14/17 07/14/17 07/14/17 00:11 00:32 01:00 Temperature 97.3 F 98.6 F 98.6 F Pulse Rate 81 80 79 Respiratory 18 28 17 Rate Blood Pressure 156/66 137/64 (mmHg) O2 Sat by Pulse 100 99 98 Oximetry 07/14/17 07/14/17 07/14/17 01:30 03:00 03:01 Temperature 98.8 F Pulse Rate 83 84 83 Respiratory 16 31 18 Rate Blood Pressure 148/62 136/57 (mmHg) O2 Sat by Pulse 97 97 96 Oximetry 07/14/17 07/14/17 07/14/17 03:30 04:00 04:30 Temperature 97.0 F Pulse Rate 82 77 77 Respiratory 17 22 17 Rate Blood Pressure 136/55 111/47 114/52 (mmHg) O2 Sat by Pulse 94 94 94 Oximetry 07/14/17 07/14/17 07/14/17 05:00 05:30 06:00 Temperature Pulse Rate 72 77 82 Respiratory 14 15 30 Rate Blood Pressure 112/58 119/52 (mmHg) O2 Sat by Pulse 93 93 93 Oximetry 07/14/17 07/14/17 07/14/17 06:01 07:00 07:01 Temperature Pulse Rate 82 82 84 Respiratory 28 33 52 Rate Blood Pressure 131/69 113/91 (mmHg) O2 Sat by Pulse 93 93 94 Oximetry 07/14/17 07/14/17 07:37 07:38 Temperature 99.5 F Pulse Rate Respiratory 30 Rate Blood Pressure (mmHg) O2 Sat by Pulse Oximetry Oxygen Devices in Use Now: BiPAP Appearance: Chronically ill appearing. Eyes closed but awakens to voice. Respiratory: Symmetrical Chest Expansion and Respiratory Effort, - - distant air sounds bilaterally(anteriorly). no wheezing. slight air leak of bipap mask Cardiovascular: NL Sounds; No Murmurs; No JVD, RRR Abdominal: - - soft, distended(morbidly obese), no flinching to palpation. Extremities: - - 2-3+ pitting foot edema Skin: - - erythema b/l calves R>L. unchanged. Neurological: - - JIMENEZ, following commands, Result Diagrams: 07/14/17 05:55 07/14/17 05:55 Additional Lab and Data: Laboratory Results - last 24 hr 07/13/17 07/13/17 07/13/17 06:42 06:42 06:42 WBC 15.3 H RBC 4.35 Hgb 13.4 Hct 42 MCV 97 MCH 31 MCHC 32 RDW 15 Plt Count 458 H D MPV 10 Neut % (Auto) 68.5 Lymph % (Auto) 18.3 L [place] % (Auto) 11.9 H Eos % (Auto) 0.6 Baso % (Auto) 0.7 Absolute Neuts (auto) 10.5 H Absolute Lymphs (auto) 2.8 Absolute Monos (auto) 1.8 H Absolute Eos (auto) 0.1 Absolute Basos (auto) 0.1 Absolute Nucleated RBC 0.2 Nucleated RBC % 1.1 INR (Anticoag Therapy) 2.33 H Patient Temperature ABG pH ABG pH (Temp Correct) ABG pCO2 ABG pCO2 (Temp Corrct ABG pO2 ABG pO2 (Temp Correct ABG HCO3 ABG O2 Saturation ABG Base Excess Respiration Rate O2 Delivery Device Ventilator Type Vent Mode FiO2 Inspiratory Time PEEP Pressure Support Pressure Control EPAP IPAP BiPAP Sodium 142 Potassium 3.7 Chloride 90 L Carbon Dioxide 44 H* Anion Gap 8 BUN 29 H Creatinine 1.11 H Est GFR ( Amer) 61.6 Est GFR (Non-Af Amer) 47.9 BUN/Creatinine Ratio 26.1 H Glucose 134 H POC Glucose (mg/dL) Calcium 8.9 Magnesium 07/13/17 07/13/17 07/13/17 07:38 11:55 16:44 WBC RBC Hgb Hct MCV MCH MCHC RDW Plt Count MPV Neut % (Auto) Lymph % (Auto) [place] % (Auto) Eos % (Auto) Baso % (Auto) Absolute Neuts (auto) Absolute Lymphs (auto) Absolute Monos (auto) Absolute Eos (auto) Absolute Basos (auto) Absolute Nucleated RBC Nucleated RBC % INR (Anticoag Therapy) Patient Temperature ABG pH ABG pH (Temp Correct) ABG pCO2 ABG pCO2 (Temp Corrct ABG pO2 ABG pO2 (Temp Correct ABG HCO3 ABG O2 Saturation ABG Base Excess Respiration Rate O2 Delivery Device Ventilator Type Vent Mode FiO2 Inspiratory Time PEEP Pressure Support Pressure Control EPAP IPAP BiPAP Sodium Potassium Chloride Carbon Dioxide Anion Gap BUN Creatinine Est GFR ( Amer) Est GFR (Non-Af Amer) BUN/Creatinine Ratio Glucose POC Glucose (mg/dL) 144 H 223 H 180 H Calcium Magnesium 07/13/17 07/13/17 07/14/17 18:55 20:52 05:55 WBC RBC Hgb Hct MCV MCH MCHC RDW Plt Count MPV Neut % (Auto) Lymph % (Auto) [place] % (Auto) Eos % (Auto) Baso % (Auto) Absolute Neuts (auto) Absolute Lymphs (auto) Absolute Monos (auto) Absolute Eos (auto) Absolute Basos (auto) Absolute Nucleated RBC Nucleated RBC % INR (Anticoag Therapy) Patient Temperature Not Reportable ABG pH 7.19 L* ABG pH (Temp Correct) Not Reportable ABG pCO2 > 125 H* ABG pCO2 (Temp Corrct Not Reportable ABG pO2 69 L ABG pO2 (Temp Correct Not Reportable ABG HCO3 40.0 H ABG O2 Saturation 93.5 L ABG Base Excess 19.6 H Respiration Rate Not Reportable O2 Delivery Device n/c Ventilator Type Not Reportable Vent Mode Not Reportable FiO2 Not Reportable Inspiratory Time Not Reportable PEEP Not Reportable Pressure Support Not Reportable Pressure Control Not Reportable EPAP Not Reportable IPAP Not Reportable BiPAP Not Reportable Sodium 146 H Potassium 3.7 Chloride 92 L Carbon Dioxide 51 H* Anion Gap Not Reportable BUN 27 H Creatinine 1.14 H Est GFR ( Amer) 59.8 Est GFR (Non-Af Amer) 46.5 BUN/Creatinine Ratio 23.7 H Glucose 59 L POC Glucose (mg/dL) 118 H Calcium 9.2 Magnesium 1.8 L 07/14/17 07/14/17 05:55 05:55 WBC 14.2 H RBC 4.39 Hgb 13.3 Hct 43 MCV 98 H MCH 30 MCHC 31 RDW 15 Plt Count 439 MPV 9 Neut % (Auto) 65.5 Lymph % (Auto) 19.1 L [place] % (Auto) 13.6 H Eos % (Auto) 1.0 Baso % (Auto) 0.8 Absolute Neuts (auto) 9.3 H Absolute Lymphs (auto) 2.7 Absolute Monos (auto) 1.9 H Absolute Eos (auto) 0.1 Absolute Basos (auto) 0.1 Absolute Nucleated RBC 0.1 Nucleated RBC % 0.7 INR (Anticoag Therapy) 2.86 H Patient Temperature ABG pH ABG pH (Temp Correct) ABG pCO2 ABG pCO2 (Temp Corrct ABG pO2 ABG pO2 (Temp Correct ABG HCO3 ABG O2 Saturation ABG Base Excess Respiration Rate O2 Delivery Device Ventilator Type Vent Mode FiO2 Inspiratory Time PEEP Pressure Support Pressure Control EPAP IPAP BiPAP Sodium Potassium Chloride Carbon Dioxide Anion Gap BUN Creatinine Est GFR ( Amer) Est GFR (Non-Af Amer) BUN/Creatinine Ratio Glucose POC Glucose (mg/dL) Calcium Magnesium Microbiology and Other Data: Microbiology 07/12/17 01:35 Blood Venous Aerobic Blood Culture - Preliminary No Growth Day 2 07/12/17 01:35 Blood Venous Anaerobic Blood Culture - Preliminary No Growth Day 2 07/12/17 00:35 Blood Venous Aerobic Blood Culture - Preliminary No Growth Day 2 07/12/17 00:35 Blood Venous Anaerobic Blood Culture - Preliminary No Growth Day 2 07/12/17 10:35 Nasal Nasal Screen MRSA (PCR)(ANDREEA) - Final Mrsa Detected 07/12/17 00:58 Nasal Influenza Types A,B Antigen (ANDREEA) - Final Specimen received for Influenza A/B Molecular testing Assess/Plan/Problems-Billing Assessment: 76 yo female PMH chronic hypoxic and hypercapnic respiratory failure, MILLICENT/OHS not complaint with BIPAP recommendations, diastolic dysfunction, chronic leukocytosis p/w worse hypoxia, edema. Did not get Bipap overnight HD#1 and was lethargic with hypercapnic respiratory failure needing transfer to ICU. Mental status improving on Bipap. Diuresis continues. right pleural effusion. - Patient Problems (1) Hypercapnic respiratory failure, chronic Current Visit: No Status: Chronic Priority: High Comment: Acute on Chronic failure here. Bipap in ICU overnight with improved mental status. Repeat ABG now. Pt has refused Bipap for last 6 weeks as outpatient. Also refused Trilogy previously if it meant leaving [facility]. (2) CHF (congestive heart failure) Current Visit: No Status: Acute Priority: High Code(s): I50.9 - HEART FAILURE, UNSPECIFIED SNOMED Code(s): 26227385 Comment: - CXR with pulmonary edema and large right pleural effusion. - increased to furosemide 80IV q8. Diuril 500mg was ordered last night but apparently not available in house. - Echocardiogram before last with diastolic dysfunction. - follow daily weights and strict ios - peripheral edema still significant (3) Leukocytosis Current Visit: No Status: Acute Code(s): D72.829 - ELEVATED WHITE BLOOD CELL COUNT, UNSPECIFIED SNOMED Code(s): 186700842 Comment: -chronic. - did start ceftriaxone given report of increased cough. was MRSA nares positive and started on vancomycin given decompensation requiring ICU placement. (4) Afib Current Visit: No Status: Acute Priority: High Code(s): I48.91 - UNSPECIFIED ATRIAL FIBRILLATION SNOMED Code(s): 54249158 Comment: Repeat INR daily. reduce back to warfarin dose of 3mg daily given relatively rapid rise (did miss last night's scheduled 5mg). Mg>2, K>4. (5) Type 2 diabetes mellitus Current Visit: No Status: Acute Comment: hold lantus 25U BID as on bipap and got hypoglycemic. continue SSI lispro. Status and Disposition: medicine inpatient. in ICU
[2017-07-14] MEDS ORDERED: Furosemide IV* 10 MG/ML 10 ML VIAL (100 MG) IV SCH (08:00)
[2017-07-14] MEDS: Mometasone/Formoter 200/5 MDI INH SCH ×2 (08:11→20:24)
[2017-07-14] MEDS: Insulin LISPRO* 1 UNITS UNIT SUBCUT SCH ×4 (08:20→20:24)
[2017-07-14] MEDS: Vancomycin(*) 1,000 MG in NS 0.9% 250 ML* 250 ML IVPB SCH ×2 (09:07→20:22)
[2017-07-14] MEDS: Ascorbic Acid TAB* 500 MG PO SCH (09:44)
[2017-07-14] MEDS: Calcium/Vitamin D TAB 250/125* TAB PO SCH (09:45)
[2017-07-14] MEDS: Ferrous Sulfate TAB* 325 MG PO SCH (09:45)
[2017-07-14] MEDS: Omeprazole CAP* 20 MG PO SCH (09:46)
[2017-07-14] MEDS: Pregabalin CAP(*) 100 MG PO SCH ×3 (09:47→23:16)
--- NOTE | 2017-07-14 14:14 | RAD ---
HISTORY: Hypoxic hypercarbic respiratory failure COMPARISONS: July 13, 2017 VIEWS: 1: frontal portable view of the chest at 2:00 PM FINDINGS: LINES AND TUBES: None. CARDIOMEDIASTINAL SILHOUETTE: The cardiac silhouette is enlarged. The cardiomediastinal silhouette is otherwise normal for portable technique. PLEURA: There are large right and small left pleural effusions. LUNG PARENCHYMA: There is a diffuse reticular pattern with indistinct pulmonary vessels. ABDOMEN: The upper abdomen is clear. There is no subphrenic gas. BONES AND SOFT TISSUES: No bone or soft tissue abnormalities are noted. IMPRESSION: 1. CARDIOMEGALY. 2. LARGE RIGHT AND SMALL LEFT PLEURAL EFFUSIONS. 3. PULMONARY INTERSTITIAL EDEMA
[2017-07-14] MEDS ORDERED: Dextrose 50% Syringe 50 ML* 25 GM/50 ML SYRINGE IV PUSH PRN (14:55)
[2017-07-14] MEDS: cefTRIAXone(*) 1 GM in NS 0.9% 50 ML* 50 ML IVPB SCH (14:58)
[2017-07-14] MEDS ORDERED: LORazepam INJ* 2 MG/ML 1 ML VIAL ONE (16:57)
[2017-07-14] MEDS: LORazepam INJ* 2 MG/ML 1 ML VIAL IV PUSH PRN ×2 (17:00→22:19)
[2017-07-14] MEDS ORDERED: Warfarin TAB(*) 3 MG PO SCH (17:00)
[2017-07-14 17:36] LABS: EGFR Non-African American 51.1 (>60)
[2017-07-14 17:43] LABS: ABS Basophils 0.1 10^3/ul (0-0.2); ABS Eosinophils 0.2 10^3/ul (0-0.6); ABS Lymphocytes 1.9 10^3/ul (1.0-4.8); ABS Monocytes 1.7 10^3/ul (0-0.8); ABS Neutrophils 9.8 10^3/ul (1.5-7.7); ABS Nucleated RBC 0.1 10^3/ul; Eosinophil % 1.4 % (0-6); Hematocrit 43 % (35-47); Hemoglobin 13.4 g/dl (12.0-16.0); Lymphocyte % 13.7 % (25-47); Mean Corpuscular HGB Conc 31 g/dl (31-36); Mean Corpuscular Hemoglobin 30 pg (27-31); Mean Corpuscular Volume 97 fL (80-97); Mean Platelet Volume 9 um3 (7.4-10.4); Nucleated Red Blood Cells % 0.5; Platelet Count 423 10^3/ul (150-450); Red Blood Count 4.45 10^6/ul (4.0-5.4); Red Cell Distribution Width 15 % (10.5-15); White Blood Count 13.6 10^3/ul (3.5-10.8)
[2017-07-14] MEDS ORDERED: KCL 20 MEQ/100 ML IVPREMIX* 20 MEQ/100 ML BAG IV SCH (19:00)
[2017-07-14] MEDS ORDERED: Potassium Chloride IV* 60 MEQ in NS 0.9% 500 ML* 500 ML IVPB ONE (19:00)
[2017-07-14] MEDS: Nystatin TOP POWDER* 15 GM BTL TOPICAL SCH (20:23)
[2017-07-14] MEDS: Senna TAB PO SCH ×2 (20:24→23:16)
[2017-07-14] MEDS: Docusate CAP* 100 MG PO SCH ×2 (20:24→23:16)
[2017-07-14] MEDS: oxyCODONE TAB* 5 MG TAB PO PRN (23:16)
[2017-07-15] MEDS: LORazepam INJ* 2 MG/ML 1 ML VIAL IV PUSH PRN (02:32)
[2017-07-15] MEDS: Furosemide IV* 10 MG/ML 10 ML VIAL (100 MG) IV SCH ×2 (02:33→08:44)
[2017-07-15 06:44] LABS: Hematocrit 43 % (35-47); Hemoglobin 13.7 g/dl (12.0-16.0); Mean Corpuscular HGB Conc 32 g/dl (31-36); Mean Corpuscular Hemoglobin 31 pg (27-31); Mean Corpuscular Volume 96 fL (80-97); Mean Platelet Volume 9 um3 (7.4-10.4); Platelet Count 411 10^3/ul (150-450); Red Cell Distribution Width 15 % (10.5-15); White Blood Count 15.8 10^3/ul (3.5-10.8)
[2017-07-15 06:45] LABS: ABS Basophils 0.1 10^3/ul (0-0.2); ABS Eosinophils 0.2 10^3/ul (0-0.6); ABS Lymphocytes 3.2 10^3/ul (1.0-4.8); ABS Monocytes 2.1 10^3/ul (0-0.8); ABS Neutrophils 10.2 10^3/ul (1.5-7.7); ABS Nucleated RBC 0.1 10^3/ul; Eosinophil % 1.1 % (0-6); INR 2.36 (0.77-1.02); Lymphocyte % 20.2 % (25-47); Nucleated Red Blood Cells % 0.7
[2017-07-15] MEDS: Insulin LISPRO* 1 UNITS UNIT SUBCUT SCH ×2 (07:52→12:13)
[2017-07-15] MEDS: Mometasone/Formoter 200/5 MDI INH SCH (08:13)
[2017-07-15] MEDS: Calcium/Vitamin D TAB 250/125* TAB PO SCH (08:30)
[2017-07-15] MEDS ORDERED: Vancomycin Trough Check NOTE FOLLOW UP ONE (08:30)
[2017-07-15] MEDS: Ascorbic Acid TAB* 500 MG PO SCH (08:30)
[2017-07-15] MEDS ORDERED: acetaZOLAMIDE VIAL* 500 MG VIAL ONE (08:35)
[2017-07-15] MEDS: Ferrous Sulfate TAB* 325 MG PO SCH (08:44)
[2017-07-15] MEDS: Pregabalin CAP(*) 100 MG PO SCH (08:44)
[2017-07-15] MEDS: Omeprazole CAP* 20 MG PO SCH (08:45)
[2017-07-15] MEDS ORDERED: Potassium Chloride IV* 60 MEQ in NS 0.9% 500 ML* 500 ML IVPB ONE (09:00)
[2017-07-15] MEDS ORDERED: acetaZOLAMIDE VIAL* 500 MG in NS 0.9% 50 ML* 50 ML IVPB SCH (09:00)
[2017-07-15] MEDS ORDERED: KCL 20 MEQ/100 ML IVPREMIX* 20 MEQ/100 ML BAG IV SCH (09:00)
[2017-07-15] MEDS: Vancomycin(*) 1,000 MG in NS 0.9% 250 ML* 250 ML IVPB SCH (10:48)
[2017-07-15] MEDS: Nystatin TOP POWDER* 15 GM BTL TOPICAL SCH (10:48)
[2017-07-15] MEDS ORDERED: LORazepam INJ* 2 MG/ML 1 ML VIAL IV PUSH PRN (12:10)
[2017-07-15] MEDS ORDERED: Ondansetron ODT TAB* 4 MG SL PRN (12:10)
[2017-07-15] MEDS ORDERED: Scopolamine 1.5 mg* PATCH TRANSDERM SCH (13:00)
[2017-07-15 13:43] VITALS: BP 137/82
--- NOTE | 2017-07-15 15:04 | PN ---
Subjective Date of Service: 07/15/17 Interval History: Pt asked to have Bipap removed last night as it was hurting her face. on vapotherm 100/40L then 30L. got ativan two more times overnight. More drowsy/lethargic in AM. diuresed net negative 4L. Family all at bedside more than 45 minutes of discussion with them about prognosis if patient is unwilling or unable to tolerate bipap. ABG with pCO2 back up to 97 from last of . [place] ultimately decided on comfort care with continued NC oxygen support(for now) Objective Active Medications: Acetaminophen (Tylenol Tab*) 650 mg PO Q4H PRN PRN Reason: PAIN Dextrose (D50w Syringe 50 Ml*) 25 gm IV PUSH .FOR FS < 60 - SS PRN PRN Reason: FS < 60 Last Admin: 07/14/17 15:09 Dose: 25 gm Potassium Chloride 60 meq/ (Sodium Chloride) 530 mls @ 88.333 mls/hr IVPB ONCE ONE Stop: 07/15/17 14:59 Last Admin: 07/15/17 10:46 Dose: 88.333 mls/hr Lorazepam (Ativan Inj*) 0.5 mg IV PUSH Q4H PRN PRN Reason: Anxiety/Agitation Morphine Sulfate (Morphine Inj (Syringe)*) 2 mg IV Q1H PRN PRN Reason: Pain or Shortness of Breath Multi-Ingredient Liniment/Rub (Riki Valera*) 1 applic TOPICAL BID PRN PRN Reason: TO LEGS Last Admin: 07/13/17 04:35 Dose: 1 applic Ondansetron HCl (Zofran Odt Tab*) 4 mg SL Q8H PRN PRN Reason: NAUSEA/VOMITING Last Admin: 07/15/17 14:40 Dose: 4 mg Pharmacy Profile Note (Scopolamine Patch Remove*) 1 note PATCH OFF .AFTER 72 HOURS SEDA Scopolamine (Transderm-Scop 1.5 Mg Patch*) 1 patch TRANSDERM Q72H SEDA Last Admin: 07/15/17 14:45 Dose: 1 patch Vital Signs - 8 hr 07/15/17 07/15/17 07/15/17 07:00 08:00 08:15 Temperature 98.2 F 98.1 F Pulse Rate 82 80 81 Respiratory 22 18 20 Rate Blood Pressure 148/69 154/79 (mmHg) O2 Sat by Pulse 90 92 93 Oximetry 03/12/18 03/12/18 03/12/18 09:00 10:00 11:00 Temperature 97.9 F 98.2 F 98.2 F Pulse Rate 82 81 79 Respiratory 22 18 15 Rate Blood Pressure 148/66 134/55 147/62 (mmHg) O2 Sat by Pulse 93 92 91 Oximetry 07/15/17 07/15/17 07/15/17 12:00 13:00 13:01 Temperature 98.1 F 97.9 F 97.9 F Pulse Rate 84 88 84 Respiratory 17 22 Rate Blood Pressure 149/78 137/82 (mmHg) O2 Sat by Pulse 91 90 90 Oximetry Oxygen Devices in Use Now: High Flow Heated Nasal Cannula Appearance: chronically ill appearing. tired. Eyes: No Scleral Icterus, PERRLA Neck: NL Appearance and Movements; NL JVP Respiratory: Symmetrical Chest Expansion and Respiratory Effort, - - rhonchi right base. Cardiovascular: NL Sounds; No Murmurs; No JVD, RRR Abdominal: - - super morbid obese, soft, nontender. Extremities: - - 2+ edema, improved Skin: No Rash or Ulcers, No Nodules or Sclerosis Nutrition: Taking PO's Result Diagrams: 07/15/17 06:10 07/15/17 06:10 Additional Lab and Data: Laboratory Results - last 24 hr 07/14/17 07/14/17 07/14/17 14:39 17:00 17:00 WBC 13.6 H RBC 4.45 Hgb 13.4 Hct 43 MCV 97 MCH 30 MCHC 31 RDW 15 Plt Count 423 MPV 9 Neut % (Auto) 71.9 Lymph % (Auto) 13.7 L [place] % (Auto) 12.3 H Eos % (Auto) 1.4 Baso % (Auto) 0.7 Absolute Neuts (auto) 9.8 H Absolute Lymphs (auto) 1.9 Absolute Monos (auto) 1.7 H Absolute Eos (auto) 0.2 Absolute Basos (auto) 0.1 Absolute Nucleated RBC 0.1 Nucleated RBC % 0.5 INR (Anticoag Therapy) Patient Temperature ABG pH 7.44 ABG pH (Temp Correct) Not Reportable ABG pCO2 83 H* ABG pCO2 (Temp Corrct Not Reportable ABG pO2 60 L ABG pO2 (Temp Correct Not Reportable ABG HCO3 45.4 H* ABG O2 Saturation 94.8 L ABG Base Excess 26.4 H Respiration Rate O2 Delivery Device Ventilator Type Vent Mode FiO2 Inspiratory Time PEEP Pressure Support Pressure Control EPAP IPAP BiPAP Sodium 146 H Potassium 3.2 L Chloride 88 L Carbon Dioxide 48 H* Anion Gap Not Reportable BUN 22 Creatinine 1.05 H Est GFR ( Amer) 65.7 Est GFR (Non-Af Amer) 51.1 BUN/Creatinine Ratio 21.0 H Glucose 89 POC Glucose (mg/dL) Calcium 8.6 Magnesium 1.8 L 07/14/17 07/15/17 07/15/17 20:16 06:10 06:10 WBC 15.8 H RBC 4.50 Hgb 13.7 Hct 43 MCV 96 MCH 31 MCHC 32 RDW 15 Plt Count 411 MPV 9 Neut % (Auto) 64.5 Lymph % (Auto) 20.2 L [place] % (Auto) 13.4 H Eos % (Auto) 1.1 Baso % (Auto) 0.8 Absolute Neuts (auto) 10.2 H Absolute Lymphs (auto) 3.2 Absolute Monos (auto) 2.1 H Absolute Eos (auto) 0.2 Absolute Basos (auto) 0.1 Absolute Nucleated RBC 0.1 Nucleated RBC % 0.7 INR (Anticoag Therapy) 2.36 H Patient Temperature ABG pH ABG pH (Temp Correct) ABG pCO2 ABG pCO2 (Temp Corrct ABG pO2 ABG pO2 (Temp Correct ABG HCO3 ABG O2 Saturation ABG Base Excess Respiration Rate O2 Delivery Device Ventilator Type Vent Mode FiO2 Inspiratory Time PEEP Pressure Support Pressure Control EPAP IPAP BiPAP Sodium Potassium Chloride Carbon Dioxide Anion Gap BUN Creatinine Est GFR ( Amer) Est GFR (Non-Af Amer) BUN/Creatinine Ratio Glucose POC Glucose (mg/dL) 74 Calcium Magnesium 07/15/17 07/15/17 07/15/17 06:10 07:48 11:10 WBC RBC Hgb Hct MCV MCH MCHC RDW Plt Count MPV Neut % (Auto) Lymph % (Auto) [place] % (Auto) Eos % (Auto) Baso % (Auto) Absolute Neuts (auto) Absolute Lymphs (auto) Absolute Monos (auto) Absolute Eos (auto) Absolute Basos (auto) Absolute Nucleated RBC Nucleated RBC % INR (Anticoag Therapy) Patient Temperature Not Reportable ABG pH 7.39 ABG pH (Temp Correct) Not Reportable ABG pCO2 97 H* ABG pCO2 (Temp Corrct Not Reportable ABG pO2 73 L ABG pO2 (Temp Correct Not Reportable ABG HCO3 45.8 H* ABG O2 Saturation 94.5 L ABG Base Excess 26.9 H Respiration Rate Not Reportable O2 Delivery Device vapotherm Ventilator Type Not Reportable Vent Mode Not Reportable FiO2 100 Inspiratory Time Not Reportable PEEP Not Reportable Pressure Support Not Reportable Pressure Control Not Reportable EPAP Not Reportable IPAP Not Reportable BiPAP Not Reportable Sodium 145 Potassium 3.3 L Chloride 86 L Carbon Dioxide 53 H* Anion Gap Not Reportable BUN 21 Creatinine 0.97 H Est GFR ( Amer) 72.0 Est GFR (Non-Af Amer) 56.0 BUN/Creatinine Ratio 21.6 H Glucose 63 L POC Glucose (mg/dL) 77 Calcium 8.8 Magnesium 2.1 07/15/17 12:12 WBC RBC Hgb Hct MCV MCH MCHC RDW Plt Count MPV Neut % (Auto) Lymph % (Auto) [place] % (Auto) Eos % (Auto) Baso % (Auto) Absolute Neuts (auto) Absolute Lymphs (auto) Absolute Monos (auto) Absolute Eos (auto) Absolute Basos (auto) Absolute Nucleated RBC Nucleated RBC % INR (Anticoag Therapy) Patient Temperature ABG pH ABG pH (Temp Correct) ABG pCO2 ABG pCO2 (Temp Corrct ABG pO2 ABG pO2 (Temp Correct ABG HCO3 ABG O2 Saturation ABG Base Excess Respiration Rate O2 Delivery Device Ventilator Type Vent Mode FiO2 Inspiratory Time PEEP Pressure Support Pressure Control EPAP IPAP BiPAP Sodium Potassium Chloride Carbon Dioxide Anion Gap BUN Creatinine Est GFR ( Amer) Est GFR (Non-Af Amer) BUN/Creatinine Ratio Glucose POC Glucose (mg/dL) 153 H Calcium Magnesium Microbiology and Other Data: Microbiology 07/12/17 01:35 Blood Venous Aerobic Blood Culture - Preliminary No Growth Day 3 07/12/17 01:35 Blood Venous Anaerobic Blood Culture - Preliminary No Growth Day 3 07/12/17 00:35 Blood Venous Aerobic Blood Culture - Preliminary No Growth Day 3 07/12/17 00:35 Blood Venous Anaerobic Blood Culture - Preliminary No Growth Day 3 07/12/17 10:35 Nasal Nasal Screen MRSA (PCR)(ANDREEA) - Final Mrsa Detected 07/12/17 00:58 Nasal Influenza Types A,B Antigen (ANDREEA) - Final Specimen received for Influenza A/B Molecular testing Assess/Plan/Problems-Billing Assessment: 76 yo female PMH chronic hypoxic and hypercapnic respiratory failure, MILLICENT/OHS not complaint with BIPAP recommendations, diastolic dysfunction, chronic leukocytosis p/w worse hypoxia, edema. Did not get Bipap overnight HD#1 and was lethargic with hypercapnic respiratory failure needing transfer to ICU. Mental status and pCO2 slowly improved on Bipap x 20hr but not willing to tolerate once mental status improved. Aggresively diuresed for dCHF/right pleural effusion. NOW COMFORT CARE with supplemental oxygen support until all family arrives and potential further deescalation. - Patient Problems (1) Hypercapnic respiratory failure, chronic Current Visit: No Status: Chronic Priority: High Comment: Acute on Chronic failure here. refused Bipap last night. ABG with worse hypercarbia unsurprisingly. gave diamox for metabolic alkalosis. diuresing aggresively NOW comfort care. (2) CHF (congestive heart failure) Current Visit: No Status: Acute Priority: High Code(s): I50.9 - HEART FAILURE, UNSPECIFIED SNOMED Code(s): 03282421 Comment: - CXR with pulmonary edema and large right pleural effusion. stop diuresis given GOC/full comfort. (3) Leukocytosis Current Visit: No Status: Acute Code(s): D72.829 - ELEVATED WHITE BLOOD CELL COUNT, UNSPECIFIED SNOMED Code(s): 121949546 Comment: stop vanc/cftx (4) Afib Current Visit: No Status: Acute Priority: High Code(s): I48.91 - UNSPECIFIED ATRIAL FIBRILLATION SNOMED Code(s): 74490255 Comment: stop tele/labs. (5) Type 2 diabetes mellitus Current Visit: No Status: Acute Comment: stop FSGS Status and Disposition: medicine inpatient. transfer to 4th floor for comfort care.
[2017-07-15] MEDS: Morphine INJ* 2 MG/ML 1 ML CARPUJECT IV PRN (19:02)
[2017-07-16] MEDS: Morphine INJ* 2 MG/ML 1 ML CARPUJECT IV PRN (00:56)
--- NOTE | 2017-07-16 03:37 | DS ---
Date of Admission: 07/12/2017 Date of Discharge: 07/16/2017 Discharge Diagnoses acute on chronic hypoxic & hypercapneic respiratory failure acute on chronic diastolic heart failure HPI Shaye Munoz is a 76-year-old female with past medical history of poorly controlled insulin-dependent diabetes mellitus (A1c of 11.3 on 06/20/17), atrial fibrillation, on Coumadin, chronic kidney disease stage 3, chronic leukocytosis, chronic hypercapnic respiratory failure, on 2 L, noncompliance with BiPAP, obstructive sleep apnea, morbid obesity, GERD, ? pulmonary embolism , who presents from [facility] with unclear complaints, but worse hypoxia from baseline. The patient is a very poor historian, unable to provide specifics, timeframes for her complaints. She states she has had some pounding chest pressure and her shortness of breath is "sometimes bad" and "going on for a while now" but cannot state with anymore specificity the timeframe. Ambulance notes state shortness of breath increased for the last 2 days and she was satting 85% on 3 L at [facility]. She has been noncompliant with BiPAP since and had been sent to [facility] after she refused recommendations for trilogy machine, which would have necessitated moving to SNF outside the local area and her family. She had been referred for hospice evaluation, but refused that at [facility]. She denies any fevers, wheezing, coughing. Her left greater than right legs are swollen and feet are painful. She has been treated for "cellulitis." She says for quite a while, there is mention of ceftriaxone since July between 07/04/17 and 07/07/17 in the [facility] and previously had been on Keflex for 10 days at some point, presumably in June. She denies any abdominal pain, constipation, diarrhea. She is orthopneic at baseline, although she describes the reason for sleeping in a recliner is actually worse headaches when she lies down flat and she cannot do it. In the emergency room, she had a temperature of 99.0, blood pressure 155/98. She was satting 93% on 3.5 L. She is currently on 7 L, satting 95%. Heart rate was 90s to 78. She had a chest x-ray, which was concerning for congestive heart failure with some prominence of the interstitial markings, which have increased from prior and also small bilateral pleural effusions. She was given Lasix 40 mg IV, Solu-Medrol 125, a dose of vanc and Zosyn in the emergency room and referred to hospitalist service for admission overnight. She initially refused admission, but by morning time is now wanting to be admitted to the hospital for acute on chronic hypoxic respiratory failure.Of note, in the [facility] records, it mentions history of pulmonary embolism, but review of EMR notes at [facility] and the patient herself recalls no such diagnosis, but she again is a very poor historian. Hospital Course Mrs Munoz was managed initially on the fourth floor, but was transferred to the ICU for a trial of BiPap after being found obtunded with a pCO2 >125 and being a DNR/I. She was able to be stabilized, but further conversations yielded a decision for comfort-only care. She passed at 0150 07/16/2017. Time for Discharge: <30min
[2017-07-18] MEDS ORDERED: Scopolamine PATCH Remove* 1 NOTE MISC PATCH OFF SCH (12:11)
== END 2017-07-16 01:50 | disposition expired | DRG 291 ==
LOC: ED 23:27 → MEDTELE 07-12 08:08 → OBSVTOIN 07-13 14:31 → ICU 07-13 19:30 → MED 07-15 12:10
PROVIDERS: ADMIT Internal Medicine; ATTEND Hospitalist
PROC: 5A09457 Assistance with Respiratory Ventilation, 24-96 Consecutive Hours, Continuous Positive Airway Pressure (ICD-10-PCS; principal; 2017-07-13)
DX: I13.0 Hypertensive heart and chronic kidney disease with heart failure and stage 1 through stage 4 chronic kidney disease, or unspecified chronic kidney disease (principal); I50.33 Acute on chronic diastolic (congestive) heart failure; J96.21 Acute and chronic respiratory failure with hypoxia; E11.22 Type 2 diabetes mellitus with diabetic chronic kidney disease; J96.22 Acute and chronic respiratory failure with hypercapnia; Z68.43 Body mass index [BMI] 50.0-59.9, adult; E11.65 Type 2 diabetes mellitus with hyperglycemia; N18.3 Chronic kidney disease, stage 3 (moderate); I48.91 Unspecified atrial fibrillation; D72.828 Other elevated white blood cell count; G47.33 Obstructive sleep apnea (adult) (pediatric); E66.01 Morbid (severe) obesity due to excess calories; K21.9 Gastro-esophageal reflux disease without esophagitis; Z66 Do not resuscitate; Z99.81 Dependence on supplemental oxygen; Z79.84 Long term (current) use of oral hypoglycemic drugs; Z79.1 Long term (current) use of non-steroidal anti-inflammatories (NSAID); Z79.4 Long term (current) use of insulin; Z79.01 Long term (current) use of anticoagulants; Z79.891 Long term (current) use of opiate analgesic; Z79.52 Long term (current) use of systemic steroids; Z79.899 Other long term (current) drug therapy; Z88.8 Allergy status to other drugs, medicaments and biological substances; Z82.49 Family history of ischemic heart disease and other diseases of the circulatory system
CPT/HCPCS: 36415; 36600; 71045; 80048; 80053; 81003; 82803; 83605; 83735; 83880; 84145; 84484; 85025; 85610; 85730; 86140; 87040; 87502; 87641; 93005; 93970; 94640; 94660; 94760; 99284; A9270-GY; G0378; J0696; J1120; J1644; J1940; J2060; J2270; J2543; J2930; J3370; J3475; J3480